=== PATIENT | male | born 1950 | race American Indian/Alaskan Native ===

== ENCOUNTER 2017-03-11 21:38 | Inpatient (IN) | payer MEDICARE ==
[2017-03-11 23:18] LABS: Hematocrit 22.1 % (35.5-45.6); Hemoglobin 7.2 gm/dl (11.8-15.2); Mean Corpuscular HGB Conc 33 % (32-34); Mean Corpuscular Hemoglobin 30 pg (28-32); Mean Corpuscular Volume 92 fl (84-94); Platelet Count 104 K/mm3 (140-440)
[2017-03-11 23:29] LABS: INR 1.84 (0.87-1.13)
[2017-03-11 23:30] LABS: Partial Thromboplastin Time 52.8 Sec. (24.2-36.6)
[2017-03-11] MEDS ORDERED: NACL 0.9% 1000 ML 1,000 ML IV SCH (23:45)
[2017-03-11 23:46] LABS: Alanine Aminotransferase 9 units/L (7-56); Albumin 1.6 g/dL (3.9-5); BUN/Creatinine Ratio 13; Blood Urea Nitrogen 18 mg/dL (9-20); Calcium 7.6 mg/dL (8.4-10.2); Hemolysis Index 12
[2017-03-12 00:48] LABS: Bacteria,Urine 4+ /HPF (Negative); Bilirubin,Urine NEG (Negative); Blood,Urine MOD (Negative); Color,Urine Amber (Yellow); Mucus,Urine 3+ /HPF; Nitrite,Urine POS (Negative); Protein,Urine <15 mg/dL mg/dL (Negative); Urobilinogen,Urine < 2.0 mg/dL (<2.0)
[2017-03-12] MEDS ORDERED: NACL ONE ×2 (00:48→05:21)
[2017-03-12 00:50] LABS: Benzodiazepines Screen,Urine PRESUMPTIVE NEGATIVE; Cannabinoid Screen,Urine PRESUMPTIVE NEGATIVE; Cocaine Screen,Urine PRESUMPTIVE NEGATIVE; Methadone Screen,Urine PRESUMPTIVE NEGATIVE; Opiate Screen,Urine PRESUMPTIVE NEGATIVE
--- NOTE | 2017-03-12 00:54 | XRay Report ---
FINAL REPORT EXAM: XR CXR CLINICAL INDICATIONS: CP FINDINGS: Frontal view of the chest was acquired. The heart is mildly enlarged. There is a pacing device with leads in the right atrium and right ventricle. There is no evidence of congestive heart failure. There is no consolidative infiltrate. IMPRESSION: MILD CARDIOMEGALY. OTHERWISE, NO ACTIVE DISEASE IN THE CHEST
[2017-03-12 01:13] LABS: Amphetamine Screen,Urine PRESUMPTIVE POSITIVE
[2017-03-12] MEDS ORDERED: LEVAQUIN 750MG/150ML 750 MG/150 ML BAG IV ONE ×2 (01:41→08:28)
[2017-03-12] MEDS ORDERED: LEVAQUIN 500MG/100ML 500 MG/100 ML BAG IV ONE ×2 (01:44→08:39)
--- NOTE | 2017-03-12 01:50 | Emergency Department Report ---
ED GI Bleed HPI - General Chief complaint: GI Bleed Stated complaint: AMS Time Seen by Provider: 03/11/17 22:27 Source: family Mode of arrival: Ambulatory Limitations: Altered Mental Status - History of Present Illness Initial comments: 66 yo male who comes in today due to altered mental status and a gi bleed. Per nursing and family the patient has a history of a prior gi bleed. The patient is a poor historian due to his mental status. Gross blood visualized on rectal exam. Hx of atrial fibrillation with a pacemaker placement. MD complaint: melena -: This evening Radiation: none Quality: other (unknown due to patient's altered mental status) Consistency: constant Improves with: none Worsens with: none Context: history of GI bleed Associated Symptoms: other (altered mental status ) - Related Data Allergies Allergy/AdvReac Type Severity Reaction Status Date / Time cefazolin [From Anc] Allergy Anaphylaxis Verified 03/11/17 22:28 lisinopril Allergy Anaphylaxis Verified 03/11/17 22:27 ED Review of Systems ROS: Stated complaint: AMS Other details as noted in HPI Comment: Unobtainable due to pts medical conditions (altered mental status) Gastrointestinal: melena ED Past Medical Hx - Past Medical History Previous Medical History?: Yes Hx Hypertension: Yes Hx CVA: Yes Hx Congestive Heart Failure: Yes Additional medical history: pace maker - Surgical History Past Surgical History?: Yes Additional Surgical History: pacemaker; spinal surgery and left arm surgery - Social History Smoking Status: Unknown if ever smoked Substance Use Type: None ED Physical Exam - General Limitations: Altered Mental Status General appearance: obtunded - Head Head exam: Present: atraumatic, normocephalic - Eye Eye exam: Present: normal appearance - ENT ENT exam: Present: mucous membranes dry - Neck Neck exam: Present: normal inspection - Respiratory Respiratory exam: Present: normal lung sounds bilaterally. Absent: respiratory distress - Cardiovascular Cardiovascular Exam: Present: regular rate, normal rhythm. Absent: systolic murmur, diastolic murmur, rubs, gallop - GI/Abdominal GI/Abdominal exam: Present: soft, normal bowel sounds - Rectal Rectal exam: Present: heme (+) stool (gross blood visualized ), bloody stool - Extremities Exam Extremities exam: Present: other (decubitus ulcers-bilateral heels) - Back Exam Back exam: Present: other (sacral decubitus ulcer) - Neurological Exam Neurological exam: Present: other (altered-not baseline) - Psychiatric Psychiatric exam: Present: other (altered-not at baseline) - Skin Skin exam: Present: other (decubitus ulcers-bilateral heels/sacral area ) ED Course Vital Signs 03/11/17 22:19 Temperature 90.6 F L Pulse Rate 70 Respiratory 12 Rate Blood Pressure 83/62 O2 Sat by Pulse 98 Oximetry - Reevaluation(s) Reevaluation #1: 03/12/17 02:35 I spoke with the hospitalist about admitting the patient. Imaging pending. Dr. Tilley to take over care. ED Medical Decision Making - Lab Data Result diagrams: 03/11/17 22:59 03/11/17 22:59 - Radiology Data Radiology results: report reviewed Mild cardiomegaly. Head CT-no acute pathology CT abdomen/pelvis-moderate stool, bilateral small pleural effusions, anasarca - Medical Decision Making GI bleed Altered mental status Uti Positive drug screen - Differential Diagnosis GI bleed, altered mental status, uti, positive drug screen Critical care attestation.: If time is entered above; I have spent that time in minutes in the direct care of this critically ill patient, excluding procedure time. ED Disposition Clinical Impression: GI bleed, Altered mental status, UTI (urinary tract infection) Disposition: 09 OP ADMIT IP TO THIS HOSP Is pt being admited?: Yes Does the pt Need Aspirin: No Condition: Critical Referrals: ANNA BIRD MD [Primary Care Provider] - 3-5 Days Forms: Accompanied Note Time of Disposition: 03:02
--- NOTE | 2017-03-12 02:23 | Cat Scan Report ---
FINAL REPORT EXAM: CT HEAD/BRAIN WO CON HISTORY: altered mental status TECHNIQUE: Routine axial imaging was obtained of the brain without IV contrast. FINDINGS: There jzki-ja-runzloqk atrophy. There is diminished attenuation of the periventricular white matter compatible with chronic ischemic white matter changes. There is no evidence of acute stroke or hemorrhage. The ventricular system is appropriate in size and is symmetric. There are benign basal ganglial calcifications bilaterally. The visualized sinuses are clear. The mastoid air cells are well pneumatized. The calvarium appears intact IMPRESSION: Novu-gz-ncziqnda atrophy with chronic ischemic white matter changes. No evidence of acute stroke or hemorrhage.
[2017-03-12] MEDS ORDERED: NACL 0.9% 500 ML 500 ML IV ONE ×2 (02:28→05:16)
[2017-03-12] MEDS ORDERED: VITAMIN K (ADULT ONLY) SUB-Q ONE (02:31)
--- NOTE | 2017-03-12 02:35 | Cat Scan Report ---
FINAL REPORT EXAM: CT ABDOMEN PELVIS W CON HISTORY: GI BLEED TECHNIQUE: Routine axial imaging was obtained of the abdomen and pelvis following the intravenous injection of iodinated contrast. Delayed imaging was also obtained. Sagittal coronal reconstructions were reviewed. FINDINGS: The lung bases reveal bilateral small effusions. There is atelectatic changes/infiltrates in the right lower lobe. The gallbladder has been removed. The liver, spleen, adrenal glands and kidneys appear normal. There is no evidence of hydronephrosis. The pancreas is atrophic. There is no evidence of biliary tree dilatation. There is no evidence of distended bowel loops. There is a large amount retained feces throughout the colon. There is no evidence of free air or free fluid. There is a filter in the IVC. There calcification of the abdominal aorta. In the pelvis there are radiation implant seeds in the prostatic bed. The bladder appears normal. The skeletal structures reveal multilevel disc degeneration in the lumbar spine. The surrounding soft tissues reveal reticulation of the subcutaneous fat throughout the abdomen pelvis compatible with anasarca. IMPRESSION: Large amount retained feces in the colon. No evidence of bowel obstruction or pneumoperitoneum. Cholecystectomy. Bilateral small pleural effusions with infiltrate/atelectasis in the right lower lobe. Extensive arthritic changes lumbar spine. Anasarca.
[2017-03-12] MEDS ORDERED: LEVOPHED DRIP 4 MG/NS 250 ML 4 MG/250 ML BAG IV ONE ×3 (03:35→08:05)
--- NOTE | 2017-03-12 04:35 | Emergency Department Report ---
ED General Adult HPI - General Chief complaint: GI Bleed Stated complaint: AMS Time Seen by Provider: 03/11/17 22:27 Source: family Mode of arrival: Ambulatory Limitations: Altered Mental Status - Related Data Allergies Allergy/AdvReac Type Severity Reaction Status Date / Time cefazolin [From [facility]] Allergy Anaphylaxis Verified 03/11/17 22:28 lisinopril Allergy Anaphylaxis Verified 03/11/17 22:27 ED Review of Systems ROS: Stated complaint: AMS Other details as noted in HPI Gastrointestinal: melena ED Past Medical Hx - Past Medical History Previous Medical History?: Yes Hx Hypertension: Yes Hx CVA: Yes Hx Congestive Heart Failure: Yes Additional medical history: pace maker - Surgical History Past Surgical History?: Yes Additional Surgical History: pacemaker; spinal surgery and left arm surgery - Social History Smoking Status: Unknown if ever smoked Substance Use Type: None ED Physical Exam - General Limitations: Altered Mental Status General appearance: obtunded ED Course Vital Signs 03/11/17 03/12/17 03/12/17 22:19 00:07 00:15 Temperature 90.6 F L Pulse Rate 70 73 Respiratory 12 13 16 Rate Blood Pressure 83/62 89/53 O2 Sat by Pulse 98 99 Oximetry 03/12/17 03/12/17 03/12/17 00:31 00:45 01:01 Temperature Pulse Rate 71 70 71 Respiratory 12 15 12 Rate Blood Pressure 89/53 89/53 89/53 O2 Sat by Pulse 98 97 95 Oximetry 03/12/17 03/12/17 03/12/17 01:15 02:12 02:15 Temperature Pulse Rate 74 79 87 Respiratory 11 L 12 12 Rate Blood Pressure 89/53 84/55 85/56 O2 Sat by Pulse 98 100 97 Oximetry 03/12/17 03/12/17 03/12/17 02:31 02:45 03:01 Temperature Pulse Rate 83 81 78 Respiratory 11 L 11 L 18 Rate Blood Pressure 85/56 84/55 58/37 O2 Sat by Pulse 99 98 96 Oximetry 03/12/17 03/12/17 03:15 03:30 Temperature Pulse Rate 76 75 Respiratory 12 14 Rate Blood Pressure 58/37 65/37 O2 Sat by Pulse 96 94 Oximetry - Central Line Placement Right SC Consent Obtained: emergent situation Time Out Performed: Yes Patient Placed on Monitor/Pulse Ox: Yes Prep: mask, gown, gloves Central Line Prep: Chlorhexidine scrub Local Anesthesia Used: Lidocaine 1% Amount of Anesthesia Used (mls): 5 Ultrasound Used for Placement: No Central Line Lumen Inserted: triple Bloods Obtained for Lab: No Central Line Position: good blood return, all ports aspirated, flus, sutured in place with 2-0 Dressing Applied: Tegaderm, sterile gauze/tape Post Procedure X-Ray: tip of catheter in good p Patient Tolerated Procedure: well, no complications Complications: none ED Medical Decision Making - Lab Data Result diagrams: 03/11/17 22:59 03/11/17 22:59 Critical care attestation.: If time is entered above; I have spent that time in minutes in the direct care of this critically ill patient, excluding procedure time. ED Disposition Clinical Impression: Altered mental status, GI bleed, UTI (urinary tract infection) Disposition: OP ADMIT IP TO THIS HOSP Is pt being admited?: Yes Condition: Critical Referrals: ANNA BIRD MD [Primary Care Provider] - 3-5 Days Forms: Accompanied Note
[2017-03-12 04:38] LABS: Creatine Kinase MB 16.4 ng/mL (0.0-4.0)
[2017-03-12] MEDS ORDERED: VANCOMYCIN/NS 1 GM/250 ML 1 GM/250 ML BAG IV ONE (05:17)
[2017-03-12 05:18] LABS: Chol/HDL Ratio 1.94 %
[2017-03-12] MEDS ORDERED: ZOFRAN IV PRN (05:18)
--- NOTE | 2017-03-12 05:28 | History and Physical Report ---
History of Present Illness Date of examination: 03/12/17 History of present illness: 66 year old man with history of Afib, diabetes, coronary artery disease, prostate cancer, hypothyroidism, recent C. difficile was sent to the emergency room from the [facility] for evaluaion of altered mental status and rectal bleed. The patient is awake, he is unable to give a history. He had 1 episode of rectal bleed here in the ER. Blood pressure upon arrival was systolic 83 and dropped to 50s. Review of system is unobtainable PAST MEDICAL HISTORY:Afib, diabetes, coronary artery disease, prostate cancer, hypothyroidism, recent C. difficile PAST SURGICAL HISTORY: Pacemaker FAMILY HISTORY: Unknown SOCIAL HISTORY: residential resident, unknown tobacco, alcohol, drugs Medications and Allergies Allergies Allergy/AdvReac Type Severity Reaction Status Date / Time cefazolin [From Anc] Allergy Anaphylaxis Verified 03/11/17 22:28 lisinopril Allergy Anaphylaxis Verified 03/11/17 22:27 Home Medications Medication Instructions Recorded Confirmed Last Taken Type Acetaminophen 650 mg PO Q4H PRN 03/12/17 03/12/17 Unknown History Ascorbic Acid 500 mg PO QDAY 03/12/17 03/12/17 Unknown History Calcium Alginate [Bertin] 1 each TP QDAY 03/12/17 03/12/17 Unknown History Carvedilol 25 mg PO BID 03/12/17 03/12/17 Unknown History Cholestyramine (with Sugar) 378 gm PO TID 03/12/17 03/12/17 Unknown History [Questran Powder] Ferrous Sulfate [Iron] 325 mg PO QDAY 03/12/17 03/12/17 Unknown History Furosemide [Lasix] 20 mg PO QDAY 03/12/17 03/12/17 Unknown History LORazepam [Ativan] 0.5 mg PO Q6H PRN 03/12/17 03/12/17 Unknown History Levofloxacin [Levaquin] 750 mg PO QDAY 03/12/17 03/12/17 Unknown History Levothyroxine Sodium 200 mcg PO QDAY 03/12/17 03/12/17 Unknown History Magnesium Oxide 400 mg PO BID 03/12/17 03/12/17 Unknown History Multivit-Min/Iron Fum/Folic AC 1 each PO QDAY 03/12/17 03/12/17 Unknown History [Bdwqq-Kbbdydw-Drjneoyv Tablet] Ondansetron [Zofran Odt] 4 mg PO Q6H 03/12/17 03/12/17 Unknown History Pantoprazole [Protonix TAB] 40 mg PO QDAY 03/12/17 03/12/17 Unknown History Potassium Chloride 20 meq PO BID 03/12/17 03/12/17 Unknown History Povidone-Iodine [Betadine] 30 ml OP QDAY 03/12/17 03/12/17 Unknown History Rivaroxaban [Xarelto] 20 mg PO QDAY 03/12/17 03/12/17 Unknown History Silver Sulfadiazine [Silvadene] 1,000 gm TP QDAY 03/12/17 03/12/17 Unknown History Sodium Bicarbonate 650 mg PO Q8H 03/12/17 03/12/17 Unknown History Trazodone HCl 50 mg PO QDAY 03/12/17 03/12/17 Unknown History Zinc Sulfate 220 mg PO QDAY 03/12/17 03/12/17 Unknown History metroNIDAZOLE [Flagyl] 500 mg PO Q8HR 03/12/17 03/12/17 Unknown History oxyCODONE /ACETAMINOPHEN [Percocet 1 tab PO Q4HR 03/12/17 03/12/17 Unknown History 5/325] Active Meds: Active Medications Acetaminophen (Tylenol) 650 mg PO Q4H PRN PRN Reason: Pain MILD(1-3)/Fever >100.5/GUAJARDO Sodium Chloride (Nacl 0.9% 1000 Ml) 1,000 mls @ 40 mls/hr IV DIRECT CORNLEIO Vancomycin HCl (Vancomycin/Ns 1 Gm/250 Ml) 1 gm in 250 mls @ 167.007 mls/hr IV ONCE ONE PRN Reason: Protocol Stop: 03/12/17 06:46 Ondansetron HCl (Zofran) 4 mg IV Q8H PRN PRN Reason: N/V unrelieved by Reglan Exam - Physical Exam Narrative exam: Gen. appearance: Patient lying in bed in no acute distress HEENT: Normocephalic/atraumatic, pupils equal round reactive to light, extra occular movement intact, no scleral icterus, no JVD or thyromegaly or nodule, neck is supple, mucous membrane moist, no erythema or exudate Heart: S1-S2, regular rate and rhythm Lungs: Clear to auscultation bilateral breathing comfortable Abdomen: Positive bowel sounds, nontender, nondistended, no organomegaly Extremities: + edema, cyanosis, clubbing Neuro:: Difficult to assess Skin: Lower extremities and sacral ulcers, No rash, nodules - Constitutional Vitals: Temp Pulse Resp BP Pulse Ox 90.6 F L 75 14 65/37 94 03/11/17 22:19 03/12/17 03:30 03/12/17 03:30 03/12/17 03:30 03/12/17 03:30 Results - Labs CBC & Chem 7: 03/20/17 05:30 03/20/17 05:30 Labs: Abnormal lab results 03/11/17 03/11/17 03/11/17 Range/Units 00:10 22:59 22:59 RBC 2.40 L (3.65-5.03) M/mm3 Hgb 7.2 L (11.8-15.2) gm/dl Hct 22.1 L (35.5-45.6) % RDW 18.0 H (13.2-15.2) % Plt Count 104 L (140-440) K/mm3 PT 22.3 H (12.2-14.9) Sec. INR 1.84 H (0.87-1.13) APTT 52.8 H (24.2-36.6) Sec. Chloride (98-107) mmol/L Glucose (75-100) mg/dL Calcium (8.4-10.2) mg/dL Total Creatine Kinase (55-170) units/L CK-MB (CK-2) (0.0-4.0) ng/mL CK-MB (CK-2) Rel Index (0-4) Troponin T (0.00-0.029) ng/mL NT-Pro-B Natriuret Pep (0-900) pg/mL Total Protein (6.3-8.2) g/dL Albumin (3.9-5) g/dL LDL Cholesterol Direct (50-130) mg/dL HDL Cholesterol (40-59) mg/dL Urine WBC (Auto) 142.0 H (0.0-6.0) /HPF Crossmatch 03/11/17 03/11/17 03/12/17 Range/Units 22:59 22:59 Unknown RBC (3.65-5.03) M/mm3 Hgb (11.8-15.2) gm/dl Hct (35.5-45.6) % RDW (13.2-15.2) % Plt Count (140-440) K/mm3 PT (12.2-14.9) Sec. INR (0.87-1.13) APTT (24.2-36.6) Sec. Chloride 108.7 H (98-107) mmol/L Glucose 72 L (75-100) mg/dL Calcium 7.6 L (8.4-10.2) mg/dL Total Creatine Kinase 272 H (55-170) units/L CK-MB (CK-2) 16.4 H (0.0-4.0) ng/mL CK-MB (CK-2) Rel Index 6.0 H (0-4) Troponin T 0.165 H* (0.00-0.029) ng/mL NT-Pro-B Natriuret Pep 4673 H (0-900) pg/mL Total Protein 4.9 L (6.3-8.2) g/dL Albumin 1.6 L (3.9-5) g/dL LDL Cholesterol Direct 26 L (50-130) mg/dL HDL Cholesterol 34 L (40-59) mg/dL Urine WBC (Auto) (0.0-6.0) /HPF Crossmatch See Detail - Imaging and Cardiology CT scan - abdomen: report reviewed CT Scan - head: report reviewed CT scan - pelvis: report reviewed Assessment and Plan Assessment Rectal bleed Hypotension, GI related Pneumonia Blood loss anemia UTI Abnormal cardiac enzymes Afib with coagulopathy Thrombocytopenia Chf, stable Hypothyroidism LE and sacral ulcers History of prostate cancer Plan Admit to medicine Continue levophed drip, and IV fluids secondary to CHF Transfuse blood and frozen plasma, check serial hemoglobin Consult GI, case discussed with Dr Baez Consult cardiology, case discussed with dr Garcia, consult critical care Check cardiac enzymes, echo Start IV levaquin, give a dose of vancomycin, follow cultures Consult wound care Dvt prophalaxis
--- NOTE | 2017-03-12 05:30 | XRay Report ---
FINAL REPORT EXAM: XR CHEST 1V AP HISTORY: central line placement-right subclavian TECHNIQUE: A portable upright view of the chest was obtained. Comparison is made to the study of 03/11/2017. FINDINGS: Since the previous study there is placement of a right-sided central venous line 3 subclavian venous approach. The tip of the line is in the distal superior vena cava. There is no evidence of pneumothorax. The heart is mildly enlarged. The lungs are not congested. The thoracic aorta is moderately tortuous. Pleural fluid is not seen. There is a pacemaker overlying the left chest wall with leads in the right atrium right ventricle. The bones and soft tissues do not show any acute changes. IMPRESSION: Satisfactory placement of right-sided subclavian line with the tip in the distal superior vena cava. No pneumothorax. Cardiomegaly. Tortuosity of the thoracic aorta. No acute infiltrates or congestion.
[2017-03-12 06:15] LABS: Hematocrit 22.4 % (35.5-45.6); Hemoglobin 7.4 gm/dl (11.8-15.2)
[2017-03-12 06:48] LABS: Creatine Kinase MB 15.2 ng/mL (0.0-4.0)
--- NOTE | 2017-03-12 08:41 | Event Note ---
Date: 03/12/17 Patient with GI bleed with elevated Troponins. GI and Cardiology consulted.
--- NOTE | 2017-03-12 10:08 | Consultation ---
History of Present Illness Consult date: 03/12/17 Requesting physician: ANNA IVEY Consult reason: abnormal cardiac enzymes History of present illness: The patient unfortunately is a very poor historian. He is alert but unable to give any history. Apparently was transferred from the [place] [facility] after he had an episode of rectal bleed. Patient has a history apparently of C. difficile colitis and also chronic atrial fibrillation on long-term Coumadin therapy. Also noted is a indwelling AICD. Patient was noted to be significantly anemic. Troponin was borderline elevated and hence cardiology is being consulted. No apparent ischemic changes in the EKG. Unfortunately no further history could be obtained Past History Past Medical History: atrial fib, other (DVT) Past Surgical History: Other (could not be obtained) Social history: other (could not be obtained) Family history: other (could not be obtained) Medications and Allergies Allergies Allergy/AdvReac Type Severity Reaction Status Date / Time cefazolin [From [facility]] Allergy Anaphylaxis Verified 03/11/17 22:28 lisinopril Allergy Anaphylaxis Verified 03/11/17 22:27 Home Medications Medication Instructions Recorded Confirmed Last Taken Type Acetaminophen 650 mg PO PRN 03/12/17 Unknown History Ascorbic Acid 500 mg PO QDAY 03/12/17 03/12/17 Unknown History Calcium Alginate [Bertin] 1 each TP QDAY 03/12/17 03/12/17 Unknown History Carvedilol 25 mg PO BID 03/12/17 03/12/17 Unknown History Cholestyramine (with Sugar) 378 gm PO 03/12/17 Unknown History [Questran Powder] Ferrous Sulfate [Iron] 325 mg PO QDAY 03/12/17 03/12/17 Unknown History Furosemide [Lasix] 20 mg PO QDAY 03/12/17 03/12/17 Unknown History LORazepam [Ativan] 0.5 mg PO Q6H PRN 03/12/17 03/12/17 Unknown History Levofloxacin [Levaquin] 750 mg PO QDAY 03/12/17 03/12/17 Unknown History Levothyroxine Sodium 200 mcg PO QDAY 03/12/17 03/12/17 Unknown History Magnesium Oxide 400 mg PO BID 03/12/17 03/12/17 Unknown History Multivit-Min/Iron Fum/Folic AC 1 each PO QDAY 03/12/17 03/12/17 Unknown History [Aarpv-Hcsvpep-Luirvcny Tablet] Ondansetron [Zofran Odt] 4 mg PO Q6H 03/12/17 03/12/17 Unknown History Pantoprazole [Protonix TAB] 40 mg PO 03/12/17 Unknown History Potassium Chloride 20 meq PO BID 03/12/17 03/12/17 Unknown History Povidone-Iodine [Betadine] 30 ml OP QDAY 03/12/17 03/12/17 Unknown History Rivaroxaban [Xarelto] 20 mg PO QDAY 03/12/17 03/12/17 Unknown History Silver Sulfadiazine [Silvadene] 1,000 gm TP 03/12/17 Unknown History Sodium Bicarbonate 650 mg PO 03/12/17 Unknown History Trazodone HCl 50 mg PO QDAY 03/12/17 03/12/17 Unknown History Zinc Sulfate 220 mg PO QDAY 03/12/17 03/12/17 Unknown History metroNIDAZOLE [Flagyl] 500 mg PO Q8HR 03/12/17 03/12/17 Unknown History oxyCODONE /ACETAMINOPHEN [Percocet 1 tab PO Q4HR 03/12/17 03/12/17 Unknown History 5/325] Active Meds: Active Medications Acetaminophen (Tylenol) 650 mg PO Q4H PRN PRN Reason: Pain MILD(1-3)/Fever >100.5/GUAJARDO Sodium Chloride (Nacl 0.9% 1000 Ml) 1,000 mls @ 40 mls/hr IV DIRECT CORNELIO Norepinephrine (Levophed Drip 4 Mg/Ns 250 Ml) 4 mg in 250 mls @ 7.5 mls/hr IV TITR ONE; 2 MCG/MIN PRN Reason: Protocol Stop: 03/13/17 13:04 Last Titration: 03/12/17 04:30 Dose: 20 mcg/min, 75 mls/hr Ondansetron HCl (Zofran) 4 mg IV Q8H PRN PRN Reason: N/V unrelieved by Reglan Review of Systems All systems: negative (as mentioned in H&P. Unfortunately no good history could be affected per the patient) Physical Examination Vital Signs Temp Pulse Resp BP Pulse Ox 90.6 F L 70 12 83/62 98 03/11/17 22:19 03/11/17 22:19 03/11/17 22:19 03/11/17 22:19 03/11/17 22:19 Narrative exam: Vitals reviewed GEN: No acute distress noted HEENT: Carotids 2+ NECK: Supple CVS: S1 and S2 heard no significant murmur or gallop noted LUNGS/CHEST: Normal auscultation ABD: Soft nontender Extremities: Contracted with 1-2+ edema fever pulses NEURO: Alert moves all all 4 extremities Results 03/12/17 05:51 03/11/17 22:59 Cardiac Enzymes 03/11/17 03/12/17 03/12/17 Range/Units 22:59 05:51 Unknown AST 24 (5-40) units/L CK-MB (CK-2) 15.2 H 16.4 H (0.0-4.0) ng/mL Coagulation 03/11/17 Range/Units 22:59 PT 22.3 H (12.2-14.9) Sec. INR 1.84 H (0.87-1.13) APTT 52.8 H (24.2-36.6) Sec. Lipids 03/12/17 Range/Units Unknown Triglycerides 34 (2-149) mg/dL Cholesterol 66 (50-199) mg/dL HDL Cholesterol 34 L (40-59) mg/dL Cholesterol/HDL Ratio 1.94 % CBC 03/11/17 03/12/17 Range/Units 22:59 05:51 WBC 7.6 (4.5-11.0) K/mm3 RBC 2.40 L (3.65-5.03) M/mm3 Hgb 7.2 L 7.4 L (11.8-15.2) gm/dl Hct 22.1 L 22.4 L (35.5-45.6) % Plt Count 104 L (140-440) K/mm3 Comprehensive Metabolic Panel 03/11/17 Range/Units 22:59 Sodium 143 (137-145) mmol/L Potassium 4.9 (3.6-5.0) mmol/L Chloride 108.7 H (98-107) mmol/L Carbon Dioxide 26 (22-30) mmol/L BUN 18 (9-20) mg/dL Creatinine 1.4 (0.8-1.5) mg/dL Glucose 72 L (75-100) mg/dL Calcium 7.6 L (8.4-10.2) mg/dL AST 24 (5-40) units/L ALT 9 (7-56) units/L Alkaline Phosphatase 85 (35-129) units/L Total Protein 4.9 L (6.3-8.2) g/dL Albumin 1.6 L (3.9-5) g/dL EKG interpretations - Telemetry EKG Rhythm: Sinus Rhythm Assessment and Plan 1. GI bleed workup as per primary team 2. Nonspecific elevated troponin in the setting of GI bleed with a known underlying history 3. Hypotension likely secondary to GI bleed and dehydration 4. Advanced dementia with poor verbal status 5. History of atrial fibrillation currently in sinus rhythm 6. Presence of defibrillator likely for cardiomyopathy Plan No workup for elevated troponin Extremely conservative care Poor prognosis
[2017-03-12 10:48] LABS: Hematocrit 26.3 % (35.5-45.6); Hemoglobin 8.5 gm/dl (11.8-15.2)
[2017-03-12 11:42] LABS: Creatine Kinase MB 12.7 ng/mL (0.0-4.0)
[2017-03-12] MEDS ORDERED: D50W (25GM) Syringe IV ONE (12:14)
--- NOTE | 2017-03-12 12:20 | Gastroenterology Consultation ---
History of Present Illness - Reason for Consult Consult date: 03/12/17 Anemia, Rectal Bleed Requesting physician: ANNA IVEY - History of Present Illness The patient is non-verbal, and the hx is per the sister (knowledgeable, present) , nursing staff, and chart. The patient was brought to the ER for AMS from a senior living (newly there for 1 week after d/c from [facility] for "c diff") but has been in/out of [facility], [facility], [facility], [place], and [place] over the last 6 months. His condition started with a fall a few months ago, and he was dx with spinal stenosis that led to cervical surgery. He had heart issues (?AF ?CHF) and a pacemaker was placed ("his heart stopped for two minutes "). He has become progressively more immobile/bedbound, and his mental status has waxed and waned since then. At every admission, per the sister, he is noted to have chronic anemia, and he gets blood. A colonoscopy was done at [facility] (she will bring the records), and it showed hemorrhoids only. She is not sure about an EGD, but he had ulcers years ago. He takes chronic warfarin for the atrial fibrillation. He had a CT in the ER that showed a likely mild rectal stool impaction, and he had a small amount of blood in his stool in the ER (none on the floor). He was placed on levophed on admit, but this is being weaned off after his blood transfusion. Past History Past Medical History: atrial fib, anemia, cancer (Hx of prostate CA), hypertension, other (DVT, pacemaker) Past Surgical History: appendectomy, cholecystectomy, Other (cervical neck, PM) Social history: other (Lives in [place]; recently was with family) Family history: no significant family history Medications and Allergies Allergies Allergy/AdvReac Type Severity Reaction Status Date / Time cefazolin [From Anc] Allergy Anaphylaxis Verified 03/11/17 22:28 lisinopril Allergy Anaphylaxis Verified 03/11/17 22:27 Home Medications Medication Instructions Recorded Confirmed Last Taken Type Acetaminophen 650 mg PO Q4H PRN 03/12/17 03/12/17 Unknown History Ascorbic Acid 500 mg PO QDAY 03/12/17 03/12/17 Unknown History Calcium Alginate [Bertin] 1 each TP QDAY 03/12/17 03/12/17 Unknown History Carvedilol 25 mg PO BID 03/12/17 03/12/17 Unknown History Cholestyramine (with Sugar) 378 gm PO TID 03/12/17 03/12/17 Unknown History [Questran Powder] Ferrous Sulfate [Iron] 325 mg PO QDAY 03/12/17 03/12/17 Unknown History Furosemide [Lasix] 20 mg PO QDAY 03/12/17 03/12/17 Unknown History LORazepam [Ativan] 0.5 mg PO Q6H PRN 03/12/17 03/12/17 Unknown History Levofloxacin [Levaquin] 750 mg PO QDAY 03/12/17 03/12/17 Unknown History Levothyroxine Sodium 200 mcg PO QDAY 03/12/17 03/12/17 Unknown History Magnesium Oxide 400 mg PO BID 03/12/17 03/12/17 Unknown History Multivit-Min/Iron Fum/Folic AC 1 each PO QDAY 03/12/17 03/12/17 Unknown History [Vzdpb-Phbyyfb-Bhuwmomk Tablet] Ondansetron [Zofran Odt] 4 mg PO Q6H 03/12/17 03/12/17 Unknown History Pantoprazole [Protonix TAB] 40 mg PO QDAY 03/12/17 03/12/17 Unknown History Potassium Chloride 20 meq PO BID 03/12/17 03/12/17 Unknown History Povidone-Iodine [Betadine] 30 ml OP QDAY 03/12/17 03/12/17 Unknown History Rivaroxaban [Xarelto] 20 mg PO QDAY 03/12/17 03/12/17 Unknown History Silver Sulfadiazine [Silvadene] 1,000 gm TP QDAY 03/12/17 03/12/17 Unknown History Sodium Bicarbonate 650 mg PO Q8H 03/12/17 03/12/17 Unknown History Trazodone HCl 50 mg PO QDAY 03/12/17 03/12/17 Unknown History Zinc Sulfate 220 mg PO QDAY 03/12/17 03/12/17 Unknown History metroNIDAZOLE [Flagyl] 500 mg PO Q8HR 03/12/17 03/12/17 Unknown History oxyCODONE /ACETAMINOPHEN [Percocet 1 tab PO Q4HR 03/12/17 03/12/17 Unknown History 5/325] Active Meds: Active Medications Acetaminophen (Tylenol) 650 mg PO Q4H PRN PRN Reason: Pain MILD(1-3)/Fever >100.5/GUAJARDO Dextrose (D50w (25gm) Syringe) 25 ml IV ONCE ONE Stop: 03/12/17 12:15 Sodium Chloride (Nacl 0.9% 1000 Ml) 1,000 mls @ 40 mls/hr IV DIRECT CORNELIO Norepinephrine (Levophed Drip 4 Mg/Ns 250 Ml) 4 mg in 250 mls @ 7.5 mls/hr IV TITR ONE; 2 MCG/MIN PRN Reason: Protocol Stop: 03/13/17 13:04 Last Titration: 03/12/17 04:30 Dose: 20 mcg/min, 75 mls/hr Metronidazole (Flagyl 500 Mg/100 Ml) 500 mg in 100 mls @ 100 mls/hr IV Q8H CORNELIO Ondansetron HCl (Zofran) 4 mg IV Q8H PRN PRN Reason: N/V unrelieved by Reglan I have reviewed/reconciled the medication. Review of Systems - Review of Systems ROS unobtainable: due to mental status Exam - Constitutional Vital Signs: Temp Pulse Resp BP Pulse Ox 97.2 F L 79 14 113/89 98 03/12/17 08:30 03/12/17 07:10 03/12/17 07:10 03/12/17 07:10 03/12/17 07:10 General appearance: mild distress (resists passive movement of extremeties) - EENT Eyes: PERRL, EOM intact ENT: clear oral mucosa, poor dentition, no thrush - Neck Neck: supple, normal ROM - Respiratory Respiratory effort: normal Respiratory: bilateral: CTA - Cardiovascular Rhythm: other (Pacemaker site L chest wall with some eschar still present) Heart Sounds: Present: S1 & S2 Extremities: no ischemia, No edema, abnormal (Bilateral ankles wrapped with skin breakdown noted as per RN notes) - Gastrointestinal General gastrointestinal: Present: soft, non-tender, distended (minimal distention without guard or peritoneal signs) - Integumentary Integumentary: Present: warm, dry - Neurologic Neurological: other (Opens eyes, contracted, no response to commands, mumbles a few words) - Labs CBC & Chem 7: 03/12/17 10:45 03/11/17 22:59 Lab Results: Laboratory Results - last 24 hr 03/11/17 03/11/17 03/11/17 00:10 00:10 22:59 WBC 7.6 RBC 2.40 L Hgb 7.2 L Hct 22.1 L MCV 92 MCH 30 MCHC 33 RDW 18.0 H Plt Count 104 L PT INR APTT Sodium Potassium Chloride Carbon Dioxide Anion Gap BUN Creatinine Estimated GFR BUN/Creatinine Ratio Glucose Calcium Total Bilirubin AST ALT Alkaline Phosphatase Total Creatine Kinase CK-MB (CK-2) CK-MB (CK-2) Rel Index Troponin T NT-Pro-B Natriuret Pep Total Protein Albumin Albumin/Globulin Ratio Triglycerides Cholesterol LDL Cholesterol Direct HDL Cholesterol Cholesterol/HDL Ratio Urine Color Aide Urine Turbidity Clear Urine pH 5.0 Ur Specific [place] 1.018 Urine Protein <15 mg/dl Urine Glucose (UA) Neg Urine Ketones Neg Urine Blood Mod Urine Nitrite Pos Urine Bilirubin Neg Urine Urobilinogen < 2.0 Ur Leukocyte Esterase Lg Urine WBC (Auto) 142.0 H Urine RBC (Auto) 9.0 U Epithel Cells (Auto) < 1.0 Urine Bacteria (Auto) 4+ Urine Mucus 3+ Urine Opiates Screen Presumptive negative Urine Methadone Screen Presumptive negative Ur Barbiturates Screen Presumptive negative Ur Phencyclidine Scrn Presumptive negative Ur Amphetamines Screen Presumptive positive U Benzodiazepines Scrn Presumptive negative Urine Cocaine Screen Presumptive negative U Marijuana (THC) Screen Presumptive negative Drugs of Abuse Note Disclamer Blood Type Antibody Screen Crossmatch 03/11/17 03/11/17 03/11/17 22:59 22:59 22:59 WBC RBC Hgb Hct MCV MCH MCHC RDW Plt Count PT 22.3 H INR 1.84 H APTT 52.8 H Sodium 143 Potassium 4.9 Chloride 108.7 H Carbon Dioxide 26 Anion Gap 13 BUN 18 Creatinine 1.4 Estimated GFR > 60 BUN/Creatinine Ratio 13 Glucose 72 L Calcium 7.6 L Total Bilirubin 0.60 AST 24 ALT 9 Alkaline Phosphatase 85 Total Creatine Kinase CK-MB (CK-2) CK-MB (CK-2) Rel Index Troponin T NT-Pro-B Natriuret Pep 4673 H Total Protein 4.9 L Albumin 1.6 L Albumin/Globulin Ratio 0.5 Triglycerides Cholesterol LDL Cholesterol Direct HDL Cholesterol Cholesterol/HDL Ratio Urine Color Urine Turbidity Urine pH Ur Specific [place] Urine Protein Urine Glucose (UA) Urine Ketones Urine Blood Urine Nitrite Urine Bilirubin Urine Urobilinogen Ur Leukocyte Esterase Urine WBC (Auto) Urine RBC (Auto) U Epithel Cells (Auto) Urine Bacteria (Auto) Urine Mucus Urine Opiates Screen Urine Methadone Screen Ur Barbiturates Screen Ur Phencyclidine Scrn Ur Amphetamines Screen U Benzodiazepines Scrn Urine Cocaine Screen U Marijuana (THC) Screen Drugs of Abuse Note Blood Type O POSITIVE Antibody Screen Negative Crossmatch See Detail 03/12/17 03/12/17 03/12/17 05:51 05:51 10:45 WBC RBC Hgb 7.4 L Hct 22.4 L MCV MCH MCHC RDW Plt Count PT INR APTT Sodium Potassium Chloride Carbon Dioxide Anion Gap BUN Creatinine Estimated GFR BUN/Creatinine Ratio Glucose Calcium Total Bilirubin AST ALT Alkaline Phosphatase Total Creatine Kinase 251 H 238 H CK-MB (CK-2) 15.2 H 12.7 H CK-MB (CK-2) Rel Index 6.0 H 5.3 H Troponin T 0.151 H* 0.153 H* NT-Pro-B Natriuret Pep Total Protein Albumin Albumin/Globulin Ratio Triglycerides Cholesterol LDL Cholesterol Direct HDL Cholesterol Cholesterol/HDL Ratio Urine Color Urine Turbidity Urine pH Ur Specific [place] Urine Protein Urine Glucose (UA) Urine Ketones Urine Blood Urine Nitrite Urine Bilirubin Urine Urobilinogen Ur Leukocyte Esterase Urine WBC (Auto) Urine RBC (Auto) U Epithel Cells (Auto) Urine Bacteria (Auto) Urine Mucus Urine Opiates Screen Urine Methadone Screen Ur Barbiturates Screen Ur Phencyclidine Scrn Ur Amphetamines Screen U Benzodiazepines Scrn Urine Cocaine Screen U Marijuana (THC) Screen Drugs of Abuse Note Blood Type Antibody Screen Crossmatch 03/12/17 03/12/17 10:45 Unknown WBC RBC Hgb 8.5 L Hct 26.3 L MCV MCH MCHC RDW Plt Count PT INR APTT Sodium Potassium Chloride Carbon Dioxide Anion Gap BUN Creatinine Estimated GFR BUN/Creatinine Ratio Glucose Calcium Total Bilirubin AST ALT Alkaline Phosphatase Total Creatine Kinase 272 H CK-MB (CK-2) 16.4 H CK-MB (CK-2) Rel Index 6.0 H Troponin T 0.165 H* NT-Pro-B Natriuret Pep Total Protein Albumin Albumin/Globulin Ratio Triglycerides 34 Cholesterol 66 LDL Cholesterol Direct 26 L HDL Cholesterol 34 L Cholesterol/HDL Ratio 1.94 Urine Color Urine Turbidity Urine pH Ur Specific [place] Urine Protein Urine Glucose (UA) Urine Ketones Urine Blood Urine Nitrite Urine Bilirubin Urine Urobilinogen Ur Leukocyte Esterase Urine WBC (Auto) Urine RBC (Auto) U Epithel Cells (Auto) Urine Bacteria (Auto) Urine Mucus Urine Opiates Screen Urine Methadone Screen Ur Barbiturates Screen Ur Phencyclidine Scrn Ur Amphetamines Screen U Benzodiazepines Scrn Urine Cocaine Screen U Marijuana (THC) Screen Drugs of Abuse Note Blood Type Antibody Screen Crossmatch Assessment and Plan - Patient Problems (1) Fecal impaction in rectum Current Visit: Yes Status: Acute Plan to address problem: - Will begin daily sennakot. - Enemas/manual disimpaction as needed. - Likely exacerbating recent rectal bleeding. (2) GI bleed Current Visit: Yes Status: Acute Plan to address problem: - Per sister, progressive anemia for the last 6 months with (-) colonoscopy ( and ?EGD) at [facility] earlier this year. - Patient has required multiple PRBC transfusions at his various hospitalizations, but never had severe/gross bleeding, only trace/smears of blood with BMs. - No prior Hematology workup per family. - Patient is on [facility] coumad[facility] therapy, but will hold this for now as he appears intolerant. - Long d/w the sister about goals of care given multiple hospitalizations, progression to senior living, etc; per her, she and the patient's son have thought recently that the patient is "tired" and does not want any further invasive testing done. They do not want intubations, dialysis, chest compressions, etc, although there is no formal Living Will/POA for health care. From my interaction, it appears the family is wishing for comfort measures/ palliative care only at this point, though they will need to discuss further. Will continue to monitor at present.
[2017-03-12] MEDS: FLAGYL 500 MG/100 ML 500 MG/100 ML BAG IV SCH ×2 (12:43→21:58)
[2017-03-12] MEDS: LEVOPHED 8 MG in NACL 0.9% 250ML 242 ML IV SCH (13:22)
[2017-03-12] MEDS: D5/0.45NS 1,000 ML IV SCH (13:22)
[2017-03-12 13:52] LABS: Hematocrit 24.5 % (35.5-45.6); Hemoglobin 8.2 gm/dl (11.8-15.2)
--- NOTE | 2017-03-12 14:47 | Consultation ---
History of Present Illness Consult date: 03/12/17 Reason for consult: other (hypotension) History of present illness: istory of present illness: The patient unfortunately is a very poor historian. He is alert but unable to give any history. [facility] had an episode of rectal bleed. Patient has a history apparently of C. difficile colitis and also chronic atrial fibrillation on long-term Coumadin therapy. Also noted is a indwelling AICD. Patient was noted to be significantly anemic. Troponin was borderline elevated and hence cardiology is being consulted. No apparent ischemic changes in the EKG. Unfortunately no further history could be obtained Past History Past Medical History: atrial fib, anemia, cancer (Hx of prostate CA), hypertension, other (DVT, pacemaker) Past Surgical History: appendectomy, cholecystectomy, Other (cervical neck, PM) Social history: other (Lives in [place]; recently was with family) Family history: no significant family history Medications and Allergies Allergies Allergy/AdvReac Type Severity Reaction Status Date / Time cefazolin [From [facility]] Allergy Anaphylaxis Verified 03/11/17 22:28 lisinopril Allergy Anaphylaxis Verified 03/11/17 22:27 Home Medications Medication Instructions Recorded Confirmed Last Taken Type Acetaminophen 650 mg PO Q4H PRN 03/12/17 03/12/17 Unknown History Ascorbic Acid 500 mg PO QDAY 03/12/17 03/12/17 Unknown History Calcium Alginate [Bertin] 1 each TP QDAY 03/12/17 03/12/17 Unknown History Carvedilol 25 mg PO BID 03/12/17 03/12/17 Unknown History Cholestyramine (with Sugar) 378 gm PO TID 03/12/17 03/12/17 Unknown History [Questran Powder] Ferrous Sulfate [Iron] 325 mg PO QDAY 03/12/17 03/12/17 Unknown History Furosemide [Lasix] 20 mg PO QDAY 03/12/17 03/12/17 Unknown History LORazepam [Ativan] 0.5 mg PO Q6H PRN 03/12/17 03/12/17 Unknown History Levofloxacin [Levaquin] 750 mg PO QDAY 03/12/17 03/12/17 Unknown History Levothyroxine Sodium 200 mcg PO QDAY 03/12/17 03/12/17 Unknown History Magnesium Oxide 400 mg PO BID 03/12/17 03/12/17 Unknown History Multivit-Min/Iron Fum/Folic AC 1 each PO QDAY 03/12/17 03/12/17 Unknown History [[id number]-Hzmjhdt-Ymjxymoq Tablet] Ondansetron [Zofran Odt] 4 mg PO Q6H 03/12/17 03/12/17 Unknown History Pantoprazole [Protonix TAB] 40 mg PO QDAY 03/12/17 03/12/17 Unknown History Potassium Chloride 20 meq PO BID 03/12/17 03/12/17 Unknown History Povidone-Iodine [Betadine] 30 ml OP QDAY 03/12/17 03/12/17 Unknown History Rivaroxaban [Xarelto] 20 mg PO QDAY 03/12/17 03/12/17 Unknown History Silver Sulfadiazine [Silvadene] 1,000 gm TP QDAY 03/12/17 03/12/17 Unknown History Sodium Bicarbonate 650 mg PO Q8H 03/12/17 03/12/17 Unknown History Trazodone HCl 50 mg PO QDAY 03/12/17 03/12/17 Unknown History Zinc Sulfate 220 mg PO QDAY 03/12/17 03/12/17 Unknown History metroNIDAZOLE [Flagyl] 500 mg PO Q8HR 03/12/17 03/12/17 Unknown History oxyCODONE /ACETAMINOPHEN [Percocet 1 tab PO Q4HR 03/12/17 03/12/17 Unknown History 5/325] Active Meds: Active Medications Acetaminophen (Tylenol) 650 mg PO Q4H PRN PRN Reason: Pain MILD(1-3)/Fever >100.5/GUAJARDO Sodium Chloride (Nacl 0.9% 1000 Ml) 1,000 mls @ 40 mls/hr IV DIRECT CORNELIO Norepinephrine (Levophed Drip 4 Mg/Ns 250 Ml) 4 mg in 250 mls @ 7.5 mls/hr IV TITR ONE; 2 MCG/MIN PRN Reason: Protocol Stop: 03/13/17 13:04 Last Titration: 03/12/17 10:30 Dose: Infused Metronidazole (Flagyl 500 Mg/100 Ml) 500 mg in 100 mls @ 100 mls/hr IV Q8H CORNELIO Last Admin: 03/12/17 12:43 Dose: 100 mls/hr Dextrose/Sodium Chloride (D5/0.45ns) 1,000 mls @ 75 mls/hr IV DIRECT CORNELIO Last Admin: 03/12/17 13:22 Dose: 75 mls/hr Norepinephrine 8 mg/ Sodium (Chloride) 250 mls @ 3.75 mls/hr IV TITR CORNELIO; 2 MCG /MIN PRN Reason: Protocol Last Admin: 03/12/17 13:22 Dose: 8 mcg/min, 15 mls/hr Ondansetron HCl (Zofran) 4 mg IV Q8H PRN PRN Reason: N/V unrelieved by Reglan Senna/Docusate Sodium (Senokot S) 2 tab PO QHS CORNELIO Review of Systems ROS unobtainable: due to mental status Physical Examination Vital signs: Vital Signs Temp Pulse Resp BP Pulse Ox 90.6 F L 70 12 83/62 98 03/11/17 22:19 03/11/17 22:19 03/11/17 22:19 03/11/17 22:19 03/11/17 22:19 General appearance: no acute distress, lethargic, appears uncomfortable Eyes: non-icteric ENT: oropharynx dry Neck: other (rigid in all directions) Effort: normal Ascultation: Bilateral: clear Cardiovascular: irregular rhythm (atrial fibrillation) Integumentary: decubitus ulcer, other Extremities: other (contracture deformities of upper and lower extremities) Results - Laboratory Findings CBC and BMP: 03/12/17 13:40 03/11/17 22:59 PT/INR, D-dimer PT 22.3 Sec. (12.2-14.9) H 03/11/17 22:59 INR 1.84 (0.87-1.13) H 03/11/17 22:59 Abnormal lab findings: Abnormal Labs 03/11/17 03/11/17 03/11/17 00:10 22:59 22:59 RBC 2.40 L Hgb 7.2 L Hct 22.1 L RDW 18.0 H Plt Count 104 L PT 22.3 H INR 1.84 H APTT 52.8 H Chloride Glucose Calcium Total Creatine Kinase CK-MB (CK-2) CK-MB (CK-2) Rel Index Troponin T NT-Pro-B Natriuret Pep Total Protein Albumin LDL Cholesterol Direct HDL Cholesterol Urine WBC (Auto) 142.0 H Crossmatch 03/11/17 03/11/17 03/12/17 22:59 22:59 05:51 RBC Hgb Hct RDW Plt Count PT INR APTT Chloride 108.7 H Glucose 72 L Calcium 7.6 L Total Creatine Kinase 251 H CK-MB (CK-2) 15.2 H CK-MB (CK-2) Rel Index 6.0 H Troponin T 0.151 H* NT-Pro-B Natriuret Pep 4673 H Total Protein 4.9 L Albumin 1.6 L LDL Cholesterol Direct HDL Cholesterol Urine WBC (Auto) Crossmatch See Detail 03/12/17 03/12/17 03/12/17 05:51 10:45 10:45 RBC Hgb 7.4 L 8.5 L Hct 22.4 L 26.3 L RDW Plt Count PT INR APTT Chloride Glucose Calcium Total Creatine Kinase 238 H CK-MB (CK-2) 12.7 H CK-MB (CK-2) Rel Index 5.3 H Troponin T 0.153 H* NT-Pro-B Natriuret Pep Total Protein Albumin LDL Cholesterol Direct HDL Cholesterol Urine WBC (Auto) Crossmatch 03/12/17 03/12/17 13:40 Unknown RBC Hgb 8.2 L Hct 24.5 L RDW Plt Count PT INR APTT Chloride Glucose Calcium Total Creatine Kinase 272 H CK-MB (CK-2) 16.4 H CK-MB (CK-2) Rel Index 6.0 H Troponin T 0.165 H* NT-Pro-B Natriuret Pep Total Protein Albumin LDL Cholesterol Direct 26 L HDL Cholesterol 34 L Urine WBC (Auto) Crossmatch - Diagnostic Findings Chest x-ray: report reviewed (no acute finding) Assessment and Plan Impression: Attention most likely hypovolemia Lower GI bleeding possibly compounded by use of anticoagulants. 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 Maintain M AP more than 65 Critical care time 36 minutes
--- NOTE | 2017-03-12 18:48 | XRay Report ---
FINAL REPORT PROCEDURE: XR ABDOMEN 1V AP TECHNIQUE: Abdominal radiograph, single supine AP view. HISTORY: Dobhoff placement. Comparison Chest radiograph dated 03/12/2017. FINDINGS: Bowel gas pattern:Diffusely moderately dilated loops of bowel, small and large bowel. Masses or calcifications:None. Bony structures:Mild osteopenia and degenerative change. Other:Patient is significantly rotated limiting evaluation. Dual-chamber pacer. Central venous catheter, incompletely visualized. Clips in the upper abdomen. Caval filter. Enteric tube tip overlies the mid abdomen. Mild bibasilar pulmonary opacities. IMPRESSION: Enteric tube tip overlies mid abdomen, likely in air-filled distended stomach but patient is significantly rotated limiting evaluation. Recommend attention on repeat radiograph if there is continued clinical concern. Diffusely moderately dilated loops of bowel, small and large bowel. Consider ileus. Cannot exclude obstruction. Consider attention on followup examination. Mild bibasilar opacities, consider atelectasis.
[2017-03-12] MEDS: SENOKOT S PO SCH (21:58)
[2017-03-13] MEDS: D5/0.45NS 1,000 ML IV SCH (03:00)
--- NOTE | 2017-03-13 04:05 | XRay Report ---
FINAL REPORT EXAM: XR ABDOMEN 1V AP HISTORY: dobhoff placement TECHNIQUE: An AP view of the upper abdomen was obtained. FINDINGS: The tip of the Dobhoff tube is in the expected position of the antrum of the stomach. The bowel gas pattern is nondiagnostic. There is a filter in the expected position of the IVC with the apex at the L2-3 level. The lung bases do not show any infiltrates. IMPRESSION: Tip of the Dobhoff tube in the expected position of the antrum of the stomach.
[2017-03-13] MEDS: FLAGYL 500 MG/100 ML 500 MG/100 ML BAG IV SCH ×3 (04:30→20:29)
[2017-03-13 06:17] LABS: Eosinophils % (Auto) 0.1 % (0.0-4.3); Hematocrit 23.2 % (35.5-45.6); Hemoglobin 7.8 gm/dl (11.8-15.2); Lymphocytes # (Auto) 0.8 K/mm3 (1.2-5.4); Lymphocytes % (Auto) 6.7 % (13.4-35.0); Mean Corpuscular HGB Conc 34 % (32-34); Mean Corpuscular Hemoglobin 31 pg (28-32); Mean Corpuscular Volume 91 fl (84-94); Monocytes # (Auto) 0.9 K/mm3 (0.0-0.8); Monocytes % (Auto) 7.2 % (0.0-7.3); Platelet Count 112 K/mm3 (140-440); Red Blood Count 2.57 M/mm3 (3.65-5.03); Red Cell Distribution Width 16.7 % (13.2-15.2)
[2017-03-13 06:34] LABS: BUN/Creatinine Ratio 14; Blood Urea Nitrogen 18 mg/dL (9-20); Calcium 7.4 mg/dL (8.4-10.2); Hemolysis Index 3
[2017-03-13] MEDS: LEVAQUIN 750MG/150ML 750 MG/150 ML BAG IV SCH (08:19)
--- NOTE | 2017-03-13 09:46 | Progress Note ---
Assessment and Plan 1. GI bleed workup as per primary team 2. Nonspecific elevated troponin in the setting of GI bleed with a known underlying history 3. Hypotension likely secondary to GI bleed and dehydration 4. Advanced dementia with poor verbal status 5. History of atrial fibrillation currently in sinus rhythm 6. Presence of defibrillator likely for cardiomyopathy Plan No workup for elevated troponin Extremely conservative care Poor prognosis Family leaning towards DNR/DNI Subjective Date of service: 03/13/17 Principal diagnosis: GI bleed Interval history: Patient looks much better today Objective Vital Signs Temp Pulse Pulse Resp BP Pulse Ox 03/13/17 09:20 73 19 90/66 97 03/13/17 09:10 70 11 L 100/67 99 03/13/17 09:00 70 10 L 91/66 95 03/13/17 08:50 70 16 88/68 99 03/13/17 08:40 78 17 100/67 97 03/13/17 08:30 73 20 100/67 99 03/13/17 08:20 65 16 99/70 100 03/13/17 08:16 98 03/13/17 08:10 67 15 96/75 100 03/13/17 08:00 72 19 105/81 99 03/13/17 07:50 80 14 105/81 99 03/13/17 07:40 70 21 105/76 97 03/13/17 07:30 68 12 105/76 100 03/13/17 07:20 74 21 105/76 100 03/13/17 07:10 69 10 L 104/74 99 03/13/17 07:00 70 13 104/73 97 03/13/17 06:50 73 17 103/77 98 03/13/17 06:40 74 15 104/74 98 03/13/17 06:30 71 13 104/74 98 03/13/17 06:20 71 9 L 105/74 98 03/13/17 06:10 71 12 98/77 98 03/13/17 06:00 73 10 L 98/77 99 03/13/17 05:50 69 18 105/71 99 03/13/17 05:40 72 16 96/70 98 03/13/17 05:30 73 14 102/72 99 03/13/17 05:20 69 13 102/72 98 03/13/17 05:10 70 13 97/66 99 03/13/17 05:00 75 9 L 107/74 99 03/13/17 04:50 77 8 L 107/74 99 03/13/17 04:40 74 13 102/66 98 03/13/17 04:30 76 8 L 105/74 98 03/13/17 04:20 74 10 L 105/74 85 03/13/17 04:10 76 14 96/64 92 03/13/17 04:00 73 11 L 86/61 84 03/13/17 03:50 78 11 L 86/63 89 03/13/17 03:40 80 8 L 89/58 81 L 03/13/17 03:34 99.3 F 03/13/17 03:30 84 11 L 96/64 03/13/17 03:20 84 12 89/58 81 L 03/13/17 03:10 103/62 66 L 03/13/17 03:00 103/62 100 03/13/17 02:50 90 13 113/77 88 03/13/17 02:40 80 22 140/95 99 03/13/17 02:30 100 H 15 116/81 81 L 03/13/17 02:20 84 27 H 116/81 100 03/13/17 02:10 79 21 113/78 98 03/13/17 02:00 78 21 113/81 99 03/13/17 01:50 79 21 107/75 97 03/13/17 01:40 81 24 113/81 98 03/13/17 01:30 75 16 111/79 97 03/13/17 01:20 80 19 108/80 98 03/13/17 01:10 85 19 112/78 99 03/13/17 01:00 75 16 111/79 98 03/13/17 00:50 83 15 111/79 96 03/13/17 00:40 85 11 L 103/79 89 03/13/17 00:30 80 18 103/79 99 03/13/17 00:20 78 22 106/78 98 03/13/17 00:10 78 19 111/85 98 03/13/17 00:00 97.8 F 79 21 105/74 98 03/12/17 23:50 77 16 107/78 97 03/12/17 23:48 75 15 107/78 98 03/12/17 23:40 78 15 105/74 98 03/12/17 23:33 82 20 105/74 98 03/12/17 23:30 76 13 116/77 98 03/12/17 23:20 80 22 116/77 99 03/12/17 23:10 79 14 110/88 98 03/12/17 23:00 85 18 107/56 98 03/12/17 22:50 80 21 107/56 94 03/12/17 22:40 76 16 103/66 98 03/12/17 22:30 77 16 105/78 98 03/12/17 22:20 73 14 113/83 96 03/12/17 22:10 84 12 107/79 96 03/12/17 22:00 77 16 102/69 97 03/12/17 21:50 70 13 105/78 03/12/17 21:40 72 14 100/61 99 03/12/17 21:30 79 12 102/69 99 03/12/17 21:20 72 14 102/69 99 03/12/17 21:10 74 15 97/59 100 03/12/17 21:00 79 17 92/70 97 03/12/17 20:50 76 12 92/70 98 03/12/17 20:40 83 11 L 99/71 100 03/12/17 20:30 87 12 111/76 99 03/12/17 20:20 89 21 111/76 99 03/12/17 20:10 89 13 107/65 98 03/12/17 20:03 97 03/12/17 20:00 84 15 108/65 98 03/12/17 19:57 98.8 F 03/12/17 19:50 83 16 108/65 98 03/12/17 19:40 85 22 112/80 98 03/12/17 19:30 84 14 105/77 97 03/12/17 19:20 85 11 L 105/77 98 03/12/17 19:10 83 15 105/75 99 03/12/17 19:00 84 15 105/75 98 03/12/17 18:50 81 14 100/71 97 03/12/17 18:40 82 16 100/71 99 03/12/17 18:30 82 10 L 103/68 98 03/12/17 18:20 80 14 103/68 99 03/12/17 18:10 77 14 98/63 97 03/12/17 18:00 81 18 98/63 98 03/12/17 17:50 83 18 98/63 96 03/12/17 17:40 82 15 107/72 97 03/12/17 17:30 82 14 101/67 98 03/12/17 17:20 83 13 101/67 97 03/12/17 17:10 81 17 97 03/12/17 17:00 88 16 97/62 97 03/12/17 16:51 82 15 97/62 97 03/12/17 16:41 81 11 L 87/64 97 03/12/17 16:30 82 14 87/64 96 03/12/17 16:21 83 14 95/70 99 03/12/17 16:11 87 20 98/67 98 03/12/17 16:01 82 14 98/67 97 03/12/17 16:00 98.7 F 03/12/17 15:51 85 14 98/67 97 03/12/17 15:41 82 17 98/67 99 03/12/17 15:30 85 16 98/67 97 03/12/17 15:21 88 18 103/66 98 03/12/17 15:11 90 23 93/60 98 03/12/17 15:01 81 15 90/60 97 03/12/17 15:00 18 97 03/12/17 14:51 83 14 90/60 99 03/12/17 14:41 86 14 95/57 98 03/12/17 14:31 91 H 21 95/57 99 03/12/17 14:21 89 19 99/73 98 03/12/17 14:11 87 19 97/67 98 03/12/17 14:00 89 12 97/67 98 03/12/17 13:51 85 14 91/59 98 03/12/17 13:41 89 14 101/67 98 03/12/17 13:30 85 15 101/67 97 03/12/17 13:21 86 18 94/67 99 03/12/17 13:10 86 16 91/60 98 03/12/17 13:01 90 15 91/60 97 03/12/17 12:51 88 15 91/62 97 03/12/17 12:41 86 17 100/59 97 03/12/17 12:31 88 18 100/59 98 03/12/17 12:21 91 H 17 89/53 99 03/12/17 12:11 90 21 110/68 97 03/12/17 12:01 88 14 109/72 97 03/12/17 12:00 97.6 F 03/12/17 11:51 85 18 109/72 99 03/12/17 11:41 84 13 98/68 98 03/12/17 11:31 87 16 98/68 97 03/12/17 11:21 84 17 98/68 97 03/12/17 11:11 86 18 108/72 97 03/12/17 11:01 86 15 105/71 97 03/12/17 11:00 94 H 18 97 03/12/17 10:51 88 18 105/71 97 03/12/17 10:41 90 14 97 03/12/17 10:37 89 20 98 03/12/17 10:00 87 14 130/83 96 03/12/17 09:51 87 15 116/81 94 - Physical Examination Narrative exam: Vitals reviewed GEN: No acute distress noted HEENT: Carotids 2+ NECK: Supple CVS: S1 and S2 heard no significant murmur or gallop noted LUNGS/CHEST: Normal auscultation ABD: Soft nontender Extremities: Contracted with 1-2+ edema fever pulses NEURO: Alert moves all all 4 extremities - Labs and Meds Cardiac Enzymes 03/12/17 Range/Units 10:45 CK-MB (CK-2) 12.7 H (0.0-4.0) ng/mL CBC 03/12/17 03/12/17 03/13/17 Range/Units 10:45 13:40 04:00 WBC 12.1 H (4.5-11.0) K/mm3 RBC 2.57 L (3.65-5.03) M/mm3 Hgb 8.5 L 8.2 L 7.8 L (11.8-15.2) gm/dl Hct 26.3 L 24.5 L 23.2 L (35.5-45.6) % Plt Count 112 L (140-440) K/mm3 Lymph # 0.8 L (1.2-5.4) K/mm3 [place] # 0.9 H (0.0-0.8) K/mm3 Eos # 0.0 (0.0-0.4) K/mm3 Baso # 0.0 (0.0-0.1) K/mm3 Comprehensive Metabolic Panel 03/13/17 Range/Units 04:00 Sodium 145 (137-145) mmol/L Potassium 4.4 (3.6-5.0) mmol/L Chloride 108.1 H (98-107) mmol/L Carbon Dioxide 24 (22-30) mmol/L BUN 18 (9-20) mg/dL Creatinine 1.3 (0.8-1.5) mg/dL Glucose 158 H (75-100) mg/dL Calcium 7.4 L (8.4-10.2) mg/dL
[2017-03-13] MEDS: LEVOPHED 8 MG in NACL 0.9% 250ML 242 ML IV SCH (10:46)
--- NOTE | 2017-03-13 11:39 | Gastroenterology Progress Note ---
Assessment and Plan - Patient Problems (1) Fecal impaction in rectum Current Visit: Yes Status: Acute Plan to address problem: - Will continue daily sennakot. - Enemas/manual disimpaction if needed. - Likely exacerbating recent rectal bleeding (per sister, hemorrhoids at colonoscopy [facility] [facility] a couple of months ago). (2) GI bleed Current Visit: Yes Status: Acute Plan to address problem: - Per sister, progressive anemia for the last 6 months with (-) colonoscopy ( and ?EGD) at [facility] [facility] earlier this year. - Patient has required multiple PRBC transfusions at his various hospitalizations, but never had severe/gross bleeding, only trace/smears of blood with BMs. - No prior Hematology workup per family. - Patient is on prison coumadin therapy, but will hold this for now as he appears intolerant. I am OK with DVT PPY at this point since no severe bleeding and the patient is high risk. - Long d/w the sister about goals of care given multiple hospitalizations, progression to fpc, etc; per her, she and the patient's son have thought recently that the patient is "tired" and does not want any further invasive testing done. They do not want intubations, dialysis, chest compressions, etc, although there is no formal Living Will/POA for health care. From my interaction, it appears the family is wishing for comfort measures/ palliative care only at this point, though they will need to discuss further. Will continue to monitor at present. Subjective Date of service: 03/13/17 Principal diagnosis: GI bleed Interval history: The patient had one stool last night with some BRB, but none today. He has passed a speech eval, and is tolerating sips of liquids. He denies any abdominal pain, nausea, or vomiting. He answers questions somewhat appropriately but is not oriented to place or time. Objective - Constitutional Vitals: Temp Pulse Resp BP Pulse Ox 99.3 F 73 19 90/66 97 03/13/17 03:34 03/13/17 09:20 03/13/17 09:20 03/13/17 09:20 03/13/17 09:20 General appearance: no acute distress - Respiratory Respiratory effort: normal Respiratory: bilateral: CTA - Cardiovascular Rhythm: regular Heart Sounds: Present: S1 & S2 - Gastrointestinal General gastrointestinal: Present: soft, non-tender, non-distended - Labs CBC & Chem 7: 03/13/17 04:00 03/13/17 04:00 Labs: Laboratory Results - last 24 hr 03/11/17 03/12/17 03/12/17 22:59 10:45 12:16 WBC RBC Hgb Hct MCV MCH MCHC RDW Plt Count Lymph % (Auto) [place] % (Auto) Eos % (Auto) Baso % (Auto) Lymph # [place] # Eos # Baso # Seg Neutrophils % Seg Neutrophils # Sodium Potassium Chloride Carbon Dioxide Anion Gap BUN Creatinine Estimated GFR BUN/Creatinine Ratio Glucose POC Glucose 71 Calcium Total Creatine Kinase 238 H CK-MB (CK-2) 12.7 H CK-MB (CK-2) Rel Index 5.3 H Troponin T 0.153 H* Blood Type O POSITIVE Antibody Screen Negative Crossmatch See Detail 03/12/17 03/12/17 03/12/17 13:40 17:17 23:24 WBC RBC Hgb 8.2 L Hct 24.5 L MCV MCH MCHC RDW Plt Count Lymph % (Auto) [place] % (Auto) Eos % (Auto) Baso % (Auto) Lymph # [place] # Eos # Baso # Seg Neutrophils % Seg Neutrophils # Sodium Potassium Chloride Carbon Dioxide Anion Gap BUN Creatinine Estimated GFR BUN/Creatinine Ratio Glucose POC Glucose 102 154 H Calcium Total Creatine Kinase CK-MB (CK-2) CK-MB (CK-2) Rel Index Troponin T Blood Type Antibody Screen Crossmatch 03/13/17 03/13/17 03/13/17 04:00 04:00 05:06 WBC 12.1 H RBC 2.57 L Hgb 7.8 L Hct 23.2 L MCV 91 MCH 31 MCHC 34 RDW 16.7 H Plt Count 112 L Lymph % (Auto) 6.7 L [place] % (Auto) 7.2 Eos % (Auto) 0.1 Baso % (Auto) 0.0 Lymph # 0.8 L [place] # 0.9 H Eos # 0.0 Baso # 0.0 Seg Neutrophils % 86.0 H Seg Neutrophils # 10.4 H Sodium 145 Potassium 4.4 Chloride 108.1 H Carbon Dioxide 24 Anion Gap 17 BUN 18 Creatinine 1.3 Estimated GFR > 60 BUN/Creatinine Ratio 14 Glucose 158 H POC Glucose 161 H Calcium 7.4 L Total Creatine Kinase CK-MB (CK-2) CK-MB (CK-2) Rel Index Troponin T Blood Type Antibody Screen Crossmatch
[2017-03-13] MEDS: NACL 0.9% 1000 ML 1,000 ML IV SCH ×2 (11:57→23:42)
[2017-03-13] MEDS: NOVOLOG SUB-Q SCH ×3 (13:09→21:48)
[2017-03-13] MEDS: THERAGRAN-M Tab PO SCH (13:10)
--- NOTE | 2017-03-13 13:58 | Progress Note ---
Assessment and Plan Impression: Attention most likely hypovolemia Lower GI bleeding possibly compounded by use of anticoagulants. 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 Maintain M AP more than 65 Critical care time 36 minutes Subjective Date of service: 03/13/17 Principal diagnosis: GI bleed Interval history: Patient feeling much better still on levophed Objective Vital Signs - 12hr 03/13/17 03/13/17 03/13/17 02:00 02:10 02:20 Temperature Pulse Rate 78 79 84 Respiratory 21 21 27 H Rate Blood Pressure 113/81 113/78 116/81 O2 Sat by Pulse 99 98 100 Oximetry 03/13/17 03/13/17 03/13/17 02:30 02:40 02:50 Temperature Pulse Rate 100 H 80 90 Respiratory 15 22 13 Rate Blood Pressure 116/81 140/95 113/77 O2 Sat by Pulse 81 L 99 88 Oximetry 03/13/17 03/13/17 03/13/17 03:00 03:10 03:20 Temperature Pulse Rate 84 Respiratory 12 Rate Blood Pressure 103/62 103/62 89/58 O2 Sat by Pulse 100 66 L 81 L Oximetry 03/13/17 03/13/17 03/13/17 03:30 03:34 03:40 Temperature 99.3 F Pulse Rate 84 80 Respiratory 11 L 8 L Rate Blood Pressure 96/64 89/58 O2 Sat by Pulse 81 L Oximetry 03/13/17 03/13/17 03/13/17 03:50 04:00 04:10 Temperature Pulse Rate 78 73 76 Respiratory 11 L 11 L 14 Rate Blood Pressure 86/63 86/61 96/64 O2 Sat by Pulse 89 84 92 Oximetry 03/13/17 03/13/17 03/13/17 04:20 04:30 04:40 Temperature Pulse Rate 74 76 74 Respiratory 10 L 8 L 13 Rate Blood Pressure 105/74 105/74 102/66 O2 Sat by Pulse 85 98 98 Oximetry 03/13/17 03/13/17 03/13/17 04:50 05:00 05:10 Temperature Pulse Rate 77 75 70 Respiratory 8 L 9 L 13 Rate Blood Pressure 107/74 107/74 97/66 O2 Sat by Pulse 99 99 99 Oximetry 12/03/13/17 03/13/17 05:20 05:30 05:40 Temperature Pulse Rate 69 73 72 Respiratory 13 14 16 Rate Blood Pressure 102/72 102/72 96/70 O2 Sat by Pulse 98 99 98 Oximetry 03/13/17 03/13/17 03/13/17 05:50 06:00 06:10 Temperature Pulse Rate 69 73 71 Respiratory 18 10 L 12 Rate Blood Pressure 105/71 98/77 98/77 O2 Sat by Pulse 99 99 98 Oximetry 03/13/17 03/13/17 03/13/17 06:20 06:30 06:40 Temperature Pulse Rate 71 71 74 Respiratory 9 L 13 15 Rate Blood Pressure 105/74 104/74 104/74 O2 Sat by Pulse 98 98 98 Oximetry 03/13/17 03/13/17 03/13/17 06:50 07:00 07:10 Temperature Pulse Rate 73 70 69 Respiratory 17 13 10 L Rate Blood Pressure 103/77 104/73 104/74 O2 Sat by Pulse 98 97 99 Oximetry 03/13/17 03/13/17 03/13/17 07:20 07:30 07:40 Temperature Pulse Rate 74 68 70 Respiratory 21 12 21 Rate Blood Pressure 105/76 105/76 105/76 O2 Sat by Pulse 100 100 97 Oximetry 03/13/17 03/13/17 03/13/17 07:50 08:00 08:10 Temperature Pulse Rate 80 72 67 Respiratory 14 19 15 Rate Blood Pressure 105/81 105/81 96/75 O2 Sat by Pulse 99 99 100 Oximetry 03/13/17 03/13/17 03/13/17 08:16 08:20 08:30 Temperature Pulse Rate 65 73 Respiratory 16 20 Rate Blood Pressure 99/70 100/67 O2 Sat by Pulse 98 100 99 Oximetry 03/13/17 03/13/17 03/13/17 08:40 08:50 09:00 Temperature Pulse Rate 78 70 70 Respiratory 17 16 10 L Rate Blood Pressure 100/67 88/68 91/66 O2 Sat by Pulse 97 99 95 Oximetry 03/13/17 03/13/17 03/13/17 09:10 09:20 09:30 Temperature Pulse Rate 70 73 77 Respiratory 11 L 19 15 Rate Blood Pressure 100/67 90/66 94/66 O2 Sat by Pulse 99 97 98 Oximetry 03/13/17 03/13/17 03/13/17 09:40 09:50 10:00 Temperature Pulse Rate 68 71 72 Respiratory 9 L 11 L 15 Rate Blood Pressure 94/66 93/74 88/61 O2 Sat by Pulse 100 99 97 Oximetry 03/13/17 03/13/17 03/13/17 10:10 10:20 10:30 Temperature Pulse Rate 76 71 69 Respiratory 13 16 13 Rate Blood Pressure 88/61 91/66 84/59 O2 Sat by Pulse 96 98 96 Oximetry 03/13/17 03/13/17 03/13/17 10:40 10:50 11:00 Temperature Pulse Rate 70 73 72 Respiratory 12 14 14 Rate Blood Pressure 84/59 93/63 93/63 O2 Sat by Pulse 96 98 99 Oximetry 03/13/17 03/13/17 03/13/17 11:10 11:20 11:30 Temperature Pulse Rate 72 71 76 Respiratory 14 11 L 9 L Rate Blood Pressure 93/63 94/63 92/64 O2 Sat by Pulse 98 98 97 Oximetry 03/13/17 03/13/17 03/13/17 11:40 11:50 12:00 Temperature Pulse Rate 76 73 73 Respiratory 19 9 L 15 Rate Blood Pressure 92/64 93/66 91/67 O2 Sat by Pulse 97 98 96 Oximetry 03/13/17 03/13/17 03/13/17 12:10 12:20 12:30 Temperature Pulse Rate 79 81 78 Respiratory 12 10 L 18 Rate Blood Pressure 91/67 86/62 86/62 O2 Sat by Pulse 97 97 97 Oximetry 03/13/17 03/13/17 03/13/17 12:40 12:50 13:00 Temperature Pulse Rate 85 79 80 Respiratory 12 16 12 Rate Blood Pressure 90/63 87/55 92/63 O2 Sat by Pulse 98 97 99 Oximetry Constitutional: no acute distress, alert Eyes: non-icteric ENT: oropharynx dry Neck: other (rigid in all directions) Effort: normal Ascultation: Bilateral: clear Cardiovascular: irregular rhythm (atrial fibrillation) Integumentary: decubitus ulcer, other Extremities: other (contracture deformities of upper and lower extremities) CBC and BMP: 03/13/17 04:00 03/13/17 04:00 ABG, PT/INR, D-dimer: PT/INR, D-dimer PT 22.3 Sec. (12.2-14.9) H 03/11/17 22:59 INR 1.84 (0.87-1.13) H 03/11/17 22:59 Abnormal lab findings: Abnormal Labs 03/11/17 03/11/17 03/11/17 00:10 22:59 22:59 WBC RBC 2.40 L Hgb 7.2 L Hct 22.1 L RDW 18.0 H Plt Count 104 L Lymph % (Auto) Lymph # [place] # Seg Neutrophils % Seg Neutrophils # PT 22.3 H INR 1.84 H APTT 52.8 H Chloride Glucose POC Glucose Calcium Total Creatine Kinase CK-MB (CK-2) CK-MB (CK-2) Rel Index Troponin T NT-Pro-B Natriuret Pep Total Protein Albumin LDL Cholesterol Direct HDL Cholesterol Urine WBC (Auto) 142.0 H Crossmatch 03/11/17 03/11/17 03/12/17 22:59 22:59 05:51 WBC RBC Hgb Hct RDW Plt Count Lymph % (Auto) Lymph # [place] # Seg Neutrophils % Seg Neutrophils # PT INR APTT Chloride 108.7 H Glucose 72 L POC Glucose Calcium 7.6 L Total Creatine Kinase 251 H CK-MB (CK-2) 15.2 H CK-MB (CK-2) Rel Index 6.0 H Troponin T 0.151 H* NT-Pro-B Natriuret Pep 4673 H Total Protein 4.9 L Albumin 1.6 L LDL Cholesterol Direct HDL Cholesterol Urine WBC (Auto) Crossmatch See Detail 03/12/17 03/12/17 03/12/17 05:51 10:45 10:45 WBC RBC Hgb 7.4 L 8.5 L Hct 22.4 L 26.3 L RDW Plt Count Lymph % (Auto) Lymph # [place] # Seg Neutrophils % Seg Neutrophils # PT INR APTT Chloride Glucose POC Glucose Calcium Total Creatine Kinase 238 H CK-MB (CK-2) 12.7 H CK-MB (CK-2) Rel Index 5.3 H Troponin T 0.153 H* NT-Pro-B Natriuret Pep Total Protein Albumin LDL Cholesterol Direct HDL Cholesterol Urine WBC (Auto) Crossmatch 03/12/17 03/12/17 03/12/17 13:40 23:24 Unknown WBC RBC Hgb 8.2 L Hct 24.5 L RDW Plt Count Lymph % (Auto) Lymph # [place] # Seg Neutrophils % Seg Neutrophils # PT INR APTT Chloride Glucose POC Glucose 154 H Calcium Total Creatine Kinase 272 H CK-MB (CK-2) 16.4 H CK-MB (CK-2) Rel Index 6.0 H Troponin T 0.165 H* NT-Pro-B Natriuret Pep Total Protein Albumin LDL Cholesterol Direct 26 L HDL Cholesterol 34 L Urine WBC (Auto) Crossmatch 03/13/17 03/13/17 03/13/17 04:00 04:00 05:06 WBC 12.1 H RBC 2.57 L Hgb 7.8 L Hct 23.2 L RDW 16.7 H Plt Count 112 L Lymph % (Auto) 6.7 L Lymph # 0.8 L [place] # 0.9 H Seg Neutrophils % 86.0 H Seg Neutrophils # 10.4 H PT INR APTT Chloride 108.1 H Glucose 158 H POC Glucose 161 H Calcium 7.4 L Total Creatine Kinase CK-MB (CK-2) CK-MB (CK-2) Rel Index Troponin T NT-Pro-B Natriuret Pep Total Protein Albumin LDL Cholesterol Direct HDL Cholesterol Urine WBC (Auto) Crossmatch 03/13/17 11:52 WBC RBC Hgb Hct RDW Plt Count Lymph % (Auto) Lymph # [place] # Seg Neutrophils % Seg Neutrophils # PT INR APTT Chloride Glucose POC Glucose 206 H Calcium Total Creatine Kinase CK-MB (CK-2) CK-MB (CK-2) Rel Index Troponin T NT-Pro-B Natriuret Pep Total Protein Albumin LDL Cholesterol Direct HDL Cholesterol Urine WBC (Auto) Crossmatch
--- NOTE | 2017-03-13 15:28 | Progress Note ---
Assessment and Plan Hypotension: Resolved .Likely 2/2 volume depletion. We will change the IV fluids to normal saline Hold beta blockers for now Hypothermia: Patient on heating blanket Suspected c. DIFF COLITIS: Continue Levaquin and Flagyl GI bleed: Likely lower GI bleed; GI note reviewed and appreciated Monitor H&H No plans for endoscopy at this time Continue PPI Dementia: Supportive care Sacral and heel decubiti: Wound care consult Subjective Date of service: 03/13/17 Principal diagnosis: GI bleed Interval history: Patient seen and examined Discussed with nursing staff All interdisciplinary notes reviewed Labs reviewed Patient is awake and alert. Poor historian He denies any pain Objective - Constitutional Vitals: Vital Signs - 12hr 03/13/17 03/13/17 03/13/17 03:30 03:34 03:40 Temperature 99.3 F Pulse Rate 84 80 Respiratory 11 L 8 L Rate Blood Pressure 96/64 89/58 O2 Sat by Pulse 81 L Oximetry 03/13/17 03/13/17 03/13/17 03:50 04:00 04:10 Temperature Pulse Rate 78 73 76 Respiratory 11 L 11 L 14 Rate Blood Pressure 86/63 86/61 96/64 O2 Sat by Pulse 89 84 92 Oximetry 03/13/17 03/13/17 03/13/17 04:20 04:30 04:40 Temperature Pulse Rate 74 76 74 Respiratory 10 L 8 L 13 Rate Blood Pressure 105/74 105/74 102/66 O2 Sat by Pulse 85 98 98 Oximetry 03/13/17 03/13/17 03/13/17 04:50 05:00 05:10 Temperature Pulse Rate 77 75 70 Respiratory 8 L 9 L 13 Rate Blood Pressure 107/74 107/74 97/66 O2 Sat by Pulse 99 99 99 Oximetry 03/13/17 03/13/17 03/13/17 05:20 05:30 05:40 Temperature Pulse Rate 69 73 72 Respiratory 13 14 16 Rate Blood Pressure 102/72 102/72 96/70 O2 Sat by Pulse 98 99 98 Oximetry 03/13/17 03/13/17 03/13/17 05:50 06:00 06:10 Temperature Pulse Rate 69 73 71 Respiratory 18 10 L 12 Rate Blood Pressure 105/71 98/77 98/77 O2 Sat by Pulse 99 99 98 Oximetry 03/13/17 03/13/17 03/13/17 06:20 06:30 06:40 Temperature Pulse Rate 71 71 74 Respiratory 9 L 13 15 Rate Blood Pressure 105/74 104/74 104/74 O2 Sat by Pulse 98 98 98 Oximetry 03/13/17 03/13/17 03/13/17 06:50 07:00 07:10 Temperature Pulse Rate 73 70 69 Respiratory 17 13 10 L Rate Blood Pressure 103/77 104/73 104/74 O2 Sat by Pulse 98 97 99 Oximetry 03/13/17 03/13/17 03/13/17 07:20 07:30 07:40 Temperature Pulse Rate 74 68 70 Respiratory 21 12 21 Rate Blood Pressure 105/76 105/76 105/76 O2 Sat by Pulse 100 100 97 Oximetry 03/13/17 03/13/17 03/13/17 07:50 08:00 08:10 Temperature Pulse Rate 80 72 67 Respiratory 14 19 15 Rate Blood Pressure 105/81 105/81 96/75 O2 Sat by Pulse 99 99 100 Oximetry 03/13/17 03/13/17 03/13/17 08:16 08:20 08:30 Temperature Pulse Rate 65 73 Respiratory 16 20 Rate Blood Pressure 99/70 100/67 O2 Sat by Pulse 98 100 99 Oximetry 03/13/17 03/13/17 03/13/17 08:40 08:50 09:00 Temperature Pulse Rate 78 70 70 Respiratory 17 16 10 L Rate Blood Pressure 100/67 88/68 91/66 O2 Sat by Pulse 97 99 95 Oximetry 03/13/17 03/13/17 03/13/17 09:10 09:20 09:30 Temperature Pulse Rate 70 73 77 Respiratory 11 L 19 15 Rate Blood Pressure 100/67 90/66 94/66 O2 Sat by Pulse 99 97 98 Oximetry 03/13/17 03/13/17 03/13/17 09:40 09:50 10:00 Temperature Pulse Rate 68 71 72 Respiratory 9 L 11 L 15 Rate Blood Pressure 94/66 93/74 88/61 O2 Sat by Pulse 100 99 97 Oximetry 03/13/17 03/13/17 03/13/17 10:10 10:20 10:30 Temperature Pulse Rate 76 71 69 Respiratory 13 16 13 Rate Blood Pressure 88/61 91/66 84/59 O2 Sat by Pulse 96 98 96 Oximetry 03/13/17 03/13/17 03/13/17 10:40 10:50 11:00 Temperature Pulse Rate 70 73 72 Respiratory 12 14 14 Rate Blood Pressure 84/59 93/63 93/63 O2 Sat by Pulse 96 98 99 Oximetry 03/13/17 03/13/17 03/13/17 11:10 11:20 11:30 Temperature Pulse Rate 72 71 76 Respiratory 14 11 L 9 L Rate Blood Pressure 93/63 94/63 92/64 O2 Sat by Pulse 98 98 97 Oximetry 03/13/17 03/13/17 03/13/17 11:40 11:50 12:00 Temperature Pulse Rate 76 73 73 Respiratory 19 9 L 18 Rate Blood Pressure 92/64 93/66 91/67 O2 Sat by Pulse 97 98 97 Oximetry 03/13/17 03/13/17 03/13/17 12:10 12:20 12:30 Temperature Pulse Rate 79 81 78 Respiratory 12 10 L 18 Rate Blood Pressure 91/67 86/62 86/62 O2 Sat by Pulse 97 97 97 Oximetry 03/13/17 03/13/17 03/13/17 12:40 12:50 13:00 Temperature Pulse Rate 85 79 80 Respiratory 12 16 12 Rate Blood Pressure 90/63 87/55 92/63 O2 Sat by Pulse 98 97 99 Oximetry 03/13/17 03/13/17 03/13/17 13:10 13:20 13:30 Temperature Pulse Rate 79 81 84 Respiratory 12 14 9 L Rate Blood Pressure 92/63 100/71 93/65 O2 Sat by Pulse 96 98 97 Oximetry 03/13/17 03/13/17 03/13/17 13:40 13:50 14:00 Temperature Pulse Rate 85 82 84 Respiratory 23 20 21 Rate Blood Pressure 93/65 93/65 93/65 O2 Sat by Pulse 98 97 97 Oximetry 03/13/17 14:10 Temperature Pulse Rate 88 Respiratory 20 Rate Blood Pressure 103/68 O2 Sat by Pulse 98 Oximetry General appearance: Present: no acute distress - EENT Eyes: PERRL, EOM intact ENT: hearing intact, clear oral mucosa - Neck Neck: supple, normal ROM, no masses or JVD - Respiratory Respiratory effort: normal Respiratory: bilateral: CTA, diminished - Cardiovascular Rhythm: regular Heart Sounds: Present: S1 & S2, systolic murmur (2/6 systolic murmur at the left sternal border) - Gastrointestinal General gastrointestinal: Present: soft, non-tender. Absent: hepatomegaly, splenomegaly - Neurologic Neurologic: moves all extremities - Labs CBC & Chem 7: 03/13/17 04:00 03/13/17 04:00 Labs: Abnormal lab results 03/11/17 03/12/17 03/13/17 Range/Units 22:59 23:24 04:00 WBC 12.1 H (4.5-11.0) K/mm3 RBC 2.57 L (3.65-5.03) M/mm3 Hgb 7.8 L (11.8-15.2) gm/dl Hct 23.2 L (35.5-45.6) % RDW 16.7 H (13.2-15.2) % Plt Count 112 L (140-440) K/mm3 Lymph % (Auto) 6.7 L (13.4-35.0) % Lymph # 0.8 L (1.2-5.4) K/mm3 [place] # 0.9 H (0.0-0.8) K/mm3 Seg Neutrophils % 86.0 H (40.0-70.0) % Seg Neutrophils # 10.4 H (1.8-7.7) K/mm3 Chloride (98-107) mmol/L Glucose (75-100) mg/dL POC Glucose 154 H (70-105) Calcium (8.4-10.2) mg/dL Crossmatch See Detail 03/13/17 03/13/17 03/13/17 Range/Units 04:00 05:06 11:52 WBC (4.5-11.0) K/mm3 RBC (3.65-5.03) M/mm3 Hgb (11.8-15.2) gm/dl Hct (35.5-45.6) % RDW (13.2-15.2) % Plt Count (140-440) K/mm3 Lymph % (Auto) (13.4-35.0) % Lymph # (1.2-5.4) K/mm3 [place] # (0.0-0.8) K/mm3 Seg Neutrophils % (40.0-70.0) % Seg Neutrophils # (1.8-7.7) K/mm3 Chloride 108.1 H (98-107) mmol/L Glucose 158 H (75-100) mg/dL POC Glucose 161 H 206 H (70-105) Calcium 7.4 L (8.4-10.2) mg/dL Crossmatch
[2017-03-13] MEDS: TYLENOL PO PRN (18:18)
[2017-03-13] MEDS: SENOKOT S PO SCH (21:46)
[2017-03-13] MEDS: HEPARIN SUB-Q SCH (21:46)
[2017-03-14] MEDS: SYNTHROID PO SCH (05:42)
[2017-03-14] MEDS: FLAGYL 500 MG/100 ML 500 MG/100 ML BAG IV SCH ×2 (05:44→11:01)
[2017-03-14 08:29] LABS: Hematocrit 21.3 % (35.5-45.6); Hemoglobin 7.1 gm/dl (11.8-15.2); Mean Corpuscular HGB Conc 33 % (32-34); Mean Corpuscular Hemoglobin 30 pg (28-32); Mean Corpuscular Volume 91 fl (84-94); Platelet Count 105 K/mm3 (140-440); Red Blood Count 2.35 M/mm3 (3.65-5.03); Red Cell Distribution Width 16.8 % (13.2-15.2)
[2017-03-14 08:39] LABS: BUN/Creatinine Ratio 13; Blood Urea Nitrogen 15 mg/dL (9-20); Calcium 7.2 mg/dL (8.4-10.2); Hemolysis Index 8
[2017-03-14] MEDS: LEVAQUIN 750MG/150ML 750 MG/150 ML BAG IV SCH (09:00)
[2017-03-14] MEDS: NOVOLOG SUB-Q SCH ×3 (09:09→16:50)
[2017-03-14] MEDS: THERAGRAN-M Tab PO SCH (09:43)
[2017-03-14] MEDS: HEPARIN SUB-Q SCH ×2 (09:43→21:56)
[2017-03-14] MEDS ORDERED: LEVOTHYROXINE SODIUM 200 MCG PO SCH (10:00)
--- NOTE | 2017-03-14 10:54 | Progress Note ---
Assessment and Plan 1. GI bleed workup as per primary team 2. Nonspecific elevated troponin in the setting of GI bleed with a known underlying history 3. Hypotension likely secondary to GI bleed and dehydration 4. Advanced dementia with poor verbal status 5. History of atrial fibrillation currently in sinus rhythm 6. Presence of defibrillator likely for cardiomyopathy Plan No workup for elevated troponin Extremely conservative care Poor prognosis Family leaning towards DNR/DNI Subjective Date of service: 03/14/17 Principal diagnosis: GI bleed Interval history: Patient looks much better today No significant events overnight Objective Vital Signs Temp Pulse Resp BP Pulse Ox 03/14/17 08:00 98.6 F 03/14/17 07:30 75 13 94/55 92 03/14/17 07:20 84 22 89/60 97 03/14/17 07:10 79 15 101/61 95 03/14/17 07:00 80 8 L 101/61 95 03/14/17 06:50 83 13 93/64 95 03/14/17 06:40 84 14 90/59 98 03/14/17 06:30 77 11 L 90/59 97 03/14/17 06:21 81 20 86/57 96 03/14/17 06:11 79 13 92/60 94 03/14/17 06:00 85 17 92/60 93 03/14/17 05:51 76 15 84/59 95 03/14/17 05:41 77 19 95/62 95 03/14/17 05:30 81 10 L 86/56 95 03/14/17 05:21 82 15 90/63 95 03/14/17 05:11 86 10 L 101/62 94 03/14/17 05:00 86 11 L 95/62 03/14/17 04:50 86 7 L 101/62 95 03/14/17 04:47 14 97 03/14/17 04:40 79 15 97/65 95 03/14/17 04:30 77 16 97/65 95 03/14/17 04:20 78 13 84/51 95 03/14/17 04:10 82 13 79/52 98 03/14/17 04:00 76 14 78/53 95 03/14/17 03:50 77 12 78/53 93 03/14/17 03:40 78 14 96/61 95 03/14/17 03:39 97.6 F 03/14/17 03:30 81 11 L 88/58 96 03/14/17 03:20 85 12 103/59 96 03/14/17 03:10 80 12 96/68 97 03/14/17 03:00 78 14 96/61 96 03/14/17 02:51 79 12 96/68 96 03/14/17 02:41 82 11 L 87/58 96 03/14/17 02:30 76 8 L 87/58 93 03/14/17 02:20 77 13 90/28 95 03/14/17 02:10 76 13 101/73 95 03/14/17 02:00 79 11 L 92/56 94 03/14/17 01:50 80 13 92/56 94 03/14/17 01:40 82 13 85/56 95 03/14/17 01:30 79 13 85/56 94 03/14/17 01:20 86 14 93/60 93 03/14/17 01:10 79 10 L 89/57 92 03/14/17 01:00 79 14 101/57 96 03/14/17 00:50 83 12 100/58 92 03/14/17 00:47 16 98 03/14/17 00:40 77 13 87/51 94 03/14/17 00:30 79 13 89/57 93 03/14/17 00:20 81 13 91/55 97 03/14/17 00:10 76 11 L 87/51 97 03/14/17 00:00 79 8 L 87/51 94 03/13/17 23:50 82 13 96/54 97 03/13/17 23:48 98.7 F 03/13/17 23:44 81 11 L 90/62 95 03/13/17 23:40 77 14 90/62 96 03/13/17 23:30 78 11 L 90/62 95 03/13/17 23:20 81 10 L 96/69 93 03/13/17 23:10 77 9 L 94/63 94 03/13/17 23:00 78 11 L 94/63 94 03/13/17 22:50 77 7 L 98/60 96 03/13/17 22:40 76 8 L 96/66 94 03/13/17 22:30 77 10 L 96/66 96 03/13/17 22:20 78 14 101/64 94 03/13/17 22:10 77 8 L 97/67 93 03/13/17 22:00 88 11 L 97/67 94 03/13/17 21:50 90 25 H 99/68 93 03/13/17 21:40 72 19 89/62 93 03/13/17 21:30 71 12 89/62 93 03/13/17 21:20 79 13 94/65 94 03/13/17 21:10 81 15 87/59 95 03/13/17 21:00 70 21 87/59 93 03/13/17 20:50 73 24 94/63 94 03/13/17 20:40 71 15 102/66 97 03/13/17 20:30 70 12 102/66 97 03/13/17 20:20 71 12 91/59 96 03/13/17 20:10 69 12 104/59 95 03/13/17 20:00 67 15 89/67 95 03/13/17 19:50 68 12 89/67 95 03/13/17 19:41 98.4 F 03/13/17 19:40 68 13 91/63 95 03/13/17 19:30 69 13 91/63 97 03/13/17 19:20 66 16 96/67 95 03/13/17 19:10 71 15 100/67 96 03/13/17 19:00 77 16 91/65 97 03/13/17 18:50 71 16 91/65 97 03/13/17 18:40 78 14 96/71 96 03/13/17 18:30 78 17 96/71 96 03/13/17 18:20 90 19 93/64 98 03/13/17 18:10 82 16 99/70 97 03/13/17 18:00 79 14 99/65 96 03/13/17 17:50 74 13 99/65 98 03/13/17 17:40 78 16 215/44 97 03/13/17 17:30 79 15 89/57 97 03/13/17 17:20 73 18 89/57 97 03/13/17 17:10 81 13 86/58 97 03/13/17 17:00 82 14 83/49 96 03/13/17 16:50 75 18 83/49 95 17 16:40 82 18 103/78 97 03/13/17 16:30 77 17 103/78 94 03/13/17 16:20 77 14 103/78 98 03/13/17 16:10 94 H 21 103/78 98 03/13/17 16:00 96 H 22 103/78 97 03/13/17 15:50 94 H 16 96/74 98 03/13/17 15:40 92 H 20 96/74 99 03/13/17 15:30 91 H 22 98/72 98 03/13/17 15:20 91 H 23 98/72 98 03/13/17 15:10 101 H 21 91/63 98 03/13/17 15:00 90 21 91/63 98 03/13/17 14:50 99 H 19 98/72 99 03/13/17 14:40 90 24 102/72 98 03/13/17 14:30 89 15 103/73 97 03/13/17 14:20 93 H 28 H 103/73 97 03/13/17 14:10 88 20 103/68 98 03/13/17 14:00 84 21 93/65 97 03/13/17 13:50 82 20 93/65 97 03/13/17 13:40 85 23 93/65 98 03/13/17 13:30 84 9 L 93/65 97 03/13/17 13:20 81 14 100/71 98 03/13/17 13:10 79 12 92/63 96 03/13/17 13:00 80 12 92/63 99 03/13/17 12:50 79 16 87/55 97 03/13/17 12:40 85 12 90/63 98 03/13/17 12:30 78 18 86/62 97 03/13/17 12:20 81 10 L 86/62 97 03/13/17 12:10 79 12 91/67 97 03/13/17 12:00 73 18 91/67 97 03/13/17 11:50 73 9 L 93/66 98 03/13/17 11:40 76 19 92/64 97 03/13/17 11:30 76 9 L 92/64 97 03/13/17 11:20 71 11 L 94/63 98 03/13/17 11:10 72 14 93/63 98 03/13/17 11:00 72 14 93/63 99 - Physical Examination Narrative exam: Vitals reviewed GEN: No acute distress noted HEENT: Carotids 2+ NECK: Supple CVS: S1 and S2 heard no significant murmur or gallop noted LUNGS/CHEST: Normal auscultation ABD: Soft nontender Extremities: Contracted with 1-2+ edema fever pulses NEURO: Alert moves all all 4 extremities - Labs and Meds CBC 03/14/17 Range/Units 07:50 WBC 9.8 (4.5-11.0) K/mm3 RBC 2.35 L (3.65-5.03) M/mm3 Hgb 7.1 L (11.8-15.2) gm/dl Hct 21.3 L (35.5-45.6) % Plt Count 105 L (140-440) K/mm3 Comprehensive Metabolic Panel 03/14/17 Range/Units 07:50 Sodium 145 (137-145) mmol/L Potassium 3.7 (3.6-5.0) mmol/L Chloride 110.4 H (98-107) mmol/L Carbon Dioxide 23 (22-30) mmol/L BUN 15 (9-20) mg/dL Creatinine 1.2 (0.8-1.5) mg/dL Glucose 103 H (75-100) mg/dL Calcium 7.2 L (8.4-10.2) mg/dL
[2017-03-14] MEDS: NACL 0.9% 1000 ML 1,000 ML IV SCH ×2 (11:01→21:55)
--- NOTE | 2017-03-14 11:39 | Gastroenterology Progress Note ---
Assessment and Plan - Patient Problems (1) Fecal impaction in rectum Current Visit: Yes Status: Acute Plan to address problem: - Will continue daily sennakot. - Enemas/manual disimpaction if needed (no BM for last 24 hours). - Likely exacerbating recent rectal bleeding (per sister, hemorrhoids at colonoscopy [place] a couple of months ago). (2) GI bleed Current Visit: Yes Status: Acute Plan to address problem: - Per sister, progressive anemia for the last 6 months with (-) colonoscopy ( and ?EGD) at [place] earlier this year. - Patient has required multiple PRBC transfusions at his various hospitalizations, but never had severe/gross bleeding, only trace/smears of blood with BMs. - No prior Hematology workup per family. - Patient is on terminal block assembler coumadin therapy, but will hold this for now as he appears intolerant. I am OK with DVT PPY at this point since no severe bleeding and the patient is high risk. - Long d/w the sister about goals of care given multiple hospitalizations, progression to half-way, etc; per her, she and the patient's son have thought recently that the patient is "tired" and does not want any further invasive testing done. They do not want intubations, dialysis, chest compressions, etc, although there is no formal Living Will/POA for health care. - Will re-attempt to get records from prior hospitalization; if indicated, or unable to find, will need to repeat the procedures given anemia. Will transfuse 1 unit of PRBC today. Subjective Date of service: 03/14/17 Principal diagnosis: GI bleed Interval history: The patient has not had a BM for the last 24 hours, and no hematemesis, melena, or hematochezia. He denies abdominal pain, and is starting to tolerate a regular diet. His brother is in the room, and I reminded him of the need to get old records from [facility], etc of prior endoscopies (sister has not returned with the records yet). Objective - Constitutional Vitals: Temp Pulse Resp BP Pulse Ox 98.6 F 82 13 91/54 96 03/14/17 08:00 03/14/17 11:20 03/14/17 11:20 03/14/17 11:20 03/14/17 11:20 General appearance: no acute distress - EENT ENT: hearing intact - Respiratory Respiratory effort: normal Respiratory: bilateral: CTA - Cardiovascular Rhythm: regular Heart Sounds: Present: S1 & S2 - Gastrointestinal General gastrointestinal: Present: soft, non-tender, non-distended - Labs CBC & Chem 7: 03/14/17 07:50 03/14/17 07:50 Labs: Laboratory Results - last 24 hr 03/13/17 03/13/17 03/13/17 11:52 17:19 21:14 WBC RBC Hgb Hct MCV MCH MCHC RDW Plt Count Sodium Potassium Chloride Carbon Dioxide Anion Gap BUN Creatinine Estimated GFR BUN/Creatinine Ratio Glucose POC Glucose 206 H 136 H 120 H Calcium 03/14/17 03/14/17 03/14/17 05:31 07:50 07:50 WBC 9.8 RBC 2.35 L Hgb 7.1 L Hct 21.3 L MCV 91 MCH 30 MCHC 33 RDW 16.8 H Plt Count 105 L Sodium 145 Potassium 3.7 Chloride 110.4 H Carbon Dioxide 23 Anion Gap 15 BUN 15 Creatinine 1.2 Estimated GFR > 60 BUN/Creatinine Ratio 13 Glucose 103 H POC Glucose 125 H Calcium 7.2 L
[2017-03-14] MEDS ORDERED: NACL 0.9% 500 ML 500 ML IV ONE ×3 (12:00→16:00)
--- NOTE | 2017-03-14 12:50 | Progress Note ---
Assessment and Plan Hypotension: Resolved .Likely 2/2 volume depletion. He is still on norepinephrine low-dose Continue normal saline but will decrease to 75 mL/h as there is history of questionable cardiomyopathy Hypothermia: Patient on heating blanket Suspected c. DIFF COLITIS: Continue Levaquin and Flagyl No diarrhea He had one semisolid BM last night GI bleed: Likely lower GI bleed; GI note reviewed and appreciated Monitor H&H Hemoglobin dropped to 7.1 We will transfuse 1 unit of PRBC No plans for endoscopy at this time Continue PPI Dementia: Supportive care Sacral and heel decubiti: Wound care consult Subjective Date of service: 03/14/17 Principal diagnosis: GI bleed Interval history: Patient seen and examined Discussed with nursing staff All interdisciplinary notes reviewed Labs reviewed Patient is awake and alert. Poor historian He denies any pain Still on norepinephrine at 3 g His blood pressure is borderline at 90 systolic Objective - Constitutional Vitals: Vital Signs - 12hr 03/14/17 03/14/17 03/14/17 00:47 00:50 01:00 Temperature Pulse Rate 83 79 Respiratory 16 12 14 Rate Blood Pressure 100/58 101/57 O2 Sat by Pulse 98 92 96 Oximetry 03/14/17 03/14/17 03/14/17 01:10 01:20 01:30 Temperature Pulse Rate 79 86 79 Respiratory 10 L 14 13 Rate Blood Pressure 89/57 93/60 85/56 O2 Sat by Pulse 92 93 94 Oximetry 03/14/17 03/14/17 03/14/17 01:40 01:50 02:00 Temperature Pulse Rate 82 80 79 Respiratory 13 13 11 L Rate Blood Pressure 85/56 92/56 92/56 O2 Sat by Pulse 95 94 94 Oximetry 03/14/17 03/14/17 03/14/17 02:10 02:20 02:30 Temperature Pulse Rate 76 77 76 Respiratory 13 13 8 L Rate Blood Pressure 101/73 90/28 87/58 O2 Sat by Pulse 95 95 93 Oximetry 03/14/17 03/14/17 03/14/17 02:41 02:51 03:00 Temperature Pulse Rate 82 79 78 Respiratory 11 L 12 14 Rate Blood Pressure 87/58 96/68 96/61 O2 Sat by Pulse 96 96 96 Oximetry 03/14/17 03/14/17 03/14/17 03:10 03:20 03:30 Temperature Pulse Rate 80 85 81 Respiratory 12 12 11 L Rate Blood Pressure 96/68 103/59 88/58 O2 Sat by Pulse 97 96 96 Oximetry 03/14/17 03/14/17 03/14/17 03:39 03:40 03:50 Temperature 97.6 F Pulse Rate 78 77 Respiratory 14 12 Rate Blood Pressure 96/61 78/53 O2 Sat by Pulse 95 93 Oximetry 03/14/17 03/14/17 03/14/17 04:00 04:10 04:20 Temperature Pulse Rate 76 82 78 Respiratory 14 13 13 Rate Blood Pressure 78/53 79/52 84/51 O2 Sat by Pulse 95 98 95 Oximetry 03/14/17 03/14/17 03/14/17 04:30 04:40 04:47 Temperature Pulse Rate 77 79 Respiratory 16 15 14 Rate Blood Pressure 97/65 97/65 O2 Sat by Pulse 95 95 97 Oximetry 03/14/17 03/14/17 03/14/17 04:50 05:00 05:11 Temperature Pulse Rate 86 86 86 Respiratory 7 L 11 L 10 L Rate Blood Pressure 101/62 95/62 101/62 O2 Sat by Pulse 95 94 Oximetry 03/14/17 03/14/17 03/14/17 05:21 05:30 05:41 Temperature Pulse Rate 82 81 77 Respiratory 15 10 L 19 Rate Blood Pressure 90/63 86/56 95/62 O2 Sat by Pulse 95 95 95 Oximetry 03/14/17 03/14/17 03/14/17 05:51 06:00 06:11 Temperature Pulse Rate 76 85 79 Respiratory 15 17 13 Rate Blood Pressure 84/59 92/60 92/60 O2 Sat by Pulse 95 93 94 Oximetry 03/14/17 03/14/17 03/14/17 06:21 06:30 06:40 Temperature Pulse Rate 81 77 84 Respiratory 20 11 L 14 Rate Blood Pressure 86/57 90/59 90/59 O2 Sat by Pulse 96 97 98 Oximetry 03/14/17 03/14/17 03/14/17 06:50 07:00 07:10 Temperature Pulse Rate 83 80 79 Respiratory 13 8 L 15 Rate Blood Pressure 93/64 101/61 101/61 O2 Sat by Pulse 95 95 95 Oximetry 03/14/17 03/14/17 03/14/17 07:20 07:30 07:40 Temperature Pulse Rate 84 75 79 Respiratory 22 13 10 L Rate Blood Pressure 89/60 94/55 94/55 O2 Sat by Pulse 97 92 97 Oximetry 03/14/17 03/14/17 03/14/17 07:50 08:00 08:10 Temperature 98.6 F Pulse Rate 78 78 82 Respiratory 9 L 11 L 18 Rate Blood Pressure 95/64 95/62 95/62 O2 Sat by Pulse 95 94 97 Oximetry 03/14/17 03/14/17 03/14/17 08:20 08:30 08:40 Temperature Pulse Rate 79 76 75 Respiratory 10 L 15 13 Rate Blood Pressure 87/61 88/63 88/63 O2 Sat by Pulse 95 95 96 Oximetry 03/14/17 03/14/17 03/14/17 08:50 09:00 09:10 Temperature Pulse Rate 93 H 80 79 Respiratory 11 L 18 17 Rate Blood Pressure 88/56 89/65 89/65 O2 Sat by Pulse 95 94 97 Oximetry 03/14/17 03/14/17 03/14/17 09:20 09:30 09:40 Temperature Pulse Rate 81 84 87 Respiratory 13 13 22 Rate Blood Pressure 88/56 95/63 95/63 O2 Sat by Pulse 92 95 97 Oximetry 03/14/17 03/14/17 03/14/17 09:50 10:00 10:10 Temperature Pulse Rate 85 85 93 H Respiratory 19 15 12 Rate Blood Pressure 97/71 97/68 97/68 O2 Sat by Pulse 97 96 95 Oximetry 03/14/17 03/14/17 03/14/17 10:20 10:30 10:40 Temperature Pulse Rate 83 84 83 Respiratory 12 12 11 L Rate Blood Pressure 89/51 80/57 80/57 O2 Sat by Pulse 97 95 94 Oximetry 03/14/17 03/14/17 03/14/17 10:50 11:00 11:10 Temperature Pulse Rate 80 82 82 Respiratory 11 L 13 11 L Rate Blood Pressure 85/61 95/66 95/66 O2 Sat by Pulse 96 94 92 Oximetry 03/14/17 11:20 Temperature Pulse Rate 82 Respiratory 13 Rate Blood Pressure 91/54 O2 Sat by Pulse 96 Oximetry General appearance: Present: no acute distress - EENT Eyes: PERRL, EOM intact ENT: hearing intact, clear oral mucosa - Neck Neck: supple, normal ROM, no masses or JVD - Respiratory Respiratory effort: normal Respiratory: bilateral: CTA - Cardiovascular Rhythm: regular Heart Sounds: Present: S1 & S2 Extremity abnormal: edema (bilateral leg edema with dressing on both heels) - Gastrointestinal General gastrointestinal: Present: soft, non-tender Rectal Exam: deferred - Neurologic Neurologic: no focal deficits, moves all extremities - Labs CBC & Chem 7: 03/14/17 07:50 03/14/17 07:50 Labs: Abnormal lab results 03/11/17 03/13/17 03/13/17 Range/Units 22:59 17:19 21:14 RBC (3.65-5.03) M/mm3 Hgb (11.8-15.2) gm/dl Hct (35.5-45.6) % RDW (13.2-15.2) % Plt Count (140-440) K/mm3 Chloride (98-107) mmol/L Glucose (75-100) mg/dL POC Glucose 136 H 120 H (70-105) Calcium (8.4-10.2) mg/dL Crossmatch See Detail 03/14/17 03/14/17 03/14/17 Range/Units 05:31 07:50 07:50 RBC 2.35 L (3.65-5.03) M/mm3 Hgb 7.1 L (11.8-15.2) gm/dl Hct 21.3 L (35.5-45.6) % RDW 16.8 H (13.2-15.2) % Plt Count 105 L (140-440) K/mm3 Chloride 110.4 H (98-107) mmol/L Glucose 103 H (75-100) mg/dL POC Glucose 125 H (70-105) Calcium 7.2 L (8.4-10.2) mg/dL Crossmatch
--- NOTE | 2017-03-14 16:29 | Progress Note ---
Assessment and Plan Impression: Attention most likely hypovolemia Lower GI bleeding possibly compounded by use of anticoagulants. 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 Maintain M AP more than 65 Critical care time 31 minutes Subjective Date of service: 03/14/17 Principal diagnosis: GI bleed Interval history: Patient feeling much better still on levophed Objective Vital Signs - 12hr 03/14/17 03/14/17 03/14/17 04:30 04:40 04:47 Temperature Pulse Rate 77 79 Respiratory 16 15 14 Rate Blood Pressure 97/65 97/65 O2 Sat by Pulse 95 95 97 Oximetry 03/14/17 03/14/17 03/14/17 04:50 05:00 05:11 Temperature Pulse Rate 86 86 86 Respiratory 7 L 11 L 10 L Rate Blood Pressure 101/62 95/62 101/62 O2 Sat by Pulse 95 94 Oximetry 03/14/17 03/14/17 03/14/17 05:21 05:30 05:41 Temperature Pulse Rate 82 81 77 Respiratory 15 10 L 19 Rate Blood Pressure 90/63 86/56 95/62 O2 Sat by Pulse 95 95 95 Oximetry 03/14/17 03/14/17 03/14/17 05:51 06:00 06:11 Temperature Pulse Rate 76 85 79 Respiratory 15 17 13 Rate Blood Pressure 84/59 92/60 92/60 O2 Sat by Pulse 95 93 94 Oximetry 03/14/17 03/14/17 03/14/17 06:21 06:30 06:40 Temperature Pulse Rate 81 77 84 Respiratory 20 11 L 14 Rate Blood Pressure 86/57 90/59 90/59 O2 Sat by Pulse 96 97 98 Oximetry 03/14/17 03/14/17 03/14/17 06:50 07:00 07:10 Temperature Pulse Rate 83 80 79 Respiratory 13 8 L 15 Rate Blood Pressure 93/64 101/61 101/61 O2 Sat by Pulse 95 95 95 Oximetry 03/14/17 03/14/17 03/14/17 07:20 07:30 07:40 Temperature Pulse Rate 84 75 79 Respiratory 22 13 10 L Rate Blood Pressure 89/60 94/55 94/55 O2 Sat by Pulse 97 92 97 Oximetry 03/14/17 03/14/17 03/14/17 07:50 08:00 08:10 Temperature 98.6 F Pulse Rate 78 78 82 Respiratory 9 L 11 L 18 Rate Blood Pressure 95/64 95/62 95/62 O2 Sat by Pulse 95 94 97 Oximetry 03/14/17 03/14/17 03/14/17 08:20 08:30 08:40 Temperature Pulse Rate 79 76 75 Respiratory 10 L 15 13 Rate Blood Pressure 87/61 88/63 88/63 O2 Sat by Pulse 95 95 96 Oximetry 03/14/17 03/14/17 03/14/17 08:50 09:00 09:10 Temperature Pulse Rate 93 H 80 79 Respiratory 11 L 18 17 Rate Blood Pressure 88/56 89/65 89/65 O2 Sat by Pulse 95 94 97 Oximetry 03/14/17 03/14/17 03/14/17 09:20 09:30 09:40 Temperature Pulse Rate 81 84 87 Respiratory 13 13 22 Rate Blood Pressure 88/56 95/63 95/63 O2 Sat by Pulse 92 95 97 Oximetry 03/14/17 03/14/17 03/14/17 09:50 10:00 10:10 Temperature Pulse Rate 85 86 93 H Respiratory 19 15 12 Rate Blood Pressure 97/71 97/68 97/68 O2 Sat by Pulse 97 96 95 Oximetry 03/14/17 03/14/17 03/14/17 10:20 10:30 10:40 Temperature Pulse Rate 83 84 83 Respiratory 12 12 11 L Rate Blood Pressure 89/51 80/57 80/57 O2 Sat by Pulse 97 95 94 Oximetry 03/14/17 03/14/17 03/14/17 10:50 11:00 11:10 Temperature Pulse Rate 80 82 82 Respiratory 11 L 13 11 L Rate Blood Pressure 85/61 95/66 95/66 O2 Sat by Pulse 96 94 92 Oximetry 03/14/17 03/14/17 03/14/17 11:20 11:30 11:40 Temperature Pulse Rate 82 76 79 Respiratory 13 17 17 Rate Blood Pressure 91/54 94/62 94/62 O2 Sat by Pulse 96 94 95 Oximetry 03/14/17 03/14/17 03/14/17 11:50 12:00 12:10 Temperature Pulse Rate 79 77 81 Respiratory 15 12 12 Rate Blood Pressure 82/58 104/67 104/67 O2 Sat by Pulse 95 96 91 Oximetry 03/14/17 03/14/17 03/14/17 12:20 12:30 12:40 Temperature Pulse Rate 80 83 86 Respiratory 14 12 7 L Rate Blood Pressure 104/65 104/65 94/74 O2 Sat by Pulse 94 99 97 Oximetry 03/14/17 03/14/17 03/14/17 12:50 13:00 13:10 Temperature Pulse Rate 91 H 87 85 Respiratory 12 10 L 14 Rate Blood Pressure 85/64 94/61 94/61 O2 Sat by Pulse 95 94 96 Oximetry 03/14/17 03/14/17 03/14/17 13:20 13:30 13:41 Temperature Pulse Rate 84 84 88 Respiratory 11 L 15 12 Rate Blood Pressure 92/66 86/64 86/64 O2 Sat by Pulse 96 94 94 Oximetry 03/14/17 03/14/17 03/14/17 13:51 14:00 14:11 Temperature Pulse Rate 93 H 88 84 Respiratory 7 L 15 16 Rate Blood Pressure 82/55 88/61 88/61 O2 Sat by Pulse 94 95 94 Oximetry 03/14/17 03/14/17 03/14/17 14:21 14:30 14:41 Temperature Pulse Rate 86 85 82 Respiratory 13 19 14 Rate Blood Pressure 89/60 90/60 90/60 O2 Sat by Pulse 92 92 93 Oximetry 03/14/17 16:03 Temperature 98.6 F Pulse Rate 83 Respiratory 14 Rate Blood Pressure 84/57 O2 Sat by Pulse 95 Oximetry Constitutional: no acute distress, alert Eyes: non-icteric ENT: oropharynx dry Neck: other (rigid in all directions) Effort: normal Ascultation: Bilateral: clear Cardiovascular: irregular rhythm (atrial fibrillation) Integumentary: decubitus ulcer, other Extremities: other (contracture deformities of upper and lower extremities) CBC and BMP: 03/14/17 07:50 03/14/17 07:50 ABG, PT/INR, D-dimer: PT/INR, D-dimer PT 22.3 Sec. (12.2-14.9) H 03/11/17 22:59 INR 1.84 (0.87-1.13) H 03/11/17 22:59 Abnormal lab findings: Abnormal Labs 03/11/17 03/11/17 03/11/17 00:10 22:59 22:59 WBC RBC 2.40 L Hgb 7.2 L Hct 22.1 L RDW 18.0 H Plt Count 104 L Lymph % (Auto) Lymph # Sanders # Seg Neutrophils % Seg Neutrophils # PT 22.3 H INR 1.84 H APTT 52.8 H Chloride Glucose POC Glucose Calcium Total Creatine Kinase CK-MB (CK-2) CK-MB (CK-2) Rel Index Troponin T NT-Pro-B Natriuret Pep Total Protein Albumin LDL Cholesterol Direct HDL Cholesterol Urine WBC (Auto) 142.0 H Crossmatch 03/11/17 03/11/17 03/12/17 22:59 22:59 05:51 WBC RBC Hgb Hct RDW Plt Count Lymph % (Auto) Lymph # Sanders # Seg Neutrophils % Seg Neutrophils # PT INR APTT Chloride 108.7 H Glucose 72 L POC Glucose Calcium 7.6 L Total Creatine Kinase 251 H CK-MB (CK-2) 15.2 H CK-MB (CK-2) Rel Index 6.0 H Troponin T 0.151 H* NT-Pro-B Natriuret Pep 4673 H Total Protein 4.9 L Albumin 1.6 L LDL Cholesterol Direct HDL Cholesterol Urine WBC (Auto) Crossmatch See Detail 03/12/17 03/12/17 03/12/17 05:51 10:45 10:45 WBC RBC Hgb 7.4 L 8.5 L Hct 22.4 L 26.3 L RDW Plt Count Lymph % (Auto) Lymph # Sanders # Seg Neutrophils % Seg Neutrophils # PT INR APTT Chloride Glucose POC Glucose Calcium Total Creatine Kinase 238 H CK-MB (CK-2) 12.7 H CK-MB (CK-2) Rel Index 5.3 H Troponin T 0.153 H* NT-Pro-B Natriuret Pep Total Protein Albumin LDL Cholesterol Direct HDL Cholesterol Urine WBC (Auto) Crossmatch 03/12/17 03/12/17 03/12/17 13:40 23:24 Unknown WBC RBC Hgb 8.2 L Hct 24.5 L RDW Plt Count Lymph % (Auto) Lymph # Sanders # Seg Neutrophils % Seg Neutrophils # PT INR APTT Chloride Glucose POC Glucose 154 H Calcium Total Creatine Kinase 272 H CK-MB (CK-2) 16.4 H CK-MB (CK-2) Rel Index 6.0 H Troponin T 0.165 H* NT-Pro-B Natriuret Pep Total Protein Albumin LDL Cholesterol Direct 26 L HDL Cholesterol 34 L Urine WBC (Auto) Crossmatch 03/13/17 03/13/17 03/13/17 04:00 04:00 05:06 WBC 12.1 H RBC 2.57 L Hgb 7.8 L Hct 23.2 L RDW 16.7 H Plt Count 112 L Lymph % (Auto) 6.7 L Lymph # 0.8 L Sanders # 0.9 H Seg Neutrophils % 86.0 H Seg Neutrophils # 10.4 H PT INR APTT Chloride 108.1 H Glucose 158 H POC Glucose 161 H Calcium 7.4 L Total Creatine Kinase CK-MB (CK-2) CK-MB (CK-2) Rel Index Troponin T NT-Pro-B Natriuret Pep Total Protein Albumin LDL Cholesterol Direct HDL Cholesterol Urine WBC (Auto) Crossmatch 03/13/17 03/13/17 03/13/17 11:52 17:19 21:14 WBC RBC Hgb Hct RDW Plt Count Lymph % (Auto) Lymph # Sanders # Seg Neutrophils % Seg Neutrophils # PT INR APTT Chloride Glucose POC Glucose 206 H 136 H 120 H Calcium Total Creatine Kinase CK-MB (CK-2) CK-MB (CK-2) Rel Index Troponin T NT-Pro-B Natriuret Pep Total Protein Albumin LDL Cholesterol Direct HDL Cholesterol Urine WBC (Auto) Crossmatch 03/14/17 03/14/17 03/14/17 05:31 07:50 07:50 WBC RBC 2.35 L Hgb 7.1 L Hct 21.3 L RDW 16.8 H Plt Count 105 L Lymph % (Auto) Lymph # Sanders # Seg Neutrophils % Seg Neutrophils # PT INR APTT Chloride 110.4 H Glucose 103 H POC Glucose 125 H Calcium 7.2 L Total Creatine Kinase CK-MB (CK-2) CK-MB (CK-2) Rel Index Troponin T NT-Pro-B Natriuret Pep Total Protein Albumin LDL Cholesterol Direct HDL Cholesterol Urine WBC (Auto) Crossmatch
[2017-03-14] MEDS: TYLENOL PO PRN (16:46)
[2017-03-14] MEDS: LEVOPHED 8 MG in NACL 0.9% 250ML 242 ML IV SCH (19:00)
[2017-03-14 22:50] LABS: Hematocrit 23.3 % (35.5-45.6); Hemoglobin 7.7 gm/dl (11.8-15.2)
[2017-03-15 05:25] LABS: Hematocrit 22.2 % (35.5-45.6); Hemoglobin 7.6 gm/dl (11.8-15.2); Mean Corpuscular HGB Conc 34 % (32-34); Mean Corpuscular Hemoglobin 31 pg (28-32); Mean Corpuscular Volume 90 fl (84-94); Red Blood Count 2.46 M/mm3 (3.65-5.03); Red Cell Distribution Width 16.2 % (13.2-15.2)
[2017-03-15 05:45] LABS: BUN/Creatinine Ratio 11; Blood Urea Nitrogen 13 mg/dL (9-20); Calcium 6.9 mg/dL (8.4-10.2); Hemolysis Index 6
[2017-03-15 05:50] LABS: Platelet Count 86 K/mm3 (140-440)
[2017-03-15] MEDS: NOVOLOG SUB-Q SCH ×5 (05:55→22:15)
[2017-03-15] MEDS: SENOKOT S PO SCH ×2 (05:56→22:16)
[2017-03-15] MEDS: SYNTHROID PO SCH (06:20)
[2017-03-15] MEDS: LEVOPHED 8 MG in NACL 0.9% 250ML 242 ML IV SCH (06:57)
[2017-03-15] MEDS: TYLENOL PO PRN ×2 (10:39→15:10)
[2017-03-15] MEDS: THERAGRAN-M Tab PO SCH (10:40)
[2017-03-15] MEDS: HEPARIN SUB-Q SCH ×2 (10:40→22:41)
--- NOTE | 2017-03-15 11:03 | Gastroenterology Progress Note ---
Assessment and Plan (1) Fecal impaction in rectum - D/C Senokot for now, as pt is having multiple BMs. (2) GI bleed - Per sister, progressive anemia for the last 6 months with (-) colonoscopy ( and ?EGD) at [facility] earlier this year. ( family has not brought records) - Patient has required multiple PRBC transfusions at his various hospitalizations, Some blood smears noted this am, nursing reports 3 bloody BMs overnight. - No prior Hematology workup per family. - Patient is on progress man coumadin therapy, continue to hold this for now as he appears intolerant. I am OK with DVT PPY at this point since no severe bleeding and the patient is high risk. -Recheck H/H. - Long d/w the sister about goals of care( per Dr. Baez) given multiple hospitalizations, progression to snf, etc; per her, she and the patient 's son have thought recently that the patient is "tired" and does not want any further invasive testing done. They do not want intubations, dialysis, chest compressions, etc, although there is no formal Living Will/POA for health care. Nursing reports sister wants DNR but has not formally signed the paperwork. -S/P PRBC transfusion -Will need to discuss with sister if she is willing for the patient to undergo invasive procedures. Will discuss with Dr. Sarmiento. Subjective Date of service: 03/15/17 Principal diagnosis: GI bleed Interval history: Per nursing 3 bloody BM overnight. Objective - Constitutional Vitals: Temp Pulse Resp BP Pulse Ox 97.5 F L 91 H 12 102/65 96 03/15/17 10:22 03/15/17 10:30 03/15/17 10:30 03/15/17 10:30 03/15/17 10:30 General appearance: no acute distress - EENT Eyes: EOM intact ENT: hearing intact - Neck Neck: supple - Cardiovascular Rhythm: regular - Gastrointestinal General gastrointestinal: Present: soft, non-tender, normal bowel sounds - Integumentary Integumentary: Present: warm, dry (alert) - Labs CBC & Chem 7: 03/15/17 05:10 03/15/17 05:10 Labs: Laboratory Results - last 24 hr 03/11/17 03/14/17 03/14/17 22:59 08:23 11:51 WBC RBC Hgb Hct MCV MCH MCHC RDW Plt Count Sodium Potassium Chloride Carbon Dioxide Anion Gap BUN Creatinine Estimated GFR BUN/Creatinine Ratio Glucose POC Glucose 105 135 H Calcium Blood Type O POSITIVE Antibody Screen Negative Crossmatch See Detail 03/14/17 03/14/17 03/14/17 16:10 21:56 22:10 WBC RBC Hgb 7.7 L Hct 23.3 L MCV MCH MCHC RDW Plt Count Sodium Potassium Chloride Carbon Dioxide Anion Gap BUN Creatinine Estimated GFR BUN/Creatinine Ratio Glucose POC Glucose 144 H 105 Calcium Blood Type Antibody Screen Crossmatch 03/15/17 03/15/17 03/15/17 05:10 05:10 08:15 WBC 8.4 RBC 2.46 L Hgb 7.6 L Hct 22.2 L MCV 90 MCH 31 MCHC 34 RDW 16.2 H Plt Count 86 L Sodium 147 H Potassium 3.7 Chloride 113.0 H Carbon Dioxide 21 L Anion Gap 17 BUN 13 Creatinine 1.2 Estimated GFR > 60 BUN/Creatinine Ratio 11 Glucose 122 H POC Glucose 119 H Calcium 6.9 L Blood Type Antibody Screen Crossmatch
--- NOTE | 2017-03-15 12:16 | Progress Note ---
Assessment and Plan - Patient Problems (1) Cardiac enzymes elevated Current Visit: Yes Status: Acute Plan to address problem: The patient was admitted from the half-way with complaints of rectal bleeding, found with severe anemia, hematocrit of 22. GI workup is in progress. Cardiac enzymes measured on presentation are elevated, with the CPK of 251, MB index of 6%, and troponin of 0.15. Notably, the ECG reveals no acute ischemic changes. We will empirically treat with topical nitrates and oral beta blockers, get an echocardiogram for left ventricle function assessment. Patient is not a candidate for oral antiplatelet therapy due to GI bleed and anemia. Further cardiac evaluation would depend on clinical course. (2) Atrial fibrillation Current Visit: Yes Status: Acute Plan to address problem: We will continue rate control of atrial fibrillation. Patient was on Xarelto oral anticoagulation on presentation. Due to GI bleed and anemia, he is no longer a candidate for continued oral anticoagulation going forward. Subjective Date of service: 03/15/17 Principal diagnosis: GI bleed Interval history: The patient is comfortable, awake and alert, in no acute distress. He denies any cardiac complaints. On telemetry, stable sinus rhythm at 68, systolic blood pressure 89. Objective Vital Signs Temp Pulse Pulse Resp Resp BP Pulse Ox 03/15/17 10:30 91 H 12 102/65 96 03/15/17 10:22 97.5 F L 03/15/17 10:20 90 16 100/66 97 03/15/17 10:10 90 14 92/65 96 03/15/17 10:00 94 H 14 92/65 97 03/15/17 09:50 94 H 7 L 94/59 95 03/15/17 09:40 94 H 11 L 93/55 96 03/15/17 09:30 94 H 11 L 93/55 94 03/15/17 09:20 93 H 13 86/60 95 03/15/17 09:10 89 12 90/72 95 03/15/17 09:00 89 15 90/72 96 03/15/17 08:50 83 19 91/67 96 03/15/17 08:40 79 14 84/61 94 03/15/17 08:30 79 14 84/61 91 03/15/17 08:20 83 12 79/55 94 03/15/17 08:10 80 13 82/61 95 03/15/17 08:00 80 15 83/59 96 03/15/17 07:50 80 13 87/65 93 03/15/17 07:40 81 12 82/61 94 03/15/17 07:30 81 14 82/61 94 03/15/17 07:20 81 14 93/63 96 03/15/17 07:10 80 12 90/66 96 03/15/17 07:00 79 14 90/66 95 03/15/17 06:50 81 12 83/58 95 03/15/17 06:40 80 15 79/53 95 03/15/17 06:30 77 14 88/57 95 03/15/17 06:20 82 14 88/57 98 03/15/17 06:10 87 16 75/47 95 03/15/17 06:00 83 14 81/52 94 03/15/17 05:50 85 19 84/54 95 03/15/17 05:40 82 19 75/47 94 03/15/17 05:30 86 17 75/47 94 03/15/17 05:20 83 17 76/51 94 03/15/17 05:10 85 21 82/47 96 03/15/17 05:00 91 H 14 86/63 89 03/15/17 04:50 90 26 H 86/63 95 03/15/17 04:40 83 22 88/67 96 03/15/17 04:30 81 18 87/64 96 03/15/17 04:20 80 18 96/60 97 03/15/17 04:10 82 17 87/58 96 03/15/17 04:00 98.1 F 88 84 23 89/68 94 03/15/17 03:50 81 20 88/67 97 03/15/17 03:40 82 21 87/58 96 03/15/17 03:30 80 18 87/58 98 03/15/17 03:20 80 20 80/61 97 03/15/17 03:10 84 18 94/58 96 03/15/17 03:00 83 24 94/58 95 03/15/17 02:50 83 20 92/53 97 03/15/17 02:40 81 21 85/64 95 03/15/17 02:30 80 21 85/64 96 03/15/17 02:20 81 20 81/63 97 03/15/17 02:10 80 16 89/67 96 03/15/17 02:00 80 16 89/67 96 03/15/17 01:50 79 22 95/66 97 03/15/17 01:40 82 20 93/64 96 03/15/17 01:30 84 21 93/64 94 03/15/17 01:20 80 19 93/70 97 03/15/17 01:10 86 19 102/67 97 03/15/17 01:00 81 20 102/67 96 03/15/17 00:50 82 22 97/70 96 03/15/17 00:40 83 20 104/66 97 03/15/17 00:30 84 21 96/67 96 03/15/17 00:20 80 16 96/67 95 03/15/17 00:10 80 16 96/67 96 03/15/17 00:00 98.8 F 79 86 20 92/60 97 03/14/17 23:50 90 28 H 90/62 03/14/17 23:40 72 14 92/60 03/14/17 23:30 74 17 92/60 03/14/17 23:22 74 17 86/62 03/14/17 23:20 74 17 86/62 03/14/17 23:10 71 16 03/14/17 23:07 73 16 03/14/17 23:00 72 15 80/61 03/14/17 22:53 72 15 80/61 03/14/17 22:51 73 17 80/61 03/14/17 22:41 73 16 94/59 03/14/17 22:30 74 15 94/59 03/14/17 22:21 75 16 100/70 03/14/17 22:11 77 15 90/60 03/14/17 22:01 78 22 90/60 03/14/17 22:00 74 16 03/14/17 21:51 83 20 101/78 03/14/17 21:41 68 12 96/71 03/14/17 21:30 73 8 L 96/71 03/14/17 21:21 73 14 97/66 03/14/17 21:11 73 16 96/71 03/14/17 21:01 78 15 96/71 03/14/17 20:51 73 13 91/69 03/14/17 20:41 75 13 94/66 03/14/17 20:30 78 20 94/69 03/14/17 20:21 80 17 96/64 03/14/17 20:11 77 14 88/66 03/14/17 20:00 98.9 F 78 11 L 94/66 96 03/14/17 19:51 80 17 84/64 03/14/17 19:41 86 12 88/66 03/14/17 19:39 89 22 88/66 03/14/17 19:21 80 15 88/66 97 03/14/17 19:11 79 21 86/56 96 03/14/17 19:00 79 13 94/62 95 03/14/17 18:51 81 13 100/70 95 03/14/17 18:41 83 15 86/56 95 03/14/17 18:30 98.2 F 84 17 86/56 95 03/14/17 18:21 89 11 L 78/57 95 03/14/17 18:11 87 14 86/59 93 03/14/17 18:00 98.6 F 87 18 86/59 95 03/14/17 17:51 86 11 L 89/57 96 03/14/17 17:48 97.9 F 86 13 89/57 96 03/14/17 17:46 18 03/14/17 17:41 88 10 L 99/65 97 03/14/17 17:30 89 11 L 99/65 95 03/14/17 17:21 91 H 11 L 93/64 97 03/14/17 17:18 98.1 F 91 H 11 L 93/64 97 03/14/17 17:11 93 H 13 84/62 97 03/14/17 17:00 91 H 14 84/62 94 03/14/17 16:51 92 H 19 94/65 93 03/14/17 16:48 97.2 F L 94 H 16 94/65 92 03/14/17 16:41 89 11 L 99/67 95 03/14/17 16:30 84 11 L 99/67 93 03/14/17 16:21 94 H 26 H 92/61 93 03/14/17 16:18 98.6 F 90 19 97/60 93 03/14/17 16:11 92 H 9 L 84/57 75 L 03/14/17 16:03 98.6 F 83 14 84/57 95 03/14/17 16:01 82 18 84/57 95 03/14/17 16:00 96 03/14/17 15:51 84 20 94/70 96 03/14/17 15:41 85 10 L 97/60 95 03/14/17 15:30 81 12 97/60 95 03/14/17 15:21 84 16 91/61 94 03/14/17 15:11 78 17 81/59 93 03/14/17 15:00 81 13 81/59 94 03/14/17 14:51 85 17 96/66 92 03/14/17 14:41 82 14 90/60 93 03/14/17 14:30 85 19 90/60 92 03/14/17 14:21 86 13 89/60 92 03/14/17 14:11 84 16 88/61 94 03/14/17 14:00 88 15 88/61 95 03/14/17 13:51 93 H 7 L 82/55 94 03/14/17 13:41 88 12 86/64 94 03/14/17 13:30 84 15 86/64 94 03/14/17 13:20 84 11 L 92/66 96 03/14/17 13:10 85 14 94/61 96 03/14/17 13:00 87 10 L 94/61 94 03/14/17 12:50 91 H 12 85/64 95 03/14/17 12:40 86 7 L 94/74 97 03/14/17 12:30 83 12 104/65 99 03/14/17 12:20 80 14 104/65 94 - Physical Examination General: No Apparent Distress HEENT: Positive: PERRL Neck: Positive: neck supple Cardiac: Positive: Reg Rate and Rhythm Lungs: Positive: Decreased Breath Sounds Neuro: Positive: Grossly Intact Abdomen: Positive: Soft Skin: Positive: Clear Extremities: Absent: edema - Labs and Meds CBC 03/14/17 03/15/17 Range/Units 22:10 05:10 WBC 8.4 (4.5-11.0) K/mm3 RBC 2.46 L (3.65-5.03) M/mm3 Hgb 7.7 L 7.6 L (11.8-15.2) gm/dl Hct 23.3 L 22.2 L (35.5-45.6) % Plt Count 86 L (140-440) K/mm3 Comprehensive Metabolic Panel 03/15/17 Range/Units 05:10 Sodium 147 H (137-145) mmol/L Potassium 3.7 (3.6-5.0) mmol/L Chloride 113.0 H (98-107) mmol/L Carbon Dioxide 21 L (22-30) mmol/L BUN 13 (9-20) mg/dL Creatinine 1.2 (0.8-1.5) mg/dL Glucose 122 H (75-100) mg/dL Calcium 6.9 L (8.4-10.2) mg/dL
[2017-03-15 12:23] LABS: Hematocrit 23.1 % (35.5-45.6); Hemoglobin 7.8 gm/dl (11.8-15.2)
[2017-03-15] MEDS: NACL 0.9% 1000 ML 1,000 ML IV SCH (13:00)
--- NOTE | 2017-03-15 15:38 | Progress Note ---
Assessment and Plan Imp: 1. GI bleed 2. Acute blood loss anemia 3. Hemorrhagic shock 4. Cardiomyopathy 5. P-afib 5. Dementia per chart 6. Hypernatremia Rec: 1. H/H stable; monitor 2. F/u GI recs 3. Stable off Levophed 4. Change to 1/2 NS as sodium is creeping up 5. DVT PPx 6. Family has made him DNR/DNI; complex patient/decision-making No family present Subjective Date of service: 03/15/17 Principal diagnosis: GI bleed Interval history: Had 4 BMs with blood overnight, although scant this AM. Also required pressors until this AM. Awake, alert, no complaints. Active Medications Acetaminophen (Tylenol) 650 mg PO Q4H PRN PRN Reason: Pain MILD(1-3)/Fever >100.5/GUAJARDO Last Admin: 03/15/17 15:10 Dose: 650 mg Carvedilol (Coreg) 3.125 mg PO BID [facility] Heparin Sodium (Porcine) (Heparin) 5,000 unit SUB-Q Q12HR [facility] Last Admin: 03/15/17 10:40 Dose: 5,000 unit Norepinephrine 8 mg/ Sodium (Chloride) 250 mls @ 3.75 mls/hr IV TITR CORNELIO; 2 MCG /MIN PRN Reason: Protocol Last Titration: 03/15/17 10:38 Dose: 0 mcg/min, 0 mls/hr Sodium Chloride (Nacl 0.9% 1000 Ml) 1,000 mls @ 75 mls/hr IV DIRECT [facility] Last Admin: 03/15/17 13:00 Dose: 100 mls/hr Insulin Aspart (Novolog) 0 units SUB-Q ACHS [facility] PRN Reason: Protocol Last Admin: 03/15/17 13:26 Dose: Not Given Levothyroxine Sodium (Synthroid) 200 mcg PO DAILY@0600 [facility] Last Admin: 03/15/17 06:20 Dose: 200 mcg Multivitamins/Minerals (Theragran-M Tab) 1 each PO QDAY [facility] Last Admin: 03/15/17 10:40 Dose: 1 each Nitroglycerin (Nitro Dur) 0.1 mg TD QDAY@0600 [facility] Ondansetron HCl (Zofran) 4 mg IV Q8H PRN PRN Reason: N/V unrelieved by Reglan Senna/Docusate Sodium (Senokot S) 2 tab PO QHS CORNELIO Last Admin: 03/15/17 05:56 Dose: Not Given Objective Vital Signs - 12hr 03/15/17 03/15/17 03/15/17 03:40 03:50 04:00 Temperature 98.1 F Pulse Rate 82 81 88 Pulse Rate [ 84 Apical] Respiratory 21 20 23 Rate Blood Pressure 87/58 88/67 89/68 O2 Sat by Pulse 96 97 94 Oximetry 03/15/17 03/15/17 03/15/17 04:10 04:20 04:30 Temperature Pulse Rate 82 80 81 Pulse Rate [ Apical] Respiratory 17 18 18 Rate Blood Pressure 87/58 96/60 87/64 O2 Sat by Pulse 96 97 96 Oximetry 03/15/17 03/15/17 03/15/17 04:40 04:50 05:00 Temperature Pulse Rate 83 90 91 H Pulse Rate [ Apical] Respiratory 22 26 H 14 Rate Blood Pressure 88/67 86/63 86/63 O2 Sat by Pulse 96 95 89 Oximetry 03/15/17 03/15/17 03/15/17 05:10 05:20 05:30 Temperature Pulse Rate 85 83 86 Pulse Rate [ Apical] Respiratory 21 17 17 Rate Blood Pressure 82/47 76/51 75/47 O2 Sat by Pulse 96 94 94 Oximetry 03/15/17 03/15/17 03/15/17 05:40 05:50 06:00 Temperature Pulse Rate 82 85 83 Pulse Rate [ Apical] Respiratory 19 19 14 Rate Blood Pressure 75/47 84/54 81/52 O2 Sat by Pulse 94 95 94 Oximetry 03/15/17 03/15/17 03/15/17 06:10 06:20 06:30 Temperature Pulse Rate 87 82 77 Pulse Rate [ Apical] Respiratory 16 14 14 Rate Blood Pressure 75/47 88/57 88/57 O2 Sat by Pulse 95 98 95 Oximetry 03/15/17 03/15/17 03/15/17 06:40 06:50 07:00 Temperature Pulse Rate 80 81 79 Pulse Rate [ Apical] Respiratory 15 12 14 Rate Blood Pressure 79/53 83/58 90/66 O2 Sat by Pulse 95 95 95 Oximetry 03/15/17 03/15/17 03/15/17 07:10 07:20 07:30 Temperature Pulse Rate 80 81 81 Pulse Rate [ Apical] Respiratory 12 14 14 Rate Blood Pressure 90/66 93/63 82/61 O2 Sat by Pulse 96 96 94 Oximetry 03/15/17 03/15/17 03/15/17 07:40 07:50 08:00 Temperature Pulse Rate 81 80 80 Pulse Rate [ Apical] Respiratory 12 13 16 Rate Blood Pressure 82/61 87/65 83/59 O2 Sat by Pulse 94 93 98 Oximetry 03/15/17 03/15/17 03/15/17 08:10 08:20 08:30 Temperature Pulse Rate 80 83 79 Pulse Rate [ Apical] Respiratory 13 12 14 Rate Blood Pressure 82/61 79/55 84/61 O2 Sat by Pulse 95 94 91 Oximetry 03/15/17 03/15/17 03/15/17 08:40 08:50 09:00 Temperature Pulse Rate 79 83 89 Pulse Rate [ Apical] Respiratory 14 19 15 Rate Blood Pressure 84/61 91/67 90/72 O2 Sat by Pulse 94 96 96 Oximetry 03/15/17 03/15/17 03/15/17 09:10 09:20 09:30 Temperature Pulse Rate 89 93 H 94 H Pulse Rate [ Apical] Respiratory 12 13 11 L Rate Blood Pressure 90/72 86/60 93/55 O2 Sat by Pulse 95 95 94 Oximetry 03/15/17 03/15/17 03/15/17 09:40 09:50 10:00 Temperature Pulse Rate 94 H 94 H 94 H Pulse Rate [ 90 Apical] Respiratory 11 L 7 L 20 Rate Blood Pressure 93/55 94/59 92/65 O2 Sat by Pulse 96 95 99 Oximetry 03/15/17 03/15/17 03/15/17 10:10 10:20 10:22 Temperature 97.5 F L Pulse Rate 90 90 Pulse Rate [ Apical] Respiratory 14 16 Rate Blood Pressure 92/65 100/66 O2 Sat by Pulse 96 97 Oximetry 03/15/17 03/15/17 03/15/17 10:30 10:40 10:50 Temperature Pulse Rate 91 H 85 85 Pulse Rate [ Apical] Respiratory 12 13 21 Rate Blood Pressure 102/65 102/65 87/59 O2 Sat by Pulse 96 96 97 Oximetry 03/15/17 03/15/17 03/15/17 11:00 11:10 11:20 Temperature Pulse Rate 88 86 Pulse Rate [ Apical] Respiratory 15 10 L Rate Blood Pressure 96/62 96/62 100/68 O2 Sat by Pulse 97 94 98 Oximetry 03/15/17 03/15/17 03/15/17 11:30 11:40 11:50 Temperature Pulse Rate 83 83 87 Pulse Rate [ Apical] Respiratory 12 17 13 Rate Blood Pressure 92/57 92/57 105/70 O2 Sat by Pulse 87 94 90 Oximetry 03/15/17 03/15/17 03/15/17 12:00 12:10 12:20 Temperature Pulse Rate 87 81 83 Pulse Rate [ 94 H Apical] Respiratory 17 15 16 Rate Blood Pressure 105/70 92/61 95/69 O2 Sat by Pulse 99 97 96 Oximetry 03/15/17 03/15/17 03/15/17 12:30 12:40 12:50 Temperature Pulse Rate 75 80 79 Pulse Rate [ Apical] Respiratory 14 16 14 Rate Blood Pressure 95/68 95/68 87/67 O2 Sat by Pulse 97 97 97 Oximetry 03/15/17 03/15/17 03/15/17 12:57 13:00 13:10 Temperature 97.6 F Pulse Rate 72 77 Pulse Rate [ Apical] Respiratory 16 14 Rate Blood Pressure 99/63 99/63 O2 Sat by Pulse 98 98 Oximetry 03/15/17 03/15/17 03/15/17 13:20 13:30 13:40 Temperature Pulse Rate 81 76 77 Pulse Rate [ Apical] Respiratory 18 14 16 Rate Blood Pressure 90/65 91/64 91/64 O2 Sat by Pulse 96 99 99 Oximetry 03/15/17 03/15/17 03/15/17 13:50 14:00 14:10 Temperature Pulse Rate 87 87 94 H Pulse Rate [ 96 H Apical] Respiratory 14 15 21 Rate Blood Pressure 98/62 105/73 105/73 O2 Sat by Pulse 100 99 99 Oximetry 03/15/17 03/15/17 03/15/17 14:20 14:30 14:40 Temperature Pulse Rate 97 H 95 H 93 H Pulse Rate [ Apical] Respiratory 17 11 L 11 L Rate Blood Pressure 103/78 103/78 103/78 O2 Sat by Pulse 99 98 99 Oximetry 03/15/17 03/15/17 14:50 15:00 Temperature Pulse Rate 94 H 86 Pulse Rate [ Apical] Respiratory 22 17 Rate Blood Pressure 97/79 107/81 O2 Sat by Pulse 100 98 Oximetry Constitutional: no acute distress, alert Eyes: non-icteric ENT: oropharynx moist Effort: normal Ascultation: Bilateral: clear Cardiovascular: regular rate and rhythm (no mrg) Gastrointestinal: normoactive bowel sounds, soft, non-tender, non-distended Integumentary: decubitus ulcer Extremities: edema (1+ bilateral LE edema), other (contracture deformities of upper and lower extremities) Neurologic: pupils equal and round, CN II-XII normal, other (awake, alert, follows commands, answers questions) Psychiatric: mood appropriate, affect normal CBC and BMP: 03/15/17 11:55 03/15/17 05:10 ABG, PT/INR, D-dimer: PT/INR, D-dimer PT 22.3 Sec. (12.2-14.9) H 03/11/17 22:59 INR 1.84 (0.87-1.13) H 03/11/17 22:59 Abnormal lab findings: Abnormal Labs 03/11/17 03/11/17 03/11/17 00:10 22:59 22:59 WBC RBC 2.40 L Hgb 7.2 L Hct 22.1 L RDW 18.0 H Plt Count 104 L Lymph % (Auto) Lymph # Tripp # Seg Neutrophils % Seg Neutrophils # PT 22.3 H INR 1.84 H APTT 52.8 H Sodium Chloride Carbon Dioxide Glucose POC Glucose Calcium Total Creatine Kinase CK-MB (CK-2) CK-MB (CK-2) Rel Index Troponin T NT-Pro-B Natriuret Pep Total Protein Albumin LDL Cholesterol Direct HDL Cholesterol Urine WBC (Auto) 142.0 H Crossmatch 03/11/17 03/11/17 03/12/17 22:59 22:59 05:51 WBC RBC Hgb Hct RDW Plt Count Lymph % (Auto) Lymph # Tripp # Seg Neutrophils % Seg Neutrophils # PT INR APTT Sodium Chloride 108.7 H Carbon Dioxide Glucose 72 L POC Glucose Calcium 7.6 L Total Creatine Kinase 251 H CK-MB (CK-2) 15.2 H CK-MB (CK-2) Rel Index 6.0 H Troponin T 0.151 H* NT-Pro-B Natriuret Pep 4673 H Total Protein 4.9 L Albumin 1.6 L LDL Cholesterol Direct HDL Cholesterol Urine WBC (Auto) Crossmatch See Detail 03/12/17 03/12/17 03/12/17 05:51 10:45 10:45 WBC RBC Hgb 7.4 L 8.5 L Hct 22.4 L 26.3 L RDW Plt Count Lymph % (Auto) Lymph # Tripp # Seg Neutrophils % Seg Neutrophils # PT INR APTT Sodium Chloride Carbon Dioxide Glucose POC Glucose Calcium Total Creatine Kinase 238 H CK-MB (CK-2) 12.7 H CK-MB (CK-2) Rel Index 5.3 H Troponin T 0.153 H* NT-Pro-B Natriuret Pep Total Protein Albumin LDL Cholesterol Direct HDL Cholesterol Urine WBC (Auto) Crossmatch 03/12/17 03/12/17 03/12/17 13:40 23:24 Unknown WBC RBC Hgb 8.2 L Hct 24.5 L RDW Plt Count Lymph % (Auto) Lymph # Tripp # Seg Neutrophils % Seg Neutrophils # PT INR APTT Sodium Chloride Carbon Dioxide Glucose POC Glucose 154 H Calcium Total Creatine Kinase 272 H CK-MB (CK-2) 16.4 H CK-MB (CK-2) Rel Index 6.0 H Troponin T 0.165 H* NT-Pro-B Natriuret Pep Total Protein Albumin LDL Cholesterol Direct 26 L HDL Cholesterol 34 L Urine WBC (Auto) Crossmatch 03/13/17 03/13/17 03/13/17 04:00 04:00 05:06 WBC 12.1 H RBC 2.57 L Hgb 7.8 L Hct 23.2 L RDW 16.7 H Plt Count 112 L Lymph % (Auto) 6.7 L Lymph # 0.8 L Tripp # 0.9 H Seg Neutrophils % 86.0 H Seg Neutrophils # 10.4 H PT INR APTT Sodium Chloride 108.1 H Carbon Dioxide Glucose 158 H POC Glucose 161 H Calcium 7.4 L Total Creatine Kinase CK-MB (CK-2) CK-MB (CK-2) Rel Index Troponin T NT-Pro-B Natriuret Pep Total Protein Albumin LDL Cholesterol Direct HDL Cholesterol Urine WBC (Auto) Crossmatch 03/13/17 03/13/17 03/13/17 11:52 17:19 21:14 WBC RBC Hgb Hct RDW Plt Count Lymph % (Auto) Lymph # Tripp # Seg Neutrophils % Seg Neutrophils # PT INR APTT Sodium Chloride Carbon Dioxide Glucose POC Glucose 206 H 136 H 120 H Calcium Total Creatine Kinase CK-MB (CK-2) CK-MB (CK-2) Rel Index Troponin T NT-Pro-B Natriuret Pep Total Protein Albumin LDL Cholesterol Direct HDL Cholesterol Urine WBC (Auto) Crossmatch 03/14/17 03/14/17 03/14/17 05:31 07:50 07:50 WBC RBC 2.35 L Hgb 7.1 L Hct 21.3 L RDW 16.8 H Plt Count 105 L Lymph % (Auto) Lymph # Tripp # Seg Neutrophils % Seg Neutrophils # PT INR APTT Sodium Chloride 110.4 H Carbon Dioxide Glucose 103 H POC Glucose 125 H Calcium 7.2 L Total Creatine Kinase CK-MB (CK-2) CK-MB (CK-2) Rel Index Troponin T NT-Pro-B Natriuret Pep Total Protein Albumin LDL Cholesterol Direct HDL Cholesterol Urine WBC (Auto) Crossmatch 03/14/17 03/14/17 03/14/17 11:51 16:10 22:10 WBC RBC Hgb 7.7 L Hct 23.3 L RDW Plt Count Lymph % (Auto) Lymph # Tripp # Seg Neutrophils % Seg Neutrophils # PT INR APTT Sodium Chloride Carbon Dioxide Glucose POC Glucose 135 H 144 H Calcium Total Creatine Kinase CK-MB (CK-2) CK-MB (CK-2) Rel Index Troponin T NT-Pro-B Natriuret Pep Total Protein Albumin LDL Cholesterol Direct HDL Cholesterol Urine WBC (Auto) Crossmatch 03/15/17 03/15/17 03/15/17 05:10 05:10 08:15 WBC RBC 2.46 L Hgb 7.6 L Hct 22.2 L RDW 16.2 H Plt Count 86 L Lymph % (Auto) Lymph # Tripp # Seg Neutrophils % Seg Neutrophils # PT INR APTT Sodium 147 H Chloride 113.0 H Carbon Dioxide 21 L Glucose 122 H POC Glucose 119 H Calcium 6.9 L Total Creatine Kinase CK-MB (CK-2) CK-MB (CK-2) Rel Index Troponin T NT-Pro-B Natriuret Pep Total Protein Albumin LDL Cholesterol Direct HDL Cholesterol Urine WBC (Auto) Crossmatch 03/15/17 03/15/17 11:55 11:57 WBC RBC Hgb 7.8 L Hct 23.1 L RDW Plt Count Lymph % (Auto) Lymph # Tripp # Seg Neutrophils % Seg Neutrophils # PT INR APTT Sodium Chloride Carbon Dioxide Glucose POC Glucose 130 H Calcium Total Creatine Kinase CK-MB (CK-2) CK-MB (CK-2) Rel Index Troponin T NT-Pro-B Natriuret Pep Total Protein Albumin LDL Cholesterol Direct HDL Cholesterol Urine WBC (Auto) Crossmatch Chest x-ray: report reviewed, image reviewed
[2017-03-15] MEDS: NACL 0.45% 1000 ML 1,000 ML IV SCH (17:02)
--- NOTE | 2017-03-15 18:18 | Progress Note ---
Assessment and Plan - GI bleed. Hemoglobin today 7.8. GI consult note reviewed Note. Still has melena stools. However remains hemodynamically stable. Plans to follow conservatively as patient had a colonoscopy in 09/2016. Rectal ulcerations identified at the time. We will transfuse 1 unit of PRBC Continue PPI - Hemorrhagic shock with Hypotension. Improved Secondary to acute GI bleeding Off Levophed Continue normal saline but will decrease to 75 mL/h as there is history of cardiomyopathy -Cardiomyopathy Stable with ejection fraction of 30-35%. Cardiology following. - Pfib rate Controlled. - Hypothermia: Patient on heating blanket - Suspected c. DIFF COLITIS: Continue Levaquin and Flagyl - Dementia; stable Supportive care - Sacral and heel decubiti: POA. Wound care consult -DNR per family complex patient/decision-making Spent 35 minutes in direct patient care as well as in review of recommendations from the consultants, laboratory and radiological data Subjective Date of service: 03/15/17 Principal diagnosis: GI bleed Interval history: He has melena stool per patient's nurse who had just cleaned him up. Bilateral lower extremity wound dressing soaked. Objective - Constitutional Vitals: Vital Signs - 12hr 03/15/17 03/15/17 03/15/17 06:10 06:20 06:30 Temperature Pulse Rate 87 82 77 Pulse Rate [ Apical] Respiratory 16 14 14 Rate Blood Pressure 75/47 88/57 88/57 O2 Sat by Pulse 95 98 95 Oximetry 03/15/17 03/15/17 03/15/17 06:40 06:50 07:00 Temperature Pulse Rate 80 81 79 Pulse Rate [ Apical] Respiratory 15 12 14 Rate Blood Pressure 79/53 83/58 90/66 O2 Sat by Pulse 95 95 95 Oximetry 03/15/17 03/15/17 03/15/17 07:10 07:20 07:30 Temperature Pulse Rate 80 81 81 Pulse Rate [ Apical] Respiratory 12 14 14 Rate Blood Pressure 90/66 93/63 82/61 O2 Sat by Pulse 96 96 94 Oximetry 03/15/17 03/15/17 03/15/17 07:40 07:50 08:00 Temperature Pulse Rate 81 80 80 Pulse Rate [ Apical] Respiratory 12 13 16 Rate Blood Pressure 82/61 87/65 83/59 O2 Sat by Pulse 94 93 98 Oximetry 03/15/17 03/15/17 03/15/17 08:10 08:20 08:30 Temperature Pulse Rate 80 83 79 Pulse Rate [ Apical] Respiratory 13 12 14 Rate Blood Pressure 82/61 79/55 84/61 O2 Sat by Pulse 95 94 91 Oximetry 03/15/17 03/15/17 03/15/17 08:40 08:50 09:00 Temperature Pulse Rate 79 83 89 Pulse Rate [ Apical] Respiratory 14 19 15 Rate Blood Pressure 84/61 91/67 90/72 O2 Sat by Pulse 94 96 96 Oximetry 03/15/17 03/15/17 03/15/17 09:10 09:20 09:30 Temperature Pulse Rate 89 93 H 94 H Pulse Rate [ Apical] Respiratory 12 13 11 L Rate Blood Pressure 90/72 86/60 93/55 O2 Sat by Pulse 95 95 94 Oximetry 03/15/17 03/15/17 03/15/17 09:40 09:50 10:00 Temperature Pulse Rate 94 H 94 H 94 H Pulse Rate [ 90 Apical] Respiratory 11 L 7 L 20 Rate Blood Pressure 93/55 94/59 92/65 O2 Sat by Pulse 96 95 99 Oximetry 03/15/17 03/15/17 03/15/17 10:10 10:20 10:22 Temperature 97.5 F L Pulse Rate 90 90 Pulse Rate [ Apical] Respiratory 14 16 Rate Blood Pressure 92/65 100/66 O2 Sat by Pulse 96 97 Oximetry 03/15/17 03/15/17 03/15/17 10:30 10:40 10:50 Temperature Pulse Rate 91 H 85 85 Pulse Rate [ Apical] Respiratory 12 13 21 Rate Blood Pressure 102/65 102/65 87/59 O2 Sat by Pulse 96 96 97 Oximetry 03/15/17 03/15/17 03/15/17 11:00 11:10 11:20 Temperature Pulse Rate 88 86 Pulse Rate [ Apical] Respiratory 15 10 L Rate Blood Pressure 96/62 96/62 100/68 O2 Sat by Pulse 97 94 98 Oximetry 03/15/17 03/15/17 03/15/17 11:30 11:40 11:50 Temperature Pulse Rate 83 83 87 Pulse Rate [ Apical] Respiratory 12 17 13 Rate Blood Pressure 92/57 92/57 105/70 O2 Sat by Pulse 87 94 90 Oximetry 03/15/17 03/15/17 03/15/17 12:00 12:10 12:20 Temperature Pulse Rate 87 81 83 Pulse Rate [ 94 H Apical] Respiratory 17 15 16 Rate Blood Pressure 105/70 92/61 95/69 O2 Sat by Pulse 99 97 96 Oximetry 03/15/17 03/15/17 03/15/17 12:30 12:40 12:50 Temperature Pulse Rate 75 80 79 Pulse Rate [ Apical] Respiratory 14 16 14 Rate Blood Pressure 95/68 95/68 87/67 O2 Sat by Pulse 97 97 97 Oximetry 03/15/17 03/15/17 03/15/17 12:57 13:00 13:10 Temperature 97.6 F Pulse Rate 72 77 Pulse Rate [ Apical] Respiratory 16 14 Rate Blood Pressure 99/63 99/63 O2 Sat by Pulse 98 98 Oximetry 03/15/17 03/15/17 03/15/17 13:20 13:30 13:40 Temperature Pulse Rate 81 76 77 Pulse Rate [ Apical] Respiratory 18 14 16 Rate Blood Pressure 90/65 91/64 91/64 O2 Sat by Pulse 96 99 99 Oximetry 03/15/17 03/15/17 03/15/17 13:50 14:00 14:10 Temperature Pulse Rate 87 87 94 H Pulse Rate [ 96 H Apical] Respiratory 14 15 21 Rate Blood Pressure 98/62 105/73 105/73 O2 Sat by Pulse 100 99 99 Oximetry 03/15/17 03/15/17 03/15/17 14:20 14:30 14:40 Temperature Pulse Rate 97 H 95 H 93 H Pulse Rate [ Apical] Respiratory 17 11 L 11 L Rate Blood Pressure 103/78 103/78 103/78 O2 Sat by Pulse 99 98 99 Oximetry 03/15/17 03/15/17 03/15/17 14:50 15:00 15:10 Temperature Pulse Rate 94 H 86 92 H Pulse Rate [ Apical] Respiratory 22 17 20 Rate Blood Pressure 97/79 107/81 107/81 O2 Sat by Pulse 100 98 100 Oximetry 03/15/17 03/15/17 03/15/17 15:20 15:30 15:40 Temperature Pulse Rate 93 H 88 108 H Pulse Rate [ Apical] Respiratory 17 13 17 Rate Blood Pressure 107/81 94/70 94/70 O2 Sat by Pulse 98 99 94 Oximetry 03/15/17 03/15/17 03/15/17 15:50 16:00 16:10 Temperature Pulse Rate 80 79 77 Pulse Rate [ Apical] Respiratory 13 14 11 L Rate Blood Pressure 85/61 80/48 80/48 O2 Sat by Pulse 99 97 98 Oximetry 03/15/17 03/15/17 03/15/17 16:20 16:24 16:30 Temperature 97.2 F L Pulse Rate 73 79 Pulse Rate [ Apical] Respiratory 14 13 Rate Blood Pressure 88/54 83/52 O2 Sat by Pulse 96 97 Oximetry 03/15/17 03/15/17 03/15/17 16:40 16:50 17:00 Temperature Pulse Rate 76 74 79 Pulse Rate [ Apical] Respiratory 16 11 L 15 Rate Blood Pressure 83/52 80/54 87/59 O2 Sat by Pulse 99 99 100 Oximetry 03/15/17 17:10 Temperature Pulse Rate 74 Pulse Rate [ Apical] Respiratory 12 Rate Blood Pressure 87/59 O2 Sat by Pulse 100 Oximetry General appearance: Present: no acute distress, well-nourished - EENT Eyes: PERRL, EOM intact - Neck Neck: supple, normal ROM - Respiratory Respiratory effort: normal Respiratory: bilateral: CTA - Cardiovascular Rhythm: regular Heart Sounds: Present: S1 & S2. Absent: gallop, rub Extremities: pulses intact, No edema, normal color, Full ROM - Gastrointestinal General gastrointestinal: Present: soft, non-tender, non-distended, normal bowel sounds - Genitourinary Male genitourinary: normal - Integumentary Integumentary: clear, warm, dry - Musculoskeletal Musculoskeletal: 1, strength equal bilaterally - Neurologic Neurologic: moves all extremities - Psychiatric Psychiatric: memory intact, appropriate mood/affect, intact judgment & insight - Labs CBC & Chem 7: 03/15/17 11:55 03/15/17 05:10 Labs: Abnormal lab results 03/11/17 03/14/17 03/14/17 Range/Units 22:59 11:51 16:10 RBC (3.65-5.03) M/mm3 Hgb (11.8-15.2) gm/dl Hct (35.5-45.6) % RDW (13.2-15.2) % Plt Count (140-440) K/mm3 Sodium (137-145) mmol/L Chloride (98-107) mmol/L Carbon Dioxide (22-30) mmol/L Glucose (75-100) mg/dL POC Glucose 135 H 144 H (70-105) Calcium (8.4-10.2) mg/dL Crossmatch See Detail 03/14/17 03/15/17 03/15/17 Range/Units 22:10 05:10 05:10 RBC 2.46 L (3.65-5.03) M/mm3 Hgb 7.7 L 7.6 L (11.8-15.2) gm/dl Hct 23.3 L 22.2 L (35.5-45.6) % RDW 16.2 H (13.2-15.2) % Plt Count 86 L (140-440) K/mm3 Sodium 147 H (137-145) mmol/L Chloride 113.0 H (98-107) mmol/L Carbon Dioxide 21 L (22-30) mmol/L Glucose 122 H (75-100) mg/dL POC Glucose (70-105) Calcium 6.9 L (8.4-10.2) mg/dL Crossmatch 03/15/17 03/15/17 03/15/17 Range/Units 08:15 11:55 11:57 RBC (3.65-5.03) M/mm3 Hgb 7.8 L (11.8-15.2) gm/dl Hct 23.1 L (35.5-45.6) % RDW (13.2-15.2) % Plt Count (140-440) K/mm3 Sodium (137-145) mmol/L Chloride (98-107) mmol/L Carbon Dioxide (22-30) mmol/L Glucose (75-100) mg/dL POC Glucose 119 H 130 H (70-105) Calcium (8.4-10.2) mg/dL Crossmatch 03/15/17 Range/Units 17:10 RBC (3.65-5.03) M/mm3 Hgb (11.8-15.2) gm/dl Hct (35.5-45.6) % RDW (13.2-15.2) % Plt Count (140-440) K/mm3 Sodium (137-145) mmol/L Chloride (98-107) mmol/L Carbon Dioxide (22-30) mmol/L Glucose (75-100) mg/dL POC Glucose 123 H (70-105) Calcium (8.4-10.2) mg/dL Crossmatch
[2017-03-15] MEDS: COREG PO SCH (22:41)
[2017-03-16] MEDS ORDERED: NITRO DUR TD SCH (06:00)
[2017-03-16] MEDS: SYNTHROID PO SCH (07:05)
--- NOTE | 2017-03-16 08:41 | Progress Note ---
Assessment and Plan - GI bleed. Hemoglobin today 7.8. GI consult note reviewed Note. Still has melena stools. However remains hemodynamically stable. Plans to follow conservatively as patient had a colonoscopy in 09/2016. Rectal ulcerations identified at the time. We will transfuse 1 more unit of PRBC Continue PPI - Hemorrhagic shock with Hypotension. Improved Secondary to acute GI bleeding Off Levophed Continue normal saline but will decrease to 75 mL/h as there is history of cardiomyopathy -Cardiomyopathy Stable with ejection fraction of 30-35%. Cardiology following. - Pfib rate Controlled. - Hypothermia: Patient on heating blanket - Suspected c. DIFF COLITIS: Continue Levaquin and Flagyl - Dementia: stable Supportive care - Sacral and heel decubiti: POA. Wound care consult -DNR per family complex patient/decision-making Spent 33 minutes in direct patient care as well as in review of recommendations from the consultants, laboratory and radiological data Subjective Date of service: 03/16/17 Principal diagnosis: GI bleed Interval history: Pt seen and examined. reviewed lab and rdiological data. discussed with pt nurse. Still having melena stool Objective - Constitutional Vitals: Vital Signs - 12hr 03/15/17 03/15/17 03/15/17 21:00 22:00 22:10 Temperature Pulse Rate 77 72 74 Respiratory 15 11 L 14 Rate Blood Pressure 94/68 101/69 101/69 O2 Sat by Pulse 99 100 99 Oximetry 03/15/17 03/15/17 03/16/17 22:41 23:00 00:00 Temperature 98.8 F Pulse Rate 74 72 69 Respiratory 14 11 L Rate Blood Pressure 101/69 82/64 91/69 O2 Sat by Pulse 100 47 L Oximetry 03/16/17 03/16/17 03/16/17 01:00 02:00 03:00 Temperature Pulse Rate 70 70 79 Respiratory 11 L 12 19 Rate Blood Pressure 82/62 84/66 92/74 O2 Sat by Pulse 63 L 100 Oximetry 03/16/17 03/16/17 03/16/17 04:00 05:00 06:00 Temperature 98.8 F Pulse Rate 78 80 72 Respiratory 20 20 16 Rate Blood Pressure 92/74 97/63 104/69 O2 Sat by Pulse 100 100 Oximetry 03/16/17 03/16/17 03/16/17 06:01 07:00 08:00 Temperature Pulse Rate 80 69 75 Respiratory 19 27 H Rate Blood Pressure 97/66 92/64 O2 Sat by Pulse 100 100 Oximetry General appearance: Present: no acute distress, well-nourished - EENT Eyes: PERRL, EOM intact - Neck Neck: supple, normal ROM - Respiratory Respiratory effort: normal Respiratory: bilateral: diminished - Cardiovascular Rhythm: regular Heart Sounds: Present: S1 & S2. Absent: gallop, rub Extremities: pulses intact, No edema, normal color, Full ROM Extremity abnormal: other (ulcer in both ankles) - Gastrointestinal General gastrointestinal: Present: soft, non-tender, non-distended, normal bowel sounds - Integumentary Integumentary: clear, warm, dry, erythema (decubetous ulcer on gerard sacrum) - Neurologic Neurologic: moves all extremities - Psychiatric Psychiatric: memory intact, appropriate mood/affect, intact judgment & insight - Labs CBC & Chem 7: 03/15/17 11:55 03/15/17 05:10 Labs: Abnormal lab results 03/15/17 03/15/17 03/15/17 Range/Units 11:55 11:57 17:10 Hgb 7.8 L (11.8-15.2) gm/dl Hct 23.1 L (35.5-45.6) % POC Glucose 130 H 123 H (70-105) 03/15/17 Range/Units 21:35 Hgb (11.8-15.2) gm/dl Hct (35.5-45.6) % POC Glucose 145 H (70-105)
[2017-03-16 09:25] LABS: Basophils % (Auto) 0.1 % (0.0-1.8); Eosinophils # (Auto) 0.1 K/mm3 (0.0-0.4); Eosinophils % (Auto) 1.5 % (0.0-4.3); Hematocrit 22.5 % (35.5-45.6); Hemoglobin 7.5 gm/dl (11.8-15.2); Lymphocytes # (Auto) 0.9 K/mm3 (1.2-5.4); Lymphocytes % (Auto) 10.6 % (13.4-35.0); Mean Corpuscular HGB Conc 33 % (32-34); Mean Corpuscular Hemoglobin 30 pg (28-32); Mean Corpuscular Volume 90 fl (84-94); Monocytes # (Auto) 0.7 K/mm3 (0.0-0.8); Monocytes % (Auto) 8.3 % (0.0-7.3); Red Blood Count 2.51 M/mm3 (3.65-5.03); Red Cell Distribution Width 16.2 % (13.2-15.2)
[2017-03-16 09:40] LABS: BUN/Creatinine Ratio 13; Blood Urea Nitrogen 13 mg/dL (9-20); Calcium 7.3 mg/dL (8.4-10.2); Hemolysis Index 2
[2017-03-16 09:42] LABS: Platelet Count 80 K/mm3 (140-440)
--- NOTE | 2017-03-16 10:13 | Progress Note ---
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 suggesting possible undersensing Permanent atrial fibrillation on coumadin as outpatient - currently on hold Non-specific troponin Hypotension Recommendations: Continue supportive care Monitor H/H closely Pacemaker interrogation Continue to hold anticoagulants and dual antiplatelet therapy Will continue to follow Subjective Date of service: 03/16/17 Principal diagnosis: GI bleed Interval history: Patient is doing well this morning He denies chest pain or shortness of breath Tele is showing rate controlled afib, with irregular pacemaker spikes Objective Vital Signs Temp Pulse Pulse Resp BP Pulse Ox 03/16/17 08:00 98.6 F 75 27 H 92/64 100 03/16/17 07:00 69 19 97/66 100 03/16/17 06:01 80 03/16/17 06:00 72 16 104/69 03/16/17 05:00 80 20 97/63 100 03/16/17 04:00 98.8 F 78 20 92/74 100 03/16/17 03:00 79 19 92/74 03/16/17 02:00 70 12 84/66 100 03/16/17 01:00 70 11 L 82/62 63 L 03/16/17 00:00 98.8 F 69 11 L 91/69 47 L 03/15/17 23:00 72 14 82/64 100 03/15/17 22:41 74 101/69 03/15/17 22:10 74 14 101/69 99 03/15/17 22:00 72 11 L 101/69 100 03/15/17 21:00 77 15 94/68 99 03/15/17 20:00 82 18 95/67 100 03/15/17 19:57 98.6 F 03/15/17 19:00 81 17 94/60 100 03/15/17 18:40 73 11 L 77/51 100 03/15/17 18:30 73 10 L 77/51 95 03/15/17 18:20 75 11 L 76/48 100 03/15/17 18:10 74 10 L 84/60 100 03/15/17 18:00 81 82 14 84/60 99 03/15/17 17:50 72 13 78/53 100 03/15/17 17:40 73 13 70/55 100 03/15/17 17:30 75 12 70/55 100 03/15/17 17:20 77 13 77/51 100 03/15/17 17:10 74 12 87/59 100 03/15/17 17:00 79 15 87/59 100 03/15/17 16:50 74 11 L 80/54 99 03/15/17 16:40 76 16 83/52 99 03/15/17 16:30 79 13 83/52 97 03/15/17 16:24 97.2 F L 03/15/17 16:20 73 14 88/54 96 03/15/17 16:10 77 11 L 80/48 98 03/15/17 16:00 79 79 18 80/48 100 03/15/17 15:50 80 13 85/61 99 03/15/17 15:40 108 H 17 94/70 94 03/15/17 15:30 88 13 94/70 99 03/15/17 15:20 93 H 17 107/81 98 03/15/17 15:10 92 H 20 107/81 100 03/15/17 15:00 86 17 107/81 98 03/15/17 14:50 94 H 22 97/79 100 03/15/17 14:40 93 H 11 L 103/78 99 03/15/17 14:30 95 H 11 L 103/78 98 03/15/17 14:20 97 H 17 103/78 99 03/15/17 14:10 94 H 21 105/73 99 03/15/17 14:00 87 96 H 15 105/73 99 03/15/17 13:50 87 14 98/62 100 03/15/17 13:40 77 16 91/64 99 03/15/17 13:30 76 14 91/64 99 03/15/17 13:20 81 18 90/65 96 03/15/17 13:10 77 14 99/63 98 03/15/17 13:00 72 16 99/63 98 03/15/17 12:57 97.6 F 03/15/17 12:50 79 14 87/67 97 03/15/17 12:40 80 16 95/68 97 03/15/17 12:30 75 14 95/68 97 03/15/17 12:20 83 16 95/69 96 03/15/17 12:10 81 15 92/61 97 03/15/17 12:00 87 94 H 17 105/70 99 03/15/17 11:50 87 13 105/70 90 03/15/17 11:40 83 17 92/57 94 03/15/17 11:30 83 12 92/57 87 03/15/17 11:20 86 10 L 100/68 98 03/15/17 11:10 96/62 94 03/15/17 11:00 88 15 96/62 97 03/15/17 10:50 85 21 87/59 97 03/15/17 10:40 85 13 102/65 96 03/15/17 10:30 91 H 12 102/65 96 03/15/17 10:22 97.5 F L 03/15/17 10:20 90 16 100/66 97 - Physical Examination General: No Apparent Distress HEENT: Positive: PERRL Neck: Positive: neck supple Cardiac: Positive: irregularly irregular Lungs: Positive: Normal Exam Neuro: Positive: Grossly Intact Abdomen: Positive: Soft Skin: Positive: Clear Extremities: Absent: edema - Labs and Meds CBC 03/15/17 03/16/17 Range/Units 11:55 09:06 WBC 8.3 (4.5-11.0) K/mm3 RBC 2.51 L (3.65-5.03) M/mm3 Hgb 7.8 L 7.5 L (11.8-15.2) gm/dl Hct 23.1 L 22.5 L (35.5-45.6) % Plt Count 80 L (140-440) K/mm3 Lymph # 0.9 L (1.2-5.4) K/mm3 [place] # 0.7 (0.0-0.8) K/mm3 Eos # 0.1 (0.0-0.4) K/mm3 Baso # 0.0 (0.0-0.1) K/mm3 Comprehensive Metabolic Panel 03/16/17 Range/Units 09:06 Sodium 145 (137-145) mmol/L Potassium 3.3 L (3.6-5.0) mmol/L Chloride 111.5 H (98-107) mmol/L Carbon Dioxide 22 (22-30) mmol/L BUN 13 (9-20) mg/dL Creatinine 1.0 (0.8-1.5) mg/dL Glucose 110 H (75-100) mg/dL Calcium 7.3 L (8.4-10.2) mg/dL
[2017-03-16] MEDS: NOVOLOG SUB-Q SCH ×4 (10:19→23:46)
--- NOTE | 2017-03-16 10:28 | Gastroenterology Progress Note ---
Assessment and Plan 1.GI bleed -HGB 7.5- stable -BM x 1 this am with brown stool streaked with dark maroon blood per nursing -currently hemodynamically stable -off levophed -continue to monitor H/H and transfuse as needed -last colonoscopy 09/2016 with rectal ulcer -ensure adequate BMs with daily bowel regimen -currently pt wishes to not undergo any invasive procedures and is refusing a repeat colonoscopy -continue supportive care -will follow Subjective Date of service: 03/16/17 Principal diagnosis: GI bleed Interval history: Patient resting in bed. No acute distress. BM x 1 this am with brown stool streaked with dark maroon blood per nursing. Objective - Constitutional Vitals: Temp Pulse Resp BP Pulse Ox 98.6 F 75 27 H 92/64 100 03/16/17 08:00 03/16/17 08:00 03/16/17 08:00 03/16/17 08:00 03/16/17 08:00 General appearance: no acute distress - EENT Eyes: PERRL, EOM intact ENT: hearing intact - Respiratory Respiratory: bilateral: diminished - Cardiovascular Rhythm: irregularly irregular Heart Sounds: Present: S1 & S2 - Gastrointestinal General gastrointestinal: Present: soft, non-tender, non-distended, normal bowel sounds - Psychiatric Psychiatric: appropriate mood/affect, cooperative - Labs CBC & Chem 7: 03/16/17 09:06 03/16/17 09:06 Labs: Laboratory Results - last 24 hr 03/15/17 03/15/17 03/15/17 11:55 11:57 17:10 WBC RBC Hgb 7.8 L Hct 23.1 L MCV MCH MCHC RDW Plt Count Lymph % (Auto) [place] % (Auto) Eos % (Auto) Baso % (Auto) Lymph # [place] # Eos # Baso # Seg Neutrophils % Seg Neutrophils # Sodium Potassium Chloride Carbon Dioxide Anion Gap BUN Creatinine Estimated GFR BUN/Creatinine Ratio Glucose POC Glucose 130 H 123 H Calcium 03/15/17 03/16/17 03/16/17 21:35 09:06 09:06 WBC 8.3 RBC 2.51 L Hgb 7.5 L Hct 22.5 L MCV 90 MCH 30 MCHC 33 RDW 16.2 H Plt Count 80 L Lymph % (Auto) 10.6 L [place] % (Auto) 8.3 H Eos % (Auto) 1.5 Baso % (Auto) 0.1 Lymph # 0.9 L [place] # 0.7 Eos # 0.1 Baso # 0.0 Seg Neutrophils % 79.5 H Seg Neutrophils # 6.6 Sodium 145 Potassium 3.3 L Chloride 111.5 H Carbon Dioxide 22 Anion Gap 15 BUN 13 Creatinine 1.0 Estimated GFR > 60 BUN/Creatinine Ratio 13 Glucose 110 H POC Glucose 145 H Calcium 7.3 L
[2017-03-16] MEDS: THERAGRAN-M Tab PO SCH (11:28)
[2017-03-16] MEDS: TYLENOL PO PRN (11:28)
[2017-03-16] MEDS: COREG PO SCH ×2 (12:09→23:45)
--- NOTE | 2017-03-16 14:15 | Progress Note ---
Assessment and Plan Imp: 1. GI bleed 2. Acute blood loss anemia 3. Hemorrhagic shock 4. Cardiomyopathy 5. P-afib 5. Dementia per chart 6. Hypernatremia Rec: 1. H/H stable; monitor 2. F/u GI recs 3. Stable off Levophed; d/c NTG patch due to hypotension 4. Changed to 1/2 NS for hypernatremia 5. DVT PPx 6. Family has made him DNR/DNI; complex patient/decision-making No family present Subjective Date of service: 03/16/17 Principal diagnosis: GI bleed Interval history: Had 1 brown stool this AM with a little maroon blood. BP still borderline low but has not required pressors. Awake, alert, no complaints except back and leg pain. Active Medications Acetaminophen (Tylenol) 650 mg PO Q4H PRN PRN Reason: Pain MILD(1-3)/Fever >100.5/GUAJARDO Last Admin: 03/16/17 11:28 Dose: 650 mg Carvedilol (Coreg) 3.125 mg PO BID [facility] Last Admin: 03/16/17 12:09 Dose: Not Given Heparin Sodium (Porcine) (Heparin) 5,000 unit SUB-Q Q12HR [facility] Last Admin: 03/15/17 22:41 Dose: 5,000 unit Norepinephrine 8 mg/ Sodium (Chloride) 250 mls @ 3.75 mls/hr IV TITR CORNELIO; 2 MCG /MIN PRN Reason: Protocol Last Titration: 03/15/17 17:03 Dose: 0 mcg/min, 0 mls/hr Sodium Chloride (Nacl 0.45% 1000 Ml) 1,000 mls @ 75 mls/hr IV DIRECT [facility] Last Admin: 03/15/17 17:02 Dose: 75 mls/hr Insulin Aspart (Novolog) 0 units SUB-Q ACHS CORNELIO PRN Reason: Protocol Last Admin: 03/16/17 11:31 Dose: Not Given Levothyroxine Sodium (Synthroid) 200 mcg PO DAILY@0600 [facility] Last Admin: 03/16/17 07:05 Dose: 200 mcg Multivitamins/Minerals (Theragran-M Tab) 1 each PO QDAY [facility] Last Admin: 03/16/17 11:28 Dose: 1 each Nitroglycerin (Nitro Dur) 0.1 mg TD QDAY@0600 [facility] Last Admin: 03/16/17 07:05 Dose: 0.1 mg Ondansetron HCl (Zofran) 4 mg IV Q8H PRN PRN Reason: N/V unrelieved by Reglan Senna/Docusate Sodium (Senokot S) 2 tab PO QHS CORNELIO Last Admin: 03/15/17 22:16 Dose: Not Given Objective Vital Signs - 12hr 03/16/17 03/16/17 03/16/17 03:00 04:00 05:00 Temperature 98.8 F Pulse Rate 79 78 80 Respiratory 19 20 20 Rate Blood Pressure 92/74 92/74 97/63 O2 Sat by Pulse 100 100 Oximetry 03/16/17 03/16/17 03/16/17 06:00 06:01 07:00 Temperature Pulse Rate 72 80 69 Respiratory 16 19 Rate Blood Pressure 104/69 97/66 O2 Sat by Pulse 100 Oximetry 03/16/17 03/16/17 08:00 12:00 Temperature 98.6 F 98.7 F Pulse Rate 75 Respiratory 27 H Rate Blood Pressure 92/64 O2 Sat by Pulse 100 Oximetry Constitutional: no acute distress, alert Eyes: non-icteric ENT: oropharynx moist Neck: other (rigid in all directions) Effort: normal Ascultation: Bilateral: clear Cardiovascular: regular rate and rhythm (no mrg) Gastrointestinal: normoactive bowel sounds, soft, non-tender, non-distended Integumentary: decubitus ulcer Extremities: edema (1+ bilateral LE edema), other (contracture deformities of upper and lower extremities) Neurologic: pupils equal and round, CN II-XII normal, other (awake, alert, follows commands, answers questions) Psychiatric: mood appropriate, affect normal CBC and BMP: 03/16/17 09:06 03/16/17 09:06 ABG, PT/INR, D-dimer: PT/INR, D-dimer PT 22.3 Sec. (12.2-14.9) H 03/11/17 22:59 INR 1.84 (0.87-1.13) H 03/11/17 22:59 Abnormal lab findings: Abnormal Labs 03/11/17 03/11/17 03/11/17 00:10 22:59 22:59 WBC RBC 2.40 L Hgb 7.2 L Hct 22.1 L RDW 18.0 H Plt Count 104 L Lymph % (Auto) [place] % (Auto) Lymph # [place] # Seg Neutrophils % Seg Neutrophils # PT 22.3 H INR 1.84 H APTT 52.8 H Sodium Potassium Chloride Carbon Dioxide Glucose POC Glucose Calcium Total Creatine Kinase CK-MB (CK-2) CK-MB (CK-2) Rel Index Troponin T NT-Pro-B Natriuret Pep Total Protein Albumin LDL Cholesterol Direct HDL Cholesterol Urine WBC (Auto) 142.0 H Crossmatch 03/11/17 03/11/17 03/12/17 22:59 22:59 05:51 WBC RBC Hgb Hct RDW Plt Count Lymph % (Auto) [place] % (Auto) Lymph # [place] # Seg Neutrophils % Seg Neutrophils # PT INR APTT Sodium Potassium Chloride 108.7 H Carbon Dioxide Glucose 72 L POC Glucose Calcium 7.6 L Total Creatine Kinase 251 H CK-MB (CK-2) 15.2 H CK-MB (CK-2) Rel Index 6.0 H Troponin T 0.151 H* NT-Pro-B Natriuret Pep 4673 H Total Protein 4.9 L Albumin 1.6 L LDL Cholesterol Direct HDL Cholesterol Urine WBC (Auto) Crossmatch See Detail 03/12/17 03/12/17 03/12/17 05:51 10:45 10:45 WBC RBC Hgb 7.4 L 8.5 L Hct 22.4 L 26.3 L RDW Plt Count Lymph % (Auto) [place] % (Auto) Lymph # [place] # Seg Neutrophils % Seg Neutrophils # PT INR APTT Sodium Potassium Chloride Carbon Dioxide Glucose POC Glucose Calcium Total Creatine Kinase 238 H CK-MB (CK-2) 12.7 H CK-MB (CK-2) Rel Index 5.3 H Troponin T 0.153 H* NT-Pro-B Natriuret Pep Total Protein Albumin LDL Cholesterol Direct HDL Cholesterol Urine WBC (Auto) Crossmatch 03/12/17 03/12/17 03/12/17 13:40 23:24 Unknown WBC RBC Hgb 8.2 L Hct 24.5 L RDW Plt Count Lymph % (Auto) [place] % (Auto) Lymph # [place] # Seg Neutrophils % Seg Neutrophils # PT INR APTT Sodium Potassium Chloride Carbon Dioxide Glucose POC Glucose 154 H Calcium Total Creatine Kinase 272 H CK-MB (CK-2) 16.4 H CK-MB (CK-2) Rel Index 6.0 H Troponin T 0.165 H* NT-Pro-B Natriuret Pep Total Protein Albumin LDL Cholesterol Direct 26 L HDL Cholesterol 34 L Urine WBC (Auto) Crossmatch 03/13/17 03/13/17 03/13/17 04:00 04:00 05:06 WBC 12.1 H RBC 2.57 L Hgb 7.8 L Hct 23.2 L RDW 16.7 H Plt Count 112 L Lymph % (Auto) 6.7 L [place] % (Auto) Lymph # 0.8 L [place] # 0.9 H Seg Neutrophils % 86.0 H Seg Neutrophils # 10.4 H PT INR APTT Sodium Potassium Chloride 108.1 H Carbon Dioxide Glucose 158 H POC Glucose 161 H Calcium 7.4 L Total Creatine Kinase CK-MB (CK-2) CK-MB (CK-2) Rel Index Troponin T NT-Pro-B Natriuret Pep Total Protein Albumin LDL Cholesterol Direct HDL Cholesterol Urine WBC (Auto) Crossmatch 03/13/17 03/13/17 03/13/17 11:52 17:19 21:14 WBC RBC Hgb Hct RDW Plt Count Lymph % (Auto) [place] % (Auto) Lymph # [place] # Seg Neutrophils % Seg Neutrophils # PT INR APTT Sodium Potassium Chloride Carbon Dioxide Glucose POC Glucose 206 H 136 H 120 H Calcium Total Creatine Kinase CK-MB (CK-2) CK-MB (CK-2) Rel Index Troponin T NT-Pro-B Natriuret Pep Total Protein Albumin LDL Cholesterol Direct HDL Cholesterol Urine WBC (Auto) Crossmatch 03/14/17 03/14/17 03/14/17 05:31 07:50 07:50 WBC RBC 2.35 L Hgb 7.1 L Hct 21.3 L RDW 16.8 H Plt Count 105 L Lymph % (Auto) [place] % (Auto) Lymph # [place] # Seg Neutrophils % Seg Neutrophils # PT INR APTT Sodium Potassium Chloride 110.4 H Carbon Dioxide Glucose 103 H POC Glucose 125 H Calcium 7.2 L Total Creatine Kinase CK-MB (CK-2) CK-MB (CK-2) Rel Index Troponin T NT-Pro-B Natriuret Pep Total Protein Albumin LDL Cholesterol Direct HDL Cholesterol Urine WBC (Auto) Crossmatch 03/14/17 03/14/17 03/14/17 11:51 16:10 22:10 WBC RBC Hgb 7.7 L Hct 23.3 L RDW Plt Count Lymph % (Auto) [place] % (Auto) Lymph # [place] # Seg Neutrophils % Seg Neutrophils # PT INR APTT Sodium Potassium Chloride Carbon Dioxide Glucose POC Glucose 135 H 144 H Calcium Total Creatine Kinase CK-MB (CK-2) CK-MB (CK-2) Rel Index Troponin T NT-Pro-B Natriuret Pep Total Protein Albumin LDL Cholesterol Direct HDL Cholesterol Urine WBC (Auto) Crossmatch 03/15/17 03/15/17 03/15/17 05:10 05:10 08:15 WBC RBC 2.46 L Hgb 7.6 L Hct 22.2 L RDW 16.2 H Plt Count 86 L Lymph % (Auto) [place] % (Auto) Lymph # [place] # Seg Neutrophils % Seg Neutrophils # PT INR APTT Sodium 147 H Potassium Chloride 113.0 H Carbon Dioxide 21 L Glucose 122 H POC Glucose 119 H Calcium 6.9 L Total Creatine Kinase CK-MB (CK-2) CK-MB (CK-2) Rel Index Troponin T NT-Pro-B Natriuret Pep Total Protein Albumin LDL Cholesterol Direct HDL Cholesterol Urine WBC (Auto) Crossmatch 03/15/17 03/15/17 03/15/17 11:55 11:57 17:10 WBC RBC Hgb 7.8 L Hct 23.1 L RDW Plt Count Lymph % (Auto) [place] % (Auto) Lymph # [place] # Seg Neutrophils % Seg Neutrophils # PT INR APTT Sodium Potassium Chloride Carbon Dioxide Glucose POC Glucose 130 H 123 H Calcium Total Creatine Kinase CK-MB (CK-2) CK-MB (CK-2) Rel Index Troponin T NT-Pro-B Natriuret Pep Total Protein Albumin LDL Cholesterol Direct HDL Cholesterol Urine WBC (Auto) Crossmatch 03/15/17 03/16/17 03/16/17 21:35 09:06 09:06 WBC RBC 2.51 L Hgb 7.5 L Hct 22.5 L RDW 16.2 H Plt Count 80 L Lymph % (Auto) 10.6 L [place] % (Auto) 8.3 H Lymph # 0.9 L [place] # Seg Neutrophils % 79.5 H Seg Neutrophils # PT INR APTT Sodium Potassium 3.3 L Chloride 111.5 H Carbon Dioxide Glucose 110 H POC Glucose 145 H Calcium 7.3 L Total Creatine Kinase CK-MB (CK-2) CK-MB (CK-2) Rel Index Troponin T NT-Pro-B Natriuret Pep Total Protein Albumin LDL Cholesterol Direct HDL Cholesterol Urine WBC (Auto) Crossmatch Chest x-ray: report reviewed, image reviewed
[2017-03-16] MEDS: HEPARIN SUB-Q SCH ×2 (15:45→23:45)
[2017-03-16] MEDS: NACL 0.45% 1000 ML 1,000 ML IV SCH (21:08)
[2017-03-16] MEDS: SENOKOT S PO SCH (23:46)
[2017-03-17] MEDS: TYLENOL PO PRN ×2 (06:51→11:44)
[2017-03-17] MEDS: SYNTHROID PO SCH (06:52)
[2017-03-17 07:21] LABS: Basophils % (Auto) 0.1 % (0.0-1.8); Eosinophils # (Auto) 0.1 K/mm3 (0.0-0.4); Hemoglobin 8.2 gm/dl (11.8-15.2); Lymphocytes % (Auto) 13.1 % (13.4-35.0); Mean Corpuscular HGB Conc 33 % (32-34); Mean Corpuscular Hemoglobin 30 pg (28-32); Mean Corpuscular Volume 90 fl (84-94); Monocytes # (Auto) 0.5 K/mm3 (0.0-0.8); Monocytes % (Auto) 7.1 % (0.0-7.3); Red Blood Count 2.76 M/mm3 (3.65-5.03); Red Cell Distribution Width 16.7 % (13.2-15.2)
[2017-03-17 07:27] LABS: Platelet Count 77 K/mm3 (140-440)
[2017-03-17 07:31] LABS: Alanine Aminotransferase 9 units/L (7-56); Albumin 1.6 g/dL (3.9-5); BUN/Creatinine Ratio 14; Blood Urea Nitrogen 13 mg/dL (9-20); Calcium 7.2 mg/dL (8.4-10.2); Hemolysis Index 5
[2017-03-17] MEDS: NOVOLOG SUB-Q SCH ×4 (08:05→21:59)
--- NOTE | 2017-03-17 09:24 | Gastroenterology Progress Note ---
Assessment and Plan 1.GI bleed -HGB 8.2- trending up -no active signs of bleeding overnight or this am -continue to monitor H/H and transfuse as needed -last colonoscopy 09/2016 with rectal ulcer -ensure adequate BMs with daily bowel regimen -Pt wishes to not have any further invasive procedures, no plans for a repeat colonoscopy -continue supportive care -no further GI recommendations at this time -will sign off, please re-consult if needed Subjective Date of service: 03/17/17 Principal diagnosis: GI bleed Interval history: Patient resting in bed. No signs of active bleeding overnight or this am per pt and nursing. Objective - Constitutional Vitals: Temp Pulse Resp BP Pulse Ox 98.6 F 62 12 105/80 100 03/17/17 08:00 03/17/17 08:51 03/17/17 08:51 03/17/17 08:00 03/17/17 08:51 General appearance: no acute distress - EENT Eyes: PERRL, EOM intact ENT: hearing intact - Respiratory Respiratory: bilateral: diminished - Cardiovascular Rhythm: irregularly irregular Heart Sounds: Present: S1 & S2 - Gastrointestinal General gastrointestinal: Present: soft, non-tender, non-distended, normal bowel sounds - Neurologic Neurological: alert and oriented x3 - Psychiatric Psychiatric: cooperative - Labs CBC & Chem 7: 03/17/17 06:00 03/17/17 06:00 Labs: Laboratory Results - last 24 hr 03/16/17 03/16/17 03/16/17 07:52 09:06 09:06 WBC 8.3 RBC 2.51 L Hgb 7.5 L Hct 22.5 L MCV 90 MCH 30 MCHC 33 RDW 16.2 H Plt Count 80 L Lymph % (Auto) 10.6 L [place] % (Auto) 8.3 H Eos % (Auto) 1.5 Baso % (Auto) 0.1 Lymph # 0.9 L [place] # 0.7 Eos # 0.1 Baso # 0.0 Seg Neutrophils % 79.5 H Seg Neutrophils # 6.6 Sodium 145 Potassium 3.3 L Chloride 111.5 H Carbon Dioxide 22 Anion Gap 15 BUN 13 Creatinine 1.0 Estimated GFR > 60 BUN/Creatinine Ratio 13 Glucose 110 H POC Glucose 107 H Calcium 7.3 L Total Bilirubin AST ALT Alkaline Phosphatase Total Protein Albumin Albumin/Globulin Ratio 1203/16/17 03/16/17 10:53 16:05 22:18 WBC RBC Hgb Hct MCV MCH MCHC RDW Plt Count Lymph % (Auto) [place] % (Auto) Eos % (Auto) Baso % (Auto) Lymph # [place] # Eos # Baso # Seg Neutrophils % Seg Neutrophils # Sodium Potassium Chloride Carbon Dioxide Anion Gap BUN Creatinine Estimated GFR BUN/Creatinine Ratio Glucose POC Glucose 104 121 H 195 H Calcium Total Bilirubin AST ALT Alkaline Phosphatase Total Protein Albumin Albumin/Globulin Ratio 03/17/17 03/17/17 03/17/17 05:22 06:00 06:00 WBC 7.7 RBC 2.76 L Hgb 8.2 L Hct 25.0 L MCV 90 MCH 30 MCHC 33 RDW 16.7 H Plt Count 77 L Lymph % (Auto) 13.1 L [place] % (Auto) 7.1 Eos % (Auto) 1.0 Baso % (Auto) 0.1 Lymph # 1.0 L [place] # 0.5 Eos # 0.1 Baso # 0.0 Seg Neutrophils % 78.7 H Seg Neutrophils # 6.1 Sodium 143 Potassium 3.4 L Chloride 110.3 H Carbon Dioxide 22 Anion Gap 14 BUN 13 Creatinine 0.9 Estimated GFR > 60 BUN/Creatinine Ratio 14 Glucose 78 POC Glucose 106 H Calcium 7.2 L Total Bilirubin 0.80 AST 19 ALT 9 Alkaline Phosphatase 146 H Total Protein 4.6 L Albumin 1.6 L Albumin/Globulin Ratio 0.5
[2017-03-17] MEDS: HEPARIN SUB-Q SCH ×2 (09:34→22:38)
[2017-03-17] MEDS: THERAGRAN-M Tab PO SCH (09:34)
[2017-03-17] MEDS: NACL 0.45% 1000 ML 1,000 ML IV SCH (09:35)
[2017-03-17] MEDS: COREG PO SCH (09:36)
--- NOTE | 2017-03-17 11:37 | Progress Note ---
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 Patient is considered not a candidate for invasive cardiac workup. Medical therapy for CAD with topical nitrates and beta blockers as his blood pressure will allow. Subjective Date of service: 03/17/17 Principal diagnosis: GI bleed Interval history: Patient is resting in bed comfortably. Objective Vital Signs Temp Pulse Pulse Resp BP Pulse Ox 03/17/17 09:36 62 98/72 03/17/17 08:51 62 12 100 03/17/17 08:00 98.6 F 62 12 105/80 03/17/17 07:00 79 12 105/80 100 03/17/17 06:00 72 17 106/79 100 03/17/17 05:00 75 19 95/77 03/17/17 04:00 67 17 101/73 100 03/17/17 03:46 98.8 F 03/17/17 03:19 68 03/17/17 03:00 68 11 L 102/65 100 03/17/17 02:00 65 13 100/72 100 03/17/17 01:00 69 14 94/73 100 03/17/17 00:00 68 18 101/70 100 03/16/17 23:29 99.4 F 03/16/17 23:00 64 14 99/69 03/16/17 22:30 100 03/16/17 22:00 69 15 101/67 100 03/16/17 21:00 64 14 97/68 100 03/16/17 20:00 72 12 88/64 100 03/16/17 19:53 98.8 F 03/16/17 19:00 81 17 86/60 86 03/16/17 16:00 97.9 F 03/16/17 12:00 98.7 F - Physical Examination General: No Apparent Distress Cardiac: Positive: Other (paced) - Labs and Meds Cardiac Enzymes 03/17/17 Range/Units 06:00 AST 19 (5-40) units/L CBC 03/17/17 Range/Units 06:00 WBC 7.7 (4.5-11.0) K/mm3 RBC 2.76 L (3.65-5.03) M/mm3 Hgb 8.2 L (11.8-15.2) gm/dl Hct 25.0 L (35.5-45.6) % Plt Count 77 L (140-440) K/mm3 Lymph # 1.0 L (1.2-5.4) K/mm3 [place] # 0.5 (0.0-0.8) K/mm3 Eos # 0.1 (0.0-0.4) K/mm3 Baso # 0.0 (0.0-0.1) K/mm3 Comprehensive Metabolic Panel 03/17/17 Range/Units 06:00 Sodium 143 (137-145) mmol/L Potassium 3.4 L (3.6-5.0) mmol/L Chloride 110.3 H (98-107) mmol/L Carbon Dioxide 22 (22-30) mmol/L BUN 13 (9-20) mg/dL Creatinine 0.9 (0.8-1.5) mg/dL Glucose 78 (75-100) mg/dL Calcium 7.2 L (8.4-10.2) mg/dL AST 19 (5-40) units/L ALT 9 (7-56) units/L Alkaline Phosphatase 146 H (35-129) units/L Total Protein 4.6 L (6.3-8.2) g/dL Albumin 1.6 L (3.9-5) g/dL
--- NOTE | 2017-03-17 15:02 | Progress Note ---
Assessment and Plan Assessment and plan: 66 year old man with history of Afib, diabetes, coronary artery disease, prostate cancer, hypothyroidism, recent C. difficile was sent to the emergency room from the [facility] for evaluaion of altered mental status and rectal bleed. and hypotension pmh includes ICM, sp stent, EF 30%, sp Dual chamber PM, no longer on antiplatelet therapy Cardiovascular NICM, Systolic CHF, PAF dw cardiology, recommend, consertative management with beta lesley and statin, nitrates -optimize afterload reducing and beta lesley therapy. -For atrial fibrillation, optimize rate control. Not a candidate at this time for oral anticoagulation. GI bleed, -dw GI -last colonoscopy 09/2016 with rectal ulcer -ensure adequate BMs with daily bowel regimen -Pt wishes to not have any further invasive procedures, no plans for a repeat colonoscopy stable w/o further signs bleeding - ok to transfer to floor from GI standpoint GI has signed off Hypovolemic, Hemorrhagic Shock -resolved -Secondary to acute GI bleeding Off Levophed Acute blood loss anemia sp multiple transfusions hg stable now - Hypernatremia given hypotonic IVF - Hemorrhagic shock with Hypotension. Improved - No evidence of C diff colitis abx were dc - Dementia: stable Supportive care - Sacral and heel decubiti: POA. Wound care -DNR per family Tentative tranfer to med surg floor with remote telemetry today or tomorrow if stable The high probability of a clinically significant, sudden or life threatening deterioration of the [cvs, gi, cvs] system(s) required my full and direct attention, intervention and personal management. The aggregate critical care time was [44] minutes. This time is in addition to time spent performing reported procedures but includes the following: [] Data Review and interpretation [] Patient assessment and monitoring of vital signs [] Documentation [] Medication orders and management History Interval history: patient is calm, cooperaitive, denies sob, denies nausea or vomiting no fevers no chills no agitation, no focal weakness no bloody stool, no melena Hospitalist Physical - Constitutional Vitals: Temp Pulse Resp BP Pulse Ox 98.4 F 62 12 105/71 100 03/17/17 12:00 03/17/17 14:00 03/17/17 14:00 03/17/17 14:00 03/17/17 14:00 General appearance: Present: no acute distress, well-nourished - EENT Eyes: Present: PERRL ENT: hearing intact - Neck Neck: Present: supple - Respiratory Respiratory effort: normal Respiratory: bilateral: CTA - Cardiovascular Rhythm: regular - Extremities Extremities: no ischemia Peripheral Pulses: within normal limits - Abdominal General gastrointestinal: soft, non-tender - Integumentary Integumentary: Present: clear, warm (Sacral and heel decubiti) - Psychiatric Psychiatric: appropriate mood/affect, intact judgment & insight - Neurologic Neurologic: CNII-XII intact, moves all extremities Results - Labs CBC & Chem 7: 03/18/17 04:50 03/18/17 04:50 Labs: Laboratory Last Values WBC 7.7 K/mm3 (4.5-11.0) 03/17/17 06:00 RBC 2.76 M/mm3 (3.65-5.03) L 03/17/17 06:00 Hgb 8.2 gm/dl (11.8-15.2) L 03/17/17 06:00 Hct 25.0 % (35.5-45.6) L 03/17/17 06:00 MCV 90 fl (84-94) 03/17/17 06:00 MCH 30 pg (28-32) 03/17/17 06:00 MCHC 33 % (32-34) 03/17/17 06:00 RDW 16.7 % (13.2-15.2) H 03/17/17 06:00 Plt Count 77 K/mm3 (140-440) L 03/17/17 06:00 Lymph % (Auto) 13.1 % (13.4-35.0) L 03/17/17 06:00 [place] % (Auto) 7.1 % (0.0-7.3) 03/17/17 06:00 Eos % (Auto) 1.0 % (0.0-4.3) 03/17/17 06:00 Baso % (Auto) 0.1 % (0.0-1.8) 03/17/17 06:00 Lymph # 1.0 K/mm3 (1.2-5.4) L 03/17/17 06:00 [place] # 0.5 K/mm3 (0.0-0.8) 03/17/17 06:00 Eos # 0.1 K/mm3 (0.0-0.4) 03/17/17 06:00 Baso # 0.0 K/mm3 (0.0-0.1) 03/17/17 06:00 Seg Neutrophils % 78.7 % (40.0-70.0) H 03/17/17 06:00 Seg Neutrophils # 6.1 K/mm3 (1.8-7.7) 03/17/17 06:00 PT 22.3 Sec. (12.2-14.9) H 03/11/17 22:59 INR 1.84 (0.87-1.13) H 03/11/17 22:59 APTT 52.8 Sec. (24.2-36.6) H 03/11/17 22:59 Sodium 143 mmol/L (137-145) 03/17/17 06:00 Potassium 3.4 mmol/L (3.6-5.0) L 03/17/17 06:00 Chloride 110.3 mmol/L (98-107) H 03/17/17 06:00 Carbon Dioxide 22 mmol/L (22-30) 03/17/17 06:00 Anion Gap 14 mmol/L 03/17/17 06:00 BUN 13 mg/dL (9-20) 03/17/17 06:00 Creatinine 0.9 mg/dL (0.8-1.5) 03/17/17 06:00 Estimated GFR > 60 ml/min 03/17/17 06:00 BUN/Creatinine Ratio 14 % 03/17/17 06:00 Glucose 78 mg/dL (75-100) 03/17/17 06:00 POC Glucose 106 (70-105) H 03/17/17 05:22 Calcium 7.2 mg/dL (8.4-10.2) L 03/17/17 06:00 Total Bilirubin 0.80 mg/dL (0.1-1.2) 03/17/17 06:00 AST 19 units/L (5-40) 03/17/17 06:00 ALT 9 units/L (7-56) 03/17/17 06:00 Alkaline Phosphatase 146 units/L (35-129) H 03/17/17 06:00 Total Creatine Kinase 272 units/L (55-170) H 03/12/17 Unknown CK-MB (CK-2) 16.4 ng/mL (0.0-4.0) H 03/12/17 Unknown CK-MB (CK-2) Rel Index 6.0 (0-4) H 03/12/17 Unknown Troponin T 0.165 ng/mL (0.00-0.029) H* 03/12/17 Unknown NT-Pro-B Natriuret Pep 4673 pg/mL (0-900) H 03/11/17 22:59 Total Protein 4.6 g/dL (6.3-8.2) L 03/17/17 06:00 Albumin 1.6 g/dL (3.9-5) L 03/17/17 06:00 Albumin/Globulin Ratio 0.5 % 03/17/17 06:00 Triglycerides 34 mg/dL (2-149) 03/12/17 Unknown Cholesterol 66 mg/dL (50-199) 03/12/17 Unknown LDL Cholesterol Direct 26 mg/dL (50-130) L 03/12/17 Unknown HDL Cholesterol 34 mg/dL (40-59) L 03/12/17 Unknown Cholesterol/HDL Ratio 1.94 % 03/12/17 Unknown Urine Color Aide (Yellow) 03/11/17 00:10 Urine Turbidity Clear (Clear) 03/11/17 00:10 Urine pH 5.0 (5.0-7.0) 03/11/17 00:10 Ur Specific [place] 1.018 (1.003-1.030) 03/11/17 00:10 Urine Protein <15 mg/dl mg/dL (Negative) 03/11/17 00:10 Urine Glucose (UA) Neg mg/dL (Negative) 03/11/17 00:10 Urine Ketones Neg mg/dL (Negative) 03/11/17 00:10 Urine Blood Mod (Negative) 03/11/17 00:10 Urine Nitrite Pos (Negative) 03/11/17 00:10 Urine Bilirubin Neg (Negative) 03/11/17 00:10 Urine Urobilinogen < 2.0 mg/dL (<2.0) 03/11/17 00:10 Ur Leukocyte Esterase Lg (Negative) 03/11/17 00:10 Urine WBC (Auto) 142.0 /HPF (0.0-6.0) H 03/11/17 00:10 Urine RBC (Auto) 9.0 /HPF (0.0-6.0) 03/11/17 00:10 U Epithel Cells (Auto) < 1.0 /HPF (0-13.0) 03/11/17 00:10 Urine Bacteria (Auto) 4+ /HPF (Negative) 03/11/17 00:10 Urine Mucus 3+ /HPF 03/11/17 00:10 Urine Opiates Screen Presumptive negative 03/11/17 00:10 Urine Methadone Screen Presumptive negative 03/11/17 00:10 Ur Barbiturates Screen Presumptive negative 03/11/17 00:10 Ur Phencyclidine Scrn Presumptive negative 03/11/17 00:10 Ur Amphetamines Screen Presumptive positive 03/11/17 00:10 U Benzodiazepines Scrn Presumptive negative 03/11/17 00:10 Urine Cocaine Screen Presumptive negative 03/11/17 00:10 U Marijuana (THC) Screen Presumptive negative 03/11/17 00:10 Drugs of Abuse Note Disclamer 03/11/17 00:10 Blood Type O POSITIVE 03/11/17 22:59 Antibody Screen Negative 03/11/17 22:59 Crossmatch See Detail 03/11/17 22:59
--- NOTE | 2017-03-17 15:22 | Progress Note ---
Assessment and Plan Imp: 1. GI bleed 2. Acute blood loss anemia 3. Hemorrhagic shock 4. Cardiomyopathy 5. P-afib 5. Dementia per chart 6. Hypernatremia Rec: 1. H/H stable; monitor 2. F/u GI recs 3. Stable off Levophed; recommend holding NTG patch and Coreg for now due to hypotension 4. Changed to 1/2 NS for hypernatremia -> decrease rate 5. DVT PPx 6. Family has made him DNR/DNI No family present Subjective Date of service: 03/17/17 Principal diagnosis: GI bleed Interval history: No bleeding. Stool brown per RN. BP still borderline low but has not required pressors, MAP consistently > 65. Coreg held today. Awake, alert, no complaints except back and leg pain. Active Medications Acetaminophen (Tylenol) 650 mg PO Q4H PRN PRN Reason: Pain MILD(1-3)/Fever >100.5/GUAJARDO Last Admin: 03/17/17 11:44 Dose: 650 mg Atorvastatin Calcium (Lipitor) 20 mg PO QHS [facility] Heparin Sodium (Porcine) (Heparin) 5,000 unit SUB-Q Q12HR [facility] Last Admin: 03/17/17 09:34 Dose: 5,000 unit Norepinephrine 8 mg/ Sodium (Chloride) 250 mls @ 3.75 mls/hr IV TITR CORNELIO; 2 MCG /MIN PRN Reason: Protocol Last Titration: 03/15/17 17:03 Dose: 0 mcg/min, 0 mls/hr Sodium Chloride (Nacl 0.45% 1000 Ml) 1,000 mls @ 75 mls/hr IV DIRECT [facility] Last Admin: 03/17/17 09:35 Dose: 75 mls/hr Insulin Aspart (Novolog) 0 units SUB-Q ACHS CORNELIO PRN Reason: Protocol Last Admin: 03/17/17 11:46 Dose: Not Given Levothyroxine Sodium (Synthroid) 200 mcg PO DAILY@0600 [facility] Last Admin: 03/17/17 06:52 Dose: 200 mcg Multivitamins/Minerals (Theragran-M Tab) 1 each PO QDAY [facility] Last Admin: 03/17/17 09:34 Dose: 1 each Nitroglycerin (Nitro Dur) 0.1 mg TD QDAY@0600 [facility] Ondansetron HCl (Zofran) 4 mg IV Q8H PRN PRN Reason: N/V unrelieved by Reglan Senna/Docusate Sodium (Senokot S) 2 tab PO QHS CORNELIO Last Admin: 03/16/17 23:46 Dose: 2 tab Objective Vital Signs - 12hr 03/17/17 03/17/17 03/17/17 03:46 04:00 05:00 Temperature 98.8 F Pulse Rate 67 75 Pulse Rate [ From Monitor] Respiratory 17 19 Rate Blood Pressure 101/73 95/77 O2 Sat by Pulse 100 Oximetry 03/17/17 03/17/17 03/17/17 06:00 07:00 08:00 Temperature 98.6 F Pulse Rate 72 79 62 Pulse Rate [ From Monitor] Respiratory 17 12 12 Rate Blood Pressure 106/79 105/80 105/80 O2 Sat by Pulse 100 100 Oximetry 03/17/17 03/17/17 03/17/17 08:51 09:00 09:36 Temperature Pulse Rate 65 62 Pulse Rate [ 62 From Monitor] Respiratory 12 6 L Rate Blood Pressure 98/72 98/72 O2 Sat by Pulse 100 98 Oximetry 03/17/17 03/17/17 03/17/17 10:00 11:00 12:00 Temperature 98.4 F Pulse Rate 60 61 70 Pulse Rate [ 70 From Monitor] Respiratory 12 13 15 Rate Blood Pressure 99/68 99/68 91/72 O2 Sat by Pulse 98 96 98 Oximetry 03/17/17 03/17/17 13:00 14:00 Temperature Pulse Rate 62 62 Pulse Rate [ From Monitor] Respiratory 9 L 12 Rate Blood Pressure 105/71 105/71 O2 Sat by Pulse 100 100 Oximetry Constitutional: no acute distress, alert Eyes: non-icteric ENT: oropharynx moist Neck: other (rigid in all directions) Effort: normal Ascultation: Bilateral: clear Cardiovascular: regular rate and rhythm (no mrg) Gastrointestinal: normoactive bowel sounds, soft, non-tender, non-distended Integumentary: decubitus ulcer Extremities: edema (1+ bilateral LE edema), other (contracture deformities of upper and lower extremities) Neurologic: pupils equal and round, CN II-XII normal, other (awake, alert, follows commands, answers questions) Psychiatric: mood appropriate, affect normal CBC and BMP: 03/17/17 06:00 03/17/17 06:00 ABG, PT/INR, D-dimer: PT/INR, D-dimer PT 22.3 Sec. (12.2-14.9) H 03/11/17 22:59 INR 1.84 (0.87-1.13) H 03/11/17 22:59 Abnormal lab findings: Abnormal Labs 03/11/17 03/11/17 03/11/17 00:10 22:59 22:59 WBC RBC 2.40 L Hgb 7.2 L Hct 22.1 L RDW 18.0 H Plt Count 104 L Lymph % (Auto) [place] % (Auto) Lymph # [place] # Seg Neutrophils % Seg Neutrophils # PT 22.3 H INR 1.84 H APTT 52.8 H Sodium Potassium Chloride Carbon Dioxide Glucose POC Glucose Calcium Alkaline Phosphatase Total Creatine Kinase CK-MB (CK-2) CK-MB (CK-2) Rel Index Troponin T NT-Pro-B Natriuret Pep Total Protein Albumin LDL Cholesterol Direct HDL Cholesterol Urine WBC (Auto) 142.0 H Crossmatch 03/11/17 03/11/17 03/12/17 22:59 22:59 05:51 WBC RBC Hgb Hct RDW Plt Count Lymph % (Auto) [place] % (Auto) Lymph # [place] # Seg Neutrophils % Seg Neutrophils # PT INR APTT Sodium Potassium Chloride 108.7 H Carbon Dioxide Glucose 72 L POC Glucose Calcium 7.6 L Alkaline Phosphatase Total Creatine Kinase 251 H CK-MB (CK-2) 15.2 H CK-MB (CK-2) Rel Index 6.0 H Troponin T 0.151 H* NT-Pro-B Natriuret Pep 4673 H Total Protein 4.9 L Albumin 1.6 L LDL Cholesterol Direct HDL Cholesterol Urine WBC (Auto) Crossmatch See Detail 03/12/17 03/12/17 03/12/17 05:51 10:45 10:45 WBC RBC Hgb 7.4 L 8.5 L Hct 22.4 L 26.3 L RDW Plt Count Lymph % (Auto) [place] % (Auto) Lymph # [place] # Seg Neutrophils % Seg Neutrophils # PT INR APTT Sodium Potassium Chloride Carbon Dioxide Glucose POC Glucose Calcium Alkaline Phosphatase Total Creatine Kinase 238 H CK-MB (CK-2) 12.7 H CK-MB (CK-2) Rel Index 5.3 H Troponin T 0.153 H* NT-Pro-B Natriuret Pep Total Protein Albumin LDL Cholesterol Direct HDL Cholesterol Urine WBC (Auto) Crossmatch 03/12/17 03/12/17 03/12/17 13:40 23:24 Unknown WBC RBC Hgb 8.2 L Hct 24.5 L RDW Plt Count Lymph % (Auto) [place] % (Auto) Lymph # [place] # Seg Neutrophils % Seg Neutrophils # PT INR APTT Sodium Potassium Chloride Carbon Dioxide Glucose POC Glucose 154 H Calcium Alkaline Phosphatase Total Creatine Kinase 272 H CK-MB (CK-2) 16.4 H CK-MB (CK-2) Rel Index 6.0 H Troponin T 0.165 H* NT-Pro-B Natriuret Pep Total Protein Albumin LDL Cholesterol Direct 26 L HDL Cholesterol 34 L Urine WBC (Auto) Crossmatch 03/13/17 03/13/17 03/13/17 04:00 04:00 05:06 WBC 12.1 H RBC 2.57 L Hgb 7.8 L Hct 23.2 L RDW 16.7 H Plt Count 112 L Lymph % (Auto) 6.7 L [place] % (Auto) Lymph # 0.8 L [place] # 0.9 H Seg Neutrophils % 86.0 H Seg Neutrophils # 10.4 H PT INR APTT Sodium Potassium Chloride 108.1 H Carbon Dioxide Glucose 158 H POC Glucose 161 H Calcium 7.4 L Alkaline Phosphatase Total Creatine Kinase CK-MB (CK-2) CK-MB (CK-2) Rel Index Troponin T NT-Pro-B Natriuret Pep Total Protein Albumin LDL Cholesterol Direct HDL Cholesterol Urine WBC (Auto) Crossmatch 03/13/17 03/13/17 03/13/17 11:52 17:19 21:14 WBC RBC Hgb Hct RDW Plt Count Lymph % (Auto) [place] % (Auto) Lymph # [place] # Seg Neutrophils % Seg Neutrophils # PT INR APTT Sodium Potassium Chloride Carbon Dioxide Glucose POC Glucose 206 H 136 H 120 H Calcium Alkaline Phosphatase Total Creatine Kinase CK-MB (CK-2) CK-MB (CK-2) Rel Index Troponin T NT-Pro-B Natriuret Pep Total Protein Albumin LDL Cholesterol Direct HDL Cholesterol Urine WBC (Auto) Crossmatch 03/14/17 03/14/17 03/14/17 05:31 07:50 07:50 WBC RBC 2.35 L Hgb 7.1 L Hct 21.3 L RDW 16.8 H Plt Count 105 L Lymph % (Auto) [place] % (Auto) Lymph # [place] # Seg Neutrophils % Seg Neutrophils # PT INR APTT Sodium Potassium Chloride 110.4 H Carbon Dioxide Glucose 103 H POC Glucose 125 H Calcium 7.2 L Alkaline Phosphatase Total Creatine Kinase CK-MB (CK-2) CK-MB (CK-2) Rel Index Troponin T NT-Pro-B Natriuret Pep Total Protein Albumin LDL Cholesterol Direct HDL Cholesterol Urine WBC (Auto) Crossmatch 03/14/17 03/14/17 03/14/17 11:51 16:10 22:10 WBC RBC Hgb 7.7 L Hct 23.3 L RDW Plt Count Lymph % (Auto) [place] % (Auto) Lymph # [place] # Seg Neutrophils % Seg Neutrophils # PT INR APTT Sodium Potassium Chloride Carbon Dioxide Glucose POC Glucose 135 H 144 H Calcium Alkaline Phosphatase Total Creatine Kinase CK-MB (CK-2) CK-MB (CK-2) Rel Index Troponin T NT-Pro-B Natriuret Pep Total Protein Albumin LDL Cholesterol Direct HDL Cholesterol Urine WBC (Auto) Crossmatch 03/15/17 03/15/17 03/15/17 05:10 05:10 08:15 WBC RBC 2.46 L Hgb 7.6 L Hct 22.2 L RDW 16.2 H Plt Count 86 L Lymph % (Auto) [place] % (Auto) Lymph # [place] # Seg Neutrophils % Seg Neutrophils # PT INR APTT Sodium 147 H Potassium Chloride 113.0 H Carbon Dioxide 21 L Glucose 122 H POC Glucose 119 H Calcium 6.9 L Alkaline Phosphatase Total Creatine Kinase CK-MB (CK-2) CK-MB (CK-2) Rel Index Troponin T NT-Pro-B Natriuret Pep Total Protein Albumin LDL Cholesterol Direct HDL Cholesterol Urine WBC (Auto) Crossmatch 03/15/17 03/15/17 03/15/17 11:55 11:57 17:10 WBC RBC Hgb 7.8 L Hct 23.1 L RDW Plt Count Lymph % (Auto) [place] % (Auto) Lymph # [place] # Seg Neutrophils % Seg Neutrophils # PT INR APTT Sodium Potassium Chloride Carbon Dioxide Glucose POC Glucose 130 H 123 H Calcium Alkaline Phosphatase Total Creatine Kinase CK-MB (CK-2) CK-MB (CK-2) Rel Index Troponin T NT-Pro-B Natriuret Pep Total Protein Albumin LDL Cholesterol Direct HDL Cholesterol Urine WBC (Auto) Crossmatch 03/15/17 03/16/17 03/16/17 21:35 07:52 09:06 WBC RBC 2.51 L Hgb 7.5 L Hct 22.5 L RDW 16.2 H Plt Count 80 L Lymph % (Auto) 10.6 L [place] % (Auto) 8.3 H Lymph # 0.9 L [place] # Seg Neutrophils % 79.5 H Seg Neutrophils # PT INR APTT Sodium Potassium Chloride Carbon Dioxide Glucose POC Glucose 145 H 107 H Calcium Alkaline Phosphatase Total Creatine Kinase CK-MB (CK-2) CK-MB (CK-2) Rel Index Troponin T NT-Pro-B Natriuret Pep Total Protein Albumin LDL Cholesterol Direct HDL Cholesterol Urine WBC (Auto) Crossmatch 03/16/17 03/16/17 03/16/17 09:06 16:05 22:18 WBC RBC Hgb Hct RDW Plt Count Lymph % (Auto) [place] % (Auto) Lymph # [place] # Seg Neutrophils % Seg Neutrophils # PT INR APTT Sodium Potassium 3.3 L Chloride 111.5 H Carbon Dioxide Glucose 110 H POC Glucose 121 H 195 H Calcium 7.3 L Alkaline Phosphatase Total Creatine Kinase CK-MB (CK-2) CK-MB (CK-2) Rel Index Troponin T NT-Pro-B Natriuret Pep Total Protein Albumin LDL Cholesterol Direct HDL Cholesterol Urine WBC (Auto) Crossmatch 03/17/17 03/17/17 03/17/17 05:22 06:00 06:00 WBC RBC 2.76 L Hgb 8.2 L Hct 25.0 L RDW 16.7 H Plt Count 77 L Lymph % (Auto) 13.1 L [place] % (Auto) Lymph # 1.0 L [place] # Seg Neutrophils % 78.7 H Seg Neutrophils # PT INR APTT Sodium Potassium 3.4 L Chloride 110.3 H Carbon Dioxide Glucose POC Glucose 106 H Calcium 7.2 L Alkaline Phosphatase 146 H Total Creatine Kinase CK-MB (CK-2) CK-MB (CK-2) Rel Index Troponin T NT-Pro-B Natriuret Pep Total Protein 4.6 L Albumin 1.6 L LDL Cholesterol Direct HDL Cholesterol Urine WBC (Auto) Crossmatch Chest x-ray: report reviewed, image reviewed
[2017-03-17] MEDS: SENOKOT S PO SCH (22:38)
[2017-03-18] MEDS: NACL 0.45% 1000 ML 1,000 ML IV SCH ×2 (04:47→11:44)
[2017-03-18 05:14] LABS: Basophils % (Auto) 0.1 % (0.0-1.8); Eosinophils % (Auto) 0.3 % (0.0-4.3); Hematocrit 24.4 % (35.5-45.6); Hemoglobin 8.4 gm/dl (11.8-15.2); Lymphocytes # (Auto) 0.4 K/mm3 (1.2-5.4); Lymphocytes % (Auto) 6.1 % (13.4-35.0); Mean Corpuscular HGB Conc 34 % (32-34); Mean Corpuscular Hemoglobin 31 pg (28-32); Mean Corpuscular Volume 90 fl (84-94); Monocytes # (Auto) 0.4 K/mm3 (0.0-0.8); Monocytes % (Auto) 5.7 % (0.0-7.3); Red Blood Count 2.71 M/mm3 (3.65-5.03)
[2017-03-18 05:20] LABS: Platelet Count 60 K/mm3 (140-440)
[2017-03-18 05:36] LABS: Alanine Aminotransferase 9 units/L (7-56); Albumin 1.5 g/dL (3.9-5); BUN/Creatinine Ratio 14; Blood Urea Nitrogen 13 mg/dL (9-20); Calcium 7.3 mg/dL (8.4-10.2); Hemolysis Index 4
[2017-03-18] MEDS ORDERED: NITRO DUR TD SCH (06:00)
[2017-03-18] MEDS: SYNTHROID PO SCH (06:09)
[2017-03-18] MEDS: NOVOLOG SUB-Q SCH ×4 (07:50→22:58)
--- NOTE | 2017-03-18 08:16 | Progress Note ---
Assessment and Plan Assessment and plan: 66-year-old male with past medical history significant for CHF, A. fib, CAD status post stent was admitted to ICU after he was presented with hemorrhagic shock, rectal bleeding Rectal bleeding - No active bleeding - H&H is holding a 8.4/24 - GI consult appreciated Shock, ?hemorrhagic VS septic - Patient was off levophed 2days ago - This morning patient was hypotensive with MAP of 55, will give NS 250ml bolus , Put him back on Levophed - Assistant Head Cashier is following him - blood culture A. fib, CAD, cardiomyopathy - Continue rate control, recent on an anticoagulant, cardiology consult appreciated Hypokalemia -Repleted CODE STATUS - DO NOT RESUSCITATE Disposition - Continue ICU care History Interval history: Patient was seen and evaluated at the bedside, patient complains pain, patient is alert and oriented. Patient was hypotensive this morning with MAP of 55. No active bleeding. Hospitalist Physical - Physical exam Narrative exam: Not in cardiopulmonary distress. The patient appeared well nourished and normally developed. Vital signs as documented. Head exam is unremarkable. No scleral icterus . Neck is without jugular venous distension, thyromegaly, or carotid bruits. Lungs are clear to auscultation. Cardiac exam reveals regular rate and Rhythm. First and second heart sounds normal. No murmurs, rubs or gallops. Abdominal exam reveals normal bowel sounds, no masses, no organomegaly and no aortic enlargement. Extremities are nonedematous and both femoral and pedal pulses are normal. 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: - Constitutional Vitals: Temp Pulse Resp BP Pulse Ox 91.2 F L 83 15 83/56 96 03/18/17 04:00 03/18/17 06:12 03/18/17 06:00 03/18/17 06:12 03/18/17 06:00 General appearance: Present: no acute distress, well-nourished Results - Labs CBC & Chem 7: 03/18/17 04:50 03/18/17 04:50 Labs: Laboratory Last Values WBC 7.2 K/mm3 (4.5-11.0) 03/18/17 04:50 RBC 2.71 M/mm3 (3.65-5.03) L 03/18/17 04:50 Hgb 8.4 gm/dl (11.8-15.2) L 03/18/17 04:50 Hct 24.4 % (35.5-45.6) L 03/18/17 04:50 MCV 90 fl (84-94) 03/18/17 04:50 MCH 31 pg (28-32) 03/18/17 04:50 MCHC 34 % (32-34) 03/18/17 04:50 RDW 17.0 % (13.2-15.2) H 03/18/17 04:50 Plt Count 60 K/mm3 (140-440) L 03/18/17 04:50 Lymph % (Auto) 6.1 % (13.4-35.0) L 03/18/17 04:50 [place] % (Auto) 5.7 % (0.0-7.3) 03/18/17 04:50 Eos % (Auto) 0.3 % (0.0-4.3) 03/18/17 04:50 Baso % (Auto) 0.1 % (0.0-1.8) 03/18/17 04:50 Lymph # 0.4 K/mm3 (1.2-5.4) L 03/18/17 04:50 [place] # 0.4 K/mm3 (0.0-0.8) 03/18/17 04:50 Eos # 0.0 K/mm3 (0.0-0.4) 03/18/17 04:50 Baso # 0.0 K/mm3 (0.0-0.1) 03/18/17 04:50 Seg Neutrophils % 87.8 % (40.0-70.0) H 03/18/17 04:50 Seg Neutrophils # 6.4 K/mm3 (1.8-7.7) 03/18/17 04:50 PT 22.3 Sec. (12.2-14.9) H 03/11/17 22:59 INR 1.84 (0.87-1.13) H 03/11/17 22:59 APTT 52.8 Sec. (24.2-36.6) H 03/11/17 22:59 Sodium 142 mmol/L (137-145) 03/18/17 04:50 Potassium 3.1 mmol/L (3.6-5.0) L 03/18/17 04:50 Chloride 108.4 mmol/L (98-107) H 03/18/17 04:50 Carbon Dioxide 19 mmol/L (22-30) L 03/18/17 04:50 Anion Gap 18 mmol/L 03/18/17 04:50 BUN 13 mg/dL (9-20) 03/18/17 04:50 Creatinine 0.9 mg/dL (0.8-1.5) 03/18/17 04:50 Estimated GFR > 60 ml/min 03/18/17 04:50 BUN/Creatinine Ratio 14 % 03/18/17 04:50 Glucose 121 mg/dL (75-100) H 03/18/17 04:50 POC Glucose 126 (70-105) H 03/18/17 07:41 Calcium 7.3 mg/dL (8.4-10.2) L 03/18/17 04:50 Total Bilirubin 0.90 mg/dL (0.1-1.2) 03/18/17 04:50 AST 28 units/L (5-40) 03/18/17 04:50 ALT 9 units/L (7-56) 03/18/17 04:50 Alkaline Phosphatase 183 units/L (35-129) H 03/18/17 04:50 Total Creatine Kinase 272 units/L (55-170) H 03/12/17 Unknown CK-MB (CK-2) 16.4 ng/mL (0.0-4.0) H 03/12/17 Unknown CK-MB (CK-2) Rel Index 6.0 (0-4) H 03/12/17 Unknown Troponin T 0.165 ng/mL (0.00-0.029) H* 03/12/17 Unknown NT-Pro-B Natriuret Pep 4673 pg/mL (0-900) H 03/11/17 22:59 Total Protein 4.3 g/dL (6.3-8.2) L 03/18/17 04:50 Albumin 1.5 g/dL (3.9-5) L 03/18/17 04:50 Albumin/Globulin Ratio 0.5 % 03/18/17 04:50 Triglycerides 34 mg/dL (2-149) 03/12/17 Unknown Cholesterol 66 mg/dL (50-199) 03/12/17 Unknown LDL Cholesterol Direct 26 mg/dL (50-130) L 03/12/17 Unknown HDL Cholesterol 34 mg/dL (40-59) L 03/12/17 Unknown Cholesterol/HDL Ratio 1.94 % 03/12/17 Unknown Urine Color Aide (Yellow) 03/11/17 00:10 Urine Turbidity Clear (Clear) 03/11/17 00:10 Urine pH 5.0 (5.0-7.0) 03/11/17 00:10 Ur Specific [place] 1.018 (1.003-1.030) 03/11/17 00:10 Urine Protein <15 mg/dl mg/dL (Negative) 03/11/17 00:10 Urine Glucose (UA) Neg mg/dL (Negative) 03/11/17 00:10 Urine Ketones Neg mg/dL (Negative) 03/11/17 00:10 Urine Blood Mod (Negative) 03/11/17 00:10 Urine Nitrite Pos (Negative) 03/11/17 00:10 Urine Bilirubin Neg (Negative) 03/11/17 00:10 Urine Urobilinogen < 2.0 mg/dL (<2.0) 03/11/17 00:10 Ur Leukocyte Esterase Lg (Negative) 03/11/17 00:10 Urine WBC (Auto) 142.0 /HPF (0.0-6.0) H 03/11/17 00:10 Urine RBC (Auto) 9.0 /HPF (0.0-6.0) 03/11/17 00:10 U Epithel Cells (Auto) < 1.0 /HPF (0-13.0) 03/11/17 00:10 Urine Bacteria (Auto) 4+ /HPF (Negative) 03/11/17 00:10 Urine Mucus 3+ /HPF 03/11/17 00:10 Urine Opiates Screen Presumptive negative 03/11/17 00:10 Urine Methadone Screen Presumptive negative 03/11/17 00:10 Ur Barbiturates Screen Presumptive negative 03/11/17 00:10 Ur Phencyclidine Scrn Presumptive negative 03/11/17 00:10 Ur Amphetamines Screen Presumptive positive 03/11/17 00:10 U Benzodiazepines Scrn Presumptive negative 03/11/17 00:10 Urine Cocaine Screen Presumptive negative 03/11/17 00:10 U Marijuana (THC) Screen Presumptive negative 03/11/17 00:10 Drugs of Abuse Note Disclamer 03/11/17 00:10 Blood Type O POSITIVE 03/11/17 22:59 Antibody Screen Negative 03/11/17 22:59 Crossmatch See Detail 03/11/17 22:59
[2017-03-18] MEDS: POTASSIUM CHLORIDE FEEDTUBE ONE ×2 (08:21→09:05)
[2017-03-18] MEDS: LEVOPHED 8 MG in NACL 0.9% 250ML 242 ML IV SCH ×2 (09:35→22:56)
[2017-03-18] MEDS: THERAGRAN-M Tab PO SCH (09:37)
[2017-03-18] MEDS: HEPARIN SUB-Q SCH ×2 (10:00→23:16)
[2017-03-18] MEDS: KCL 20MEQ/100ML 20 MEQ/100 ML BAG IV SCH ×2 (10:52→13:11)
[2017-03-18] MEDS ORDERED: MORPHINE IV PRN (12:41)
[2017-03-18] MEDS ORDERED: VANCOMYCIN PHARMACY TO DOSE IV SCH (13:00)
--- NOTE | 2017-03-18 13:06 | Progress Note ---
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 Medical therapy for CAD with statins, afterload reduction, nitrates and beta blockers as his blood pressure will allow. Conservative cardiac management. Subjective Date of service: 03/18/17 Principal diagnosis: GI bleed Interval history: Patient is resting in bed comfortably. No cardiac events reported. Objective Vital Signs Temp Pulse Pulse Resp BP Pulse Ox 03/18/17 12:00 100 H 28 H 80/57 98 03/18/17 11:00 88 29 H 91/70 100 03/18/17 10:00 83 19 79/53 100 03/18/17 09:00 102 H 20 106/62 97 03/18/17 08:30 76 16 96 03/18/17 08:00 76 16 66/45 96 03/18/17 07:00 80 13 97/47 95 03/18/17 06:12 83 83/56 03/18/17 06:00 81 15 83/56 96 03/18/17 05:00 79 17 77/57 94 03/18/17 04:00 91.2 F L 71 16 77/57 94 03/18/17 03:00 74 17 96/73 100 03/18/17 02:00 74 20 101/66 98 03/18/17 01:00 67 22 101/77 99 03/18/17 00:00 65 17 112/74 99 03/17/17 23:57 98.2 F 03/17/17 23:00 61 10 L 119/83 99 03/17/17 22:42 61 23 116/80 99 03/17/17 22:00 62 14 110/80 98 03/17/17 21:20 62 03/17/17 21:00 58 L 10 L 107/80 03/17/17 20:13 98.1 F 03/17/17 20:00 75 60 18 109/79 03/17/17 19:00 60 9 L 91/73 100 03/17/17 18:00 62 11 L 91/73 99 03/17/17 17:00 67 22 96/69 97 03/17/17 16:00 98.6 F 62 62 14 120/71 99 03/17/17 15:00 64 15 89/70 99 03/17/17 14:00 62 12 105/71 100 - Physical Examination General: No Apparent Distress Cardiac: Positive: Reg Rate and Rhythm - Labs and Meds Cardiac Enzymes 03/18/17 Range/Units 04:50 AST 28 (5-40) units/L CBC 03/18/17 Range/Units 04:50 WBC 7.2 (4.5-11.0) K/mm3 RBC 2.71 L (3.65-5.03) M/mm3 Hgb 8.4 L (11.8-15.2) gm/dl Hct 24.4 L (35.5-45.6) % Plt Count 60 L (140-440) K/mm3 Lymph # 0.4 L (1.2-5.4) K/mm3 [place] # 0.4 (0.0-0.8) K/mm3 Eos # 0.0 (0.0-0.4) K/mm3 Baso # 0.0 (0.0-0.1) K/mm3 Comprehensive Metabolic Panel 03/18/17 Range/Units 04:50 Sodium 142 (137-145) mmol/L Potassium 3.1 L (3.6-5.0) mmol/L Chloride 108.4 H (98-107) mmol/L Carbon Dioxide 19 L (22-30) mmol/L BUN 13 (9-20) mg/dL Creatinine 0.9 (0.8-1.5) mg/dL Glucose 121 H (75-100) mg/dL Calcium 7.3 L (8.4-10.2) mg/dL AST 28 (5-40) units/L ALT 9 (7-56) units/L Alkaline Phosphatase 183 H (35-129) units/L Total Protein 4.3 L (6.3-8.2) g/dL Albumin 1.5 L (3.9-5) g/dL
--- NOTE | 2017-03-18 13:34 | Progress Note ---
Assessment and Plan Imp: 1. GI bleed 2. Acute blood loss anemia 3. Hemorrhagic shock 4. Cardiomyopathy 5. P-afib 5. Dementia per chart 6. Hypernatremia 7. SIRS/hypothermia/hypotension, r/o sepsis Rec: 1. H/H stable; monitor; consider transfusing him to try to help with his hypotension 2. F/u GI recs 3. Hold all BP meds including NTG patch and Coreg; wean Levo to keep MAP > 65 4. Check TFTs 5. Cont. gentle hydration with 1/2 NS pending CXR 6. Pham-culture, repeat CXR, and start empiric ABX pending work-up 7. DVT PPx 8. Family has made him DNR/DNI; long-term prognosis is poor due to multiple issues 9. Complex decision-making Plan of care reviewed with patient/family, they understand/agree Subjective Date of service: 03/18/17 Principal diagnosis: GI bleed Interval history: No bleeding. Hypotensive this AM, back on 2mcg of Levophed. Also hypothermic on Dottie hugger and hypoxic now on 2L NC. Denies SOB, cough, sputum, chest pain. Active Medications Acetaminophen (Tylenol) 650 mg PO Q4H PRN PRN Reason: Pain MILD(1-3)/Fever >100.5/GUAJARDO Last Admin: 03/17/17 11:44 Dose: 650 mg Atorvastatin Calcium (Lipitor) 20 mg PO QHS CORNELIO Last Admin: 03/17/17 22:38 Dose: 20 mg Heparin Sodium (Porcine) (Heparin) 5,000 unit SUB-Q Q12HR CORNELIO Last Admin: 03/18/17 10:00 Dose: Not Given Norepinephrine 8 mg/ Sodium (Chloride) 250 mls @ 3.75 mls/hr IV TITR CORNELIO; 2 MCG /MIN PRN Reason: Protocol Last Titration: 03/18/17 13:18 Dose: 4 mcg/min, 7.5 mls/hr Sodium Chloride (Nacl 0.45% 1000 Ml) 1,000 mls @ 42 mls/hr IV DIRECT CORNELIO Last Admin: 03/18/17 11:44 Dose: 42 mls/hr Aztreonam (Azactam/Ns 1 Gm/50 Ml) 1 gm in 50 mls @ 50 mls/hr IV Q8HR CORNELIO PRN Reason: Protocol Vancomycin HCl 1,750 mg/ (Sodium Chloride) 517.5 mls @ 333.333 mls/hr IV ONCE ONE Stop: 03/18/17 15:33 Insulin Aspart (Novolog) 0 units SUB-Q ACHS [facility] PRN Reason: Protocol Last Admin: 03/18/17 07:50 Dose: Not Given Levothyroxine Sodium (Synthroid) 200 mcg PO DAILY@0600 [facility] Last Admin: 03/18/17 06:09 Dose: 200 mcg Morphine Sulfate (Morphine) 1 mg IV Q4H PRN PRN Reason: Pain, Moderate (4-6) Last Admin: 03/18/17 13:11 Dose: 1 mg Multivitamins/Minerals (Theragran-M Tab) 1 each PO QDAY [facility] Last Admin: 03/18/17 09:37 Dose: 1 each Ondansetron HCl (Zofran) 4 mg IV Q8H PRN PRN Reason: N/V unrelieved by [place] Last Admin: 03/18/17 08:46 Dose: 4 mg Senna/Docusate Sodium (Senokot S) 2 tab PO QHS [facility] Last Admin: 03/17/17 22:38 Dose: 2 tab Vancomycin HCl (Vancomycin Pharmacy To Dose) 1 each IV PKCONSULT [facility] PRN Reason: Protocol Objective Vital Signs - 12hr 03/18/17 03/18/17 03/18/17 02:00 03:00 04:00 Temperature 91.2 F L Pulse Rate 74 74 71 Pulse Rate [ From Monitor] Respiratory 20 17 16 Rate Blood Pressure 101/66 96/73 77/57 O2 Sat by Pulse 98 100 94 Oximetry 03/18/17 03/18/17 03/18/17 05:00 06:00 06:12 Temperature Pulse Rate 79 81 83 Pulse Rate [ From Monitor] Respiratory 17 15 Rate Blood Pressure 77/57 83/56 83/56 O2 Sat by Pulse 94 96 Oximetry 03/18/17 03/18/17 03/18/17 07:00 08:00 08:30 Temperature Pulse Rate 80 76 Pulse Rate [ 76 From Monitor] Respiratory 13 16 16 Rate Blood Pressure 97/47 66/45 O2 Sat by Pulse 95 96 96 Oximetry 03/18/17 03/18/17 03/18/17 09:00 10:00 11:00 Temperature Pulse Rate 102 H 83 88 Pulse Rate [ From Monitor] Respiratory 20 19 29 H Rate Blood Pressure 106/62 79/53 91/70 O2 Sat by Pulse 97 100 100 Oximetry 03/18/17 12:00 Temperature Pulse Rate 100 H Pulse Rate [ From Monitor] Respiratory 28 H Rate Blood Pressure 80/57 O2 Sat by Pulse 98 Oximetry Constitutional: no acute distress, alert Eyes: non-icteric ENT: oropharynx moist Neck: other (rigid in all directions) Effort: normal Ascultation: Bilateral: clear Cardiovascular: regular rate and rhythm (no mrg) Gastrointestinal: normoactive bowel sounds, soft, non-tender, non-distended Integumentary: decubitus ulcer Extremities: edema (1+ bilateral LE edema), other (contracture deformities of upper and lower extremities) Neurologic: pupils equal and round, CN II-XII normal, other (awake, alert, follows commands, answers questions) Psychiatric: mood appropriate, affect normal CBC and BMP: 03/18/17 04:50 03/18/17 04:50 ABG, PT/INR, D-dimer: PT/INR, D-dimer PT 22.3 Sec. (12.2-14.9) H 03/11/17 22:59 INR 1.84 (0.87-1.13) H 03/11/17 22:59 Abnormal lab findings: Abnormal Labs 03/11/17 03/11/17 03/11/17 00:10 22:59 22:59 WBC RBC 2.40 L Hgb 7.2 L Hct 22.1 L RDW 18.0 H Plt Count 104 L Lymph % (Auto) [place] % (Auto) Lymph # [place] # Seg Neutrophils % Seg Neutrophils # PT 22.3 H INR 1.84 H APTT 52.8 H Sodium Potassium Chloride Carbon Dioxide Glucose POC Glucose Calcium Alkaline Phosphatase Total Creatine Kinase CK-MB (CK-2) CK-MB (CK-2) Rel Index Troponin T NT-Pro-B Natriuret Pep Total Protein Albumin LDL Cholesterol Direct HDL Cholesterol Urine WBC (Auto) 142.0 H Crossmatch 03/11/17 03/11/17 03/12/17 22:59 22:59 05:51 WBC RBC Hgb Hct RDW Plt Count Lymph % (Auto) [place] % (Auto) Lymph # [place] # Seg Neutrophils % Seg Neutrophils # PT INR APTT Sodium Potassium Chloride 108.7 H Carbon Dioxide Glucose 72 L POC Glucose Calcium 7.6 L Alkaline Phosphatase Total Creatine Kinase 251 H CK-MB (CK-2) 15.2 H CK-MB (CK-2) Rel Index 6.0 H Troponin T 0.151 H* NT-Pro-B Natriuret Pep 4673 H Total Protein 4.9 L Albumin 1.6 L LDL Cholesterol Direct HDL Cholesterol Urine WBC (Auto) Crossmatch See Detail 03/12/17 03/12/17 03/12/17 05:51 10:45 10:45 WBC RBC Hgb 7.4 L 8.5 L Hct 22.4 L 26.3 L RDW Plt Count Lymph % (Auto) [place] % (Auto) Lymph # [place] # Seg Neutrophils % Seg Neutrophils # PT INR APTT Sodium Potassium Chloride Carbon Dioxide Glucose POC Glucose Calcium Alkaline Phosphatase Total Creatine Kinase 238 H CK-MB (CK-2) 12.7 H CK-MB (CK-2) Rel Index 5.3 H Troponin T 0.153 H* NT-Pro-B Natriuret Pep Total Protein Albumin LDL Cholesterol Direct HDL Cholesterol Urine WBC (Auto) Crossmatch 03/12/17 03/12/17 03/12/17 13:40 23:24 Unknown WBC RBC Hgb 8.2 L Hct 24.5 L RDW Plt Count Lymph % (Auto) [place] % (Auto) Lymph # [place] # Seg Neutrophils % Seg Neutrophils # PT INR APTT Sodium Potassium Chloride Carbon Dioxide Glucose POC Glucose 154 H Calcium Alkaline Phosphatase Total Creatine Kinase 272 H CK-MB (CK-2) 16.4 H CK-MB (CK-2) Rel Index 6.0 H Troponin T 0.165 H* NT-Pro-B Natriuret Pep Total Protein Albumin LDL Cholesterol Direct 26 L HDL Cholesterol 34 L Urine WBC (Auto) Crossmatch 03/13/17 03/13/17 03/13/17 04:00 04:00 05:06 WBC 12.1 H RBC 2.57 L Hgb 7.8 L Hct 23.2 L RDW 16.7 H Plt Count 112 L Lymph % (Auto) 6.7 L [place] % (Auto) Lymph # 0.8 L [place] # 0.9 H Seg Neutrophils % 86.0 H Seg Neutrophils # 10.4 H PT INR APTT Sodium Potassium Chloride 108.1 H Carbon Dioxide Glucose 158 H POC Glucose 161 H Calcium 7.4 L Alkaline Phosphatase Total Creatine Kinase CK-MB (CK-2) CK-MB (CK-2) Rel Index Troponin T NT-Pro-B Natriuret Pep Total Protein Albumin LDL Cholesterol Direct HDL Cholesterol Urine WBC (Auto) Crossmatch 03/13/17 03/13/17 03/13/17 11:52 17:19 21:14 WBC RBC Hgb Hct RDW Plt Count Lymph % (Auto) [place] % (Auto) Lymph # [place] # Seg Neutrophils % Seg Neutrophils # PT INR APTT Sodium Potassium Chloride Carbon Dioxide Glucose POC Glucose 206 H 136 H 120 H Calcium Alkaline Phosphatase Total Creatine Kinase CK-MB (CK-2) CK-MB (CK-2) Rel Index Troponin T NT-Pro-B Natriuret Pep Total Protein Albumin LDL Cholesterol Direct HDL Cholesterol Urine WBC (Auto) Crossmatch 03/14/17 03/14/17 03/14/17 05:31 07:50 07:50 WBC RBC 2.35 L Hgb 7.1 L Hct 21.3 L RDW 16.8 H Plt Count 105 L Lymph % (Auto) [place] % (Auto) Lymph # [place] # Seg Neutrophils % Seg Neutrophils # PT INR APTT Sodium Potassium Chloride 110.4 H Carbon Dioxide Glucose 103 H POC Glucose 125 H Calcium 7.2 L Alkaline Phosphatase Total Creatine Kinase CK-MB (CK-2) CK-MB (CK-2) Rel Index Troponin T NT-Pro-B Natriuret Pep Total Protein Albumin LDL Cholesterol Direct HDL Cholesterol Urine WBC (Auto) Crossmatch 03/14/17 03/14/17 03/14/17 11:51 16:10 22:10 WBC RBC Hgb 7.7 L Hct 23.3 L RDW Plt Count Lymph % (Auto) [place] % (Auto) Lymph # [place] # Seg Neutrophils % Seg Neutrophils # PT INR APTT Sodium Potassium Chloride Carbon Dioxide Glucose POC Glucose 135 H 144 H Calcium Alkaline Phosphatase Total Creatine Kinase CK-MB (CK-2) CK-MB (CK-2) Rel Index Troponin T NT-Pro-B Natriuret Pep Total Protein Albumin LDL Cholesterol Direct HDL Cholesterol Urine WBC (Auto) Crossmatch 03/15/17 03/15/17 03/15/17 05:10 05:10 08:15 WBC RBC 2.46 L Hgb 7.6 L Hct 22.2 L RDW 16.2 H Plt Count 86 L Lymph % (Auto) [place] % (Auto) Lymph # [place] # Seg Neutrophils % Seg Neutrophils # PT INR APTT Sodium 147 H Potassium Chloride 113.0 H Carbon Dioxide 21 L Glucose 122 H POC Glucose 119 H Calcium 6.9 L Alkaline Phosphatase Total Creatine Kinase CK-MB (CK-2) CK-MB (CK-2) Rel Index Troponin T NT-Pro-B Natriuret Pep Total Protein Albumin LDL Cholesterol Direct HDL Cholesterol Urine WBC (Auto) Crossmatch 03/15/17 03/15/17 03/15/17 11:55 11:57 17:10 WBC RBC Hgb 7.8 L Hct 23.1 L RDW Plt Count Lymph % (Auto) [place] % (Auto) Lymph # [place] # Seg Neutrophils % Seg Neutrophils # PT INR APTT Sodium Potassium Chloride Carbon Dioxide Glucose POC Glucose 130 H 123 H Calcium Alkaline Phosphatase Total Creatine Kinase CK-MB (CK-2) CK-MB (CK-2) Rel Index Troponin T NT-Pro-B Natriuret Pep Total Protein Albumin LDL Cholesterol Direct HDL Cholesterol Urine WBC (Auto) Crossmatch 03/15/17 03/16/17 03/16/17 21:35 07:52 09:06 WBC RBC 2.51 L Hgb 7.5 L Hct 22.5 L RDW 16.2 H Plt Count 80 L Lymph % (Auto) 10.6 L [place] % (Auto) 8.3 H Lymph # 0.9 L [place] # Seg Neutrophils % 79.5 H Seg Neutrophils # PT INR APTT Sodium Potassium Chloride Carbon Dioxide Glucose POC Glucose 145 H 107 H Calcium Alkaline Phosphatase Total Creatine Kinase CK-MB (CK-2) CK-MB (CK-2) Rel Index Troponin T NT-Pro-B Natriuret Pep Total Protein Albumin LDL Cholesterol Direct HDL Cholesterol Urine WBC (Auto) Crossmatch 03/16/17 03/16/17 03/16/17 09:06 16:05 22:18 WBC RBC Hgb Hct RDW Plt Count Lymph % (Auto) [place] % (Auto) Lymph # [place] # Seg Neutrophils % Seg Neutrophils # PT INR APTT Sodium Potassium 3.3 L Chloride 111.5 H Carbon Dioxide Glucose 110 H POC Glucose 121 H 195 H Calcium 7.3 L Alkaline Phosphatase Total Creatine Kinase CK-MB (CK-2) CK-MB (CK-2) Rel Index Troponin T NT-Pro-B Natriuret Pep Total Protein Albumin LDL Cholesterol Direct HDL Cholesterol Urine WBC (Auto) Crossmatch 03/17/17 03/17/17 03/17/17 05:22 06:00 06:00 WBC RBC 2.76 L Hgb 8.2 L Hct 25.0 L RDW 16.7 H Plt Count 77 L Lymph % (Auto) 13.1 L [place] % (Auto) Lymph # 1.0 L [place] # Seg Neutrophils % 78.7 H Seg Neutrophils # PT INR APTT Sodium Potassium 3.4 L Chloride 110.3 H Carbon Dioxide Glucose POC Glucose 106 H Calcium 7.2 L Alkaline Phosphatase 146 H Total Creatine Kinase CK-MB (CK-2) CK-MB (CK-2) Rel Index Troponin T NT-Pro-B Natriuret Pep Total Protein 4.6 L Albumin 1.6 L LDL Cholesterol Direct HDL Cholesterol Urine WBC (Auto) Crossmatch 03/17/17 03/17/17 03/18/17 16:12 21:36 04:50 WBC RBC 2.71 L Hgb 8.4 L Hct 24.4 L RDW 17.0 H Plt Count 60 L Lymph % (Auto) 6.1 L [place] % (Auto) Lymph # 0.4 L [place] # Seg Neutrophils % 87.8 H Seg Neutrophils # PT INR APTT Sodium Potassium Chloride Carbon Dioxide Glucose POC Glucose 111 H 134 H Calcium Alkaline Phosphatase Total Creatine Kinase CK-MB (CK-2) CK-MB (CK-2) Rel Index Troponin T NT-Pro-B Natriuret Pep Total Protein Albumin LDL Cholesterol Direct HDL Cholesterol Urine WBC (Auto) Crossmatch 03/18/17 03/18/17 03/18/17 04:50 07:41 12:30 WBC RBC Hgb Hct RDW Plt Count Lymph % (Auto) [place] % (Auto) Lymph # [place] # Seg Neutrophils % Seg Neutrophils # PT INR APTT Sodium Potassium 3.1 L Chloride 108.4 H Carbon Dioxide 19 L Glucose 121 H POC Glucose 126 H 113 H Calcium 7.3 L Alkaline Phosphatase 183 H Total Creatine Kinase CK-MB (CK-2) CK-MB (CK-2) Rel Index Troponin T NT-Pro-B Natriuret Pep Total Protein 4.3 L Albumin 1.5 L LDL Cholesterol Direct HDL Cholesterol Urine WBC (Auto) Crossmatch Chest x-ray: report reviewed, image reviewed
[2017-03-18] MEDS ORDERED: VANCOMYCIN 1,750 MG in NACL 0.9% 500 ML 500 ML IV ONE (14:00)
--- NOTE | 2017-03-18 14:25 | XRay Report ---
AP CHEST: HISTORY: Hypoxia Mild cardiomegaly, mild vascular congestion and small to medium left pleural effusion have developed since 03/12/17. There are mild atelectatic changes in the lower lung zones. No pneumothorax. Right venous catheter and pacemaker device are unchanged. IMPRESSION: Volume overload.
[2017-03-18] MEDS: AZACTAM/NS 1 GM/50 ML 1 GM/50 ML VIAL IV SCH ×2 (15:24→22:58)
[2017-03-18] MEDS ORDERED: LASIX IV ONE (16:30)
[2017-03-18] MEDS: SENOKOT S PO SCH (23:17)
[2017-03-19 05:20] LABS: Hematocrit 26.9 % (35.5-45.6); Hemoglobin 9.1 gm/dl (11.8-15.2); Mean Corpuscular HGB Conc 34 % (32-34); Mean Corpuscular Hemoglobin 31 pg (28-32); Mean Corpuscular Volume 92 fl (84-94); Red Blood Count 2.93 M/mm3 (3.65-5.03); Red Cell Distribution Width 17.8 % (13.2-15.2)
[2017-03-19 05:26] LABS: Platelet Count 77 K/mm3 (140-440)
[2017-03-19 05:51] LABS: Alanine Aminotransferase 11 units/L (7-56); Albumin 1.4 g/dL (3.9-5); BUN/Creatinine Ratio 12; Blood Urea Nitrogen 16 mg/dL (9-20); Calcium 7.6 mg/dL (8.4-10.2); Hemolysis Index 9
[2017-03-19 06:04] LABS: Band Neutrophils # (Manual) 2.3 K/mm3; Basophils % (Manual) 0 % (0.0-1.8); Eosinophils % (Manual) 0 % (0.0-4.3); Total Cells Counted 100
[2017-03-19 06:05] LABS: Acanthocytes Few; Burr Cells 1+
[2017-03-19 06:06] LABS: Anisocytosis 2+; Basophilic Stippling Rare; Target Cells 2+
[2017-03-19 06:07] LABS: Platelet Estimate Consistent w Auto
[2017-03-19] MEDS: LEVOPHED 8 MG in NACL 0.9% 250ML 242 ML IV SCH ×3 (07:00→21:53)
[2017-03-19] MEDS: NOVOLOG SUB-Q SCH ×3 (08:00→17:16)
[2017-03-19] MEDS: THERAGRAN-M Tab PO SCH (10:00)
[2017-03-19] MEDS: HEPARIN SUB-Q SCH (10:00)
--- NOTE | 2017-03-19 12:12 | Progress Note ---
Assessment and Plan - Patient Problems (1) Cardiac enzymes elevated Current Visit: Yes Status: Acute Plan to address problem: The patient was admitted from the [facility] with complaints of rectal bleeding, found with severe anemia, hematocrit of 22. GI workup is in progress. Cardiac enzymes measured on presentation are elevated, with the CPK of 251, MB index of 6%, and troponin of 0.15. Notably, the ECG reveals no acute ischemic changes. We will empirically treat with topical nitrates and oral beta blockers, get an echocardiogram for left ventricle function assessment. Patient is not a candidate for oral antiplatelet therapy due to GI bleed and anemia. Further cardiac evaluation would depend on clinical course. (2) Atrial fibrillation Current Visit: Yes Status: Acute Plan to address problem: We will continue rate control of atrial fibrillation. Patient was on Xarelto oral anticoagulation on presentation. Due to GI bleed and anemia, he is no longer a candidate for continued oral anticoagulation going forward. Subjective Date of service: 03/19/17 Principal diagnosis: GI bleed Interval history: The patient is on BiPAP, rhythm on the fine arts model is ventricular paced at 97. Blood pressure is 85 systolic. Objective Vital Signs Temp Pulse Pulse Pulse Pulse Pulse Resp 03/19/17 12:00 97.3 F L 96 H 22 03/19/17 11:00 98 H 24 03/19/17 10:00 97 H 24 03/19/17 09:00 93 H 22 03/19/17 08:00 95.0 F L 90 20 03/19/17 07:00 94 H 24 03/19/17 06:00 96 H 24 03/19/17 05:00 99 H 19 03/19/17 04:01 107 H 25 H 03/19/17 04:00 93.0 F L 94 H 94 H 94 H 22 03/19/17 03:00 105 H 26 H 03/19/17 02:00 105 H 30 H 03/19/17 01:00 108 H 25 H 03/19/17 00:15 87 87 87 87 25 H 03/19/17 00:00 93.0 F L 117 H 23 03/18/17 23:00 138 H 25 H 03/18/17 22:00 117 H 26 H 03/18/17 21:00 107 H 22 03/18/17 20:28 121 H 24 03/18/17 20:12 121 H 26 H 03/18/17 20:00 125 H 86 22 03/18/17 19:57 03/18/17 19:00 107 H 22 03/18/17 18:00 105 H 23 03/18/17 17:34 93 H 26 H 03/18/17 17:00 105 H 37 H 03/18/17 16:00 92.8 F L 117 H 117 H 25 H 03/18/17 15:00 120 H 26 H 03/18/17 14:00 105 H 26 H 03/18/17 13:00 97 H 27 H BP Pulse Ox 03/19/17 12:00 85/61 94 03/19/17 11:00 81/56 93 03/19/17 10:00 90/62 94 03/19/17 09:00 93/60 96 03/19/17 08:00 91/64 96 03/19/17 07:00 79/53 96 03/19/17 06:00 72/52 95 03/19/17 05:00 89/58 93 03/19/17 04:01 89/47 92 03/19/17 04:00 96 03/19/17 03:00 83/57 95 03/19/17 02:00 74/48 96 03/19/17 01:00 72/43 97 03/19/17 00:15 100 03/19/17 00:00 91/61 95 03/18/17 23:00 102/71 100 03/18/17 22:00 103/55 100 03/18/17 21:00 85/61 95 03/18/17 20:28 94/38 97 03/18/17 20:12 82/58 96 03/18/17 20:00 103/58 99 03/18/17 19:57 100 03/18/17 19:00 94/64 98 03/18/17 18:00 87/63 100 03/18/17 17:34 66/51 93 03/18/17 17:00 78/53 94 03/18/17 16:00 96/63 91 03/18/17 15:00 87/53 89 03/18/17 14:00 92/68 98 03/18/17 13:00 85/62 98 - Physical Examination General: Cachectic, Other (on BiPAP) HEENT: Positive: PERRL Neck: Positive: neck supple Cardiac: Positive: Irregularly Regular Lungs: Positive: Decreased Breath Sounds Neuro: Positive: Grossly Intact Abdomen: Positive: Soft Skin: Positive: Clear Extremities: Absent: edema - Labs and Meds Cardiac Enzymes 03/19/17 Range/Units 04:50 AST 35 (5-40) units/L CBC 03/19/17 Range/Units 04:50 WBC 12.3 H (4.5-11.0) K/mm3 RBC 2.93 L (3.65-5.03) M/mm3 Hgb 9.1 L (11.8-15.2) gm/dl Hct 26.9 L (35.5-45.6) % Plt Count 77 L (140-440) K/mm3 Comprehensive Metabolic Panel 03/19/17 Range/Units 04:50 Sodium 141 (137-145) mmol/L Potassium 4.2 D (3.6-5.0) mmol/L Chloride 108.0 H (98-107) mmol/L Carbon Dioxide 17 L (22-30) mmol/L BUN 16 (9-20) mg/dL Creatinine 1.3 (0.8-1.5) mg/dL Glucose 86 (75-100) mg/dL Calcium 7.6 L (8.4-10.2) mg/dL AST 35 (5-40) units/L ALT 11 (7-56) units/L Alkaline Phosphatase 300 H (35-129) units/L Total Protein 4.7 L (6.3-8.2) g/dL Albumin 1.4 L (3.9-5) g/dL
[2017-03-19] MEDS: VANCOMYCIN 1,500 MG in NACL 0.9% 500 ML 500 ML IV SCH ×2 (12:15→21:53)
--- NOTE | 2017-03-19 16:00 | Progress Note ---
Assessment and Plan Assessment and plan: 66-year-old male with past medical history significant for CHF, A. fib, CAD status post stent, dementia was admitted to ICU after he was presented with hemorrhagic shock, rectal bleeding Rectal bleeding - No active bleeding - H&H is holding - GI consult appreciated Shock, ?hemorrhagic VS septic -Patient is hypotensive and on Levophed - Pl[facility] [employer] [employer] is following him - blood culture was negative so far Respiratory failure likely due to CHF - IV Lasix, patient is on nonrebreather mask A. fib, CAD, cardiomyopathy - Hold all BP medications Hypokalemia -Repleted Severe malnutrition CODE STATUS - DO NOT RESUSCITATE Disposition - Continue ICU care Hospitalist Physical - Constitutional Vitals: Temp Pulse Resp BP Pulse Ox 97.3 F L 89 23 117/69 94 03/19/17 15:52 03/19/17 13:00 03/19/17 13:00 03/19/17 13:00 03/19/17 13:00 General appearance: Present: no acute distress, well-nourished Results - Labs CBC & Chem 7: 03/19/17 04:50 03/19/17 04:50 Labs: Laboratory Last Values WBC 12.3 K/mm3 (4.5-11.0) H 03/19/17 04:50 RBC 2.93 M/mm3 (3.65-5.03) L 03/19/17 04:50 Hgb 9.1 gm/dl (11.8-15.2) L 03/19/17 04:50 Hct 26.9 % (35.5-45.6) L 03/19/17 04:50 MCV 92 fl (84-94) 03/19/17 04:50 MCH 31 pg (28-32) 03/19/17 04:50 MCHC 34 % (32-34) 03/19/17 04:50 RDW 17.8 % (13.2-15.2) H 03/19/17 04:50 Plt Count 77 K/mm3 (140-440) L 03/19/17 04:50 Lymph % (Auto) 6.1 % (13.4-35.0) L 03/18/17 04:50 [place] % (Auto) 5.7 % (0.0-7.3) 03/18/17 04:50 Eos % (Auto) 0.3 % (0.0-4.3) 03/18/17 04:50 Baso % (Auto) 0.1 % (0.0-1.8) 03/18/17 04:50 Lymph # 0.4 K/mm3 (1.2-5.4) L 03/18/17 04:50 [place] # 0.4 K/mm3 (0.0-0.8) 03/18/17 04:50 Eos # 0.0 K/mm3 (0.0-0.4) 03/18/17 04:50 Baso # 0.0 K/mm3 (0.0-0.1) 03/18/17 04:50 Add Manual Diff Complete 03/19/17 04:50 Total Counted 100 03/19/17 04:50 Seg Neutrophils % 87.8 % (40.0-70.0) H 03/18/17 04:50 Seg Neuts % (Manual) 77.0 % (40.0-70.0) H 03/19/17 04:50 Band Neutrophils % 19.0 % 03/19/17 04:50 Lymphocytes % (Manual) 0 % (13.4-35.0) L 03/19/17 04:50 Reactive Lymphs % (Man) 0 % 03/19/17 04:50 Monocytes % (Manual) 4.0 % (0.0-7.3) 03/19/17 04:50 Eosinophils % (Manual) 0 % (0.0-4.3) 03/19/17 04:50 Basophils % (Manual) 0 % (0.0-1.8) 03/19/17 04:50 Metamyelocytes % 0 % 03/19/17 04:50 Myelocytes % 0 % 03/19/17 04:50 Promyelocytes % 0 % 03/19/17 04:50 Blast Cells % 0 % 03/19/17 04:50 Nucleated RBC % 1.0 % (0.0-0.9) H 03/19/17 04:50 Seg Neutrophils # 6.4 K/mm3 (1.8-7.7) 03/18/17 04:50 Seg Neutrophils # Man 9.5 K/mm3 (1.8-7.7) H 03/19/17 04:50 Band Neutrophils # 2.3 K/mm3 03/19/17 04:50 Lymphocytes # (Manual) 0.0 K/mm3 (1.2-5.4) L 03/19/17 04:50 Abs React Lymphs (Man) 0.0 K/mm3 03/19/17 04:50 Monocytes # (Manual) 0.5 K/mm3 (0.0-0.8) 03/19/17 04:50 Eosinophils # (Manual) 0.0 K/mm3 (0.0-0.4) 03/19/17 04:50 Basophils # (Manual) 0.0 K/mm3 (0.0-0.1) 03/19/17 04:50 Metamyelocytes # 0.0 K/mm3 03/19/17 04:50 Myelocytes # 0.0 K/mm3 03/19/17 04:50 Promyelocytes # 0.0 K/mm3 03/19/17 04:50 Blast Cells # 0.0 K/mm3 03/19/17 04:50 WBC Morphology Not Reportable 03/19/17 04:50 Hypersegmented Neuts Not Reportable 03/19/17 04:50 Hyposegmented Neuts Not Reportable 03/19/17 04:50 Hypogranular Neuts Not Reportable 03/19/17 04:50 Smudge Cells Not Reportable 03/19/17 04:50 Toxic Granulation Not Reportable 03/19/17 04:50 Toxic Vacuolation Not Reportable 03/19/17 04:50 Dohle Bodies Not Reportable 03/19/17 04:50 Pelger-Huet Anomaly Not Reportable 03/19/17 04:50 [place] Rods Not Reportable 03/19/17 04:50 Platelet Estimate Consistent w auto 03/19/17 04:50 Clumped Platelets Not Reportable 03/19/17 04:50 Plt Clumps, EDTA Not Reportable 03/19/17 04:50 Large Platelets Not Reportable 03/19/17 04:50 Giant Platelets Not Reportable 03/19/17 04:50 Platelet Satelliting Not Reportable 03/19/17 04:50 Plt Morphology Comment Not Reportable 03/19/17 04:50 RBC Morphology Not Reportable 03/19/17 04:50 Dimorphic RBCs Not Reportable 03/19/17 04:50 Polychromasia Not Reportable 03/19/17 04:50 Hypochromasia Not Reportable 03/19/17 04:50 Poikilocytosis Not Reportable 03/19/17 04:50 Basophilic Stippling Rare 03/19/17 04:50 Anisocytosis 2+ 03/19/17 04:50 Microcytosis Not Reportable 03/19/17 04:50 Macrocytosis Not Reportable 03/19/17 04:50 Spherocytes Not Reportable 03/19/17 04:50 Pappenheimer Bodies Not Reportable 03/19/17 04:50 Sickle Cells Not Reportable 03/19/17 04:50 Target Cells 2+ 03/19/17 04:50 Tear Drop Cells Not Reportable 03/19/17 04:50 Ovalocytes Not Reportable 03/19/17 04:50 Helmet Cells Not Reportable 03/19/17 04:50 [place] Bodies Not Reportable 03/19/17 04:50 [place] Rings Not Reportable 03/19/17 04:50 Nino Cells 1+ 03/19/17 04:50 Bite Cells Not Reportable 03/19/17 04:50 Crenated Cell Not Reportable 03/19/17 04:50 Elliptocytes Not Reportable 03/19/17 04:50 Acanthocytes (Spur) Few 03/19/17 04:50 Rouleaux Not Reportable 03/19/17 04:50 Hemoglobin C Crystals Not Reportable 03/19/17 04:50 Schistocytes Not Reportable 03/19/17 04:50 Malaria parasites Not Reportable 03/19/17 04:50 Jacky Bodies Not Reportable 03/19/17 04:50 Hem Pathologist Commnt No 03/19/17 04:50 PT 22.3 Sec. (12.2-14.9) H 03/11/17 22:59 INR 1.84 (0.87-1.13) H 03/11/17 22:59 APTT 52.8 Sec. (24.2-36.6) H 03/11/17 22:59 Sodium 141 mmol/L (137-145) 03/19/17 04:50 Potassium 4.2 mmol/L (3.6-5.0) D 03/19/17 04:50 Chloride 108.0 mmol/L (98-107) H 03/19/17 04:50 Carbon Dioxide 17 mmol/L (22-30) L 03/19/17 04:50 Anion Gap 20 mmol/L 03/19/17 04:50 BUN 16 mg/dL (9-20) 03/19/17 04:50 Creatinine 1.3 mg/dL (0.8-1.5) 03/19/17 04:50 Estimated GFR > 60 ml/min 03/19/17 04:50 BUN/Creatinine Ratio 12 % 03/19/17 04:50 Glucose 86 mg/dL (75-100) 03/19/17 04:50 POC Glucose 89 (70-105) 03/19/17 15:41 Calcium 7.6 mg/dL (8.4-10.2) L 03/19/17 04:50 Total Bilirubin 1.10 mg/dL (0.1-1.2) 03/19/17 04:50 AST 35 units/L (5-40) 03/19/17 04:50 ALT 11 units/L (7-56) 03/19/17 04:50 Alkaline Phosphatase 300 units/L (35-129) H 03/19/17 04:50 Total Creatine Kinase 272 units/L (55-170) H 03/12/17 Unknown CK-MB (CK-2) 16.4 ng/mL (0.0-4.0) H 03/12/17 Unknown CK-MB (CK-2) Rel Index 6.0 (0-4) H 03/12/17 Unknown Troponin T 0.165 ng/mL (0.00-0.029) H* 03/12/17 Unknown NT-Pro-B Natriuret Pep 4673 pg/mL (0-900) H 03/11/17 22:59 Total Protein 4.7 g/dL (6.3-8.2) L 03/19/17 04:50 Albumin 1.4 g/dL (3.9-5) L 03/19/17 04:50 Albumin/Globulin Ratio 0.4 % 03/19/17 04:50 Triglycerides 34 mg/dL (2-149) 03/12/17 Unknown Cholesterol 66 mg/dL (50-199) 03/12/17 Unknown LDL Cholesterol Direct 26 mg/dL (50-130) L 03/12/17 Unknown HDL Cholesterol 34 mg/dL (40-59) L 03/12/17 Unknown Cholesterol/HDL Ratio 1.94 % 03/12/17 Unknown TSH 16.870 mlU/mL (0.270-4.200) H 03/18/17 15:19 Free T4 1.24 ng/dL (0.76-1.46) 03/18/17 15:19 Urine Color Aide (Yellow) 03/11/17 00:10 Urine Turbidity Clear (Clear) 03/11/17 00:10 Urine pH 5.0 (5.0-7.0) 03/11/17 00:10 Ur Specific [place] 1.018 (1.003-1.030) 03/11/17 00:10 Urine Protein <15 mg/dl mg/dL (Negative) 03/11/17 00:10 Urine Glucose (UA) Neg mg/dL (Negative) 03/11/17 00:10 Urine Ketones Neg mg/dL (Negative) 03/11/17 00:10 Urine Blood Mod (Negative) 03/11/17 00:10 Urine Nitrite Pos (Negative) 03/11/17 00:10 Urine Bilirubin Neg (Negative) 03/11/17 00:10 Urine Urobilinogen < 2.0 mg/dL (<2.0) 03/11/17 00:10 Ur Leukocyte Esterase Lg (Negative) 03/11/17 00:10 Urine WBC (Auto) 142.0 /HPF (0.0-6.0) H 03/11/17 00:10 Urine RBC (Auto) 9.0 /HPF (0.0-6.0) 03/11/17 00:10 U Epithel Cells (Auto) < 1.0 /HPF (0-13.0) 03/11/17 00:10 Urine Bacteria (Auto) 4+ /HPF (Negative) 03/11/17 00:10 Urine Mucus 3+ /HPF 03/11/17 00:10 Urine Opiates Screen Presumptive negative 03/11/17 00:10 Urine Methadone Screen Presumptive negative 03/11/17 00:10 Ur Barbiturates Screen Presumptive negative 03/11/17 00:10 Ur Phencyclidine Scrn Presumptive negative 03/11/17 00:10 Ur Amphetamines Screen Presumptive positive 03/11/17 00:10 U Benzodiazepines Scrn Presumptive negative 03/11/17 00:10 Urine Cocaine Screen Presumptive negative 03/11/17 00:10 U Marijuana (THC) Screen Presumptive negative 03/11/17 00:10 Drugs of Abuse Note Disclamer 03/11/17 00:10 Blood Type O POSITIVE 03/11/17 22:59 Antibody Screen Negative 03/11/17 22:59 Crossmatch See Detail 03/11/17 22:59
[2017-03-19] MEDS: AZACTAM/NS 1 GM/50 ML 1 GM/50 ML VIAL IV SCH ×3 (16:12→21:52)
--- NOTE | 2017-03-19 16:59 | Progress Note ---
Assessment and Plan 1. GI bleed. No evidence of bleeding at this time. 2. Hypoxemia. No weight increase oxygen requirement. Minimal chest congestion 3. Acute blood loss anemia 4. Hemorrhagic shock. Controlled 5. Cardiomyopathy 6. afib 7. Dementia per chart 8. Hypernatremia 9. SIRS/hypothermia/hypotension, r/o sepsis Rec: Continue monitoring H/H F/u GI recs Blood pressure monitoring Continue venturi mask. I discussed with RT using high flow oxygen also as an alternative if needed. Prior notes, family has made him DNR/DNI; long-term prognosis is poor due to multiple issues Critical care time was 31 minutes of [id number] evaluation and coordination of care. Subjective Date of service: 03/19/17 Principal diagnosis: GI bleed Interval history: Reports no complaints. No chest pain or shortness of breath reported. Noted with some desaturation to 89% on Venturi mask as earlier today. Objective Vital Signs - 12hr 03/19/17 03/19/17 03/19/17 05:00 06:00 07:00 Temperature Pulse Rate 99 H 96 H 94 H Respiratory 19 24 24 Rate Blood Pressure 89/58 72/52 79/53 O2 Sat by Pulse 93 95 96 Oximetry 03/19/17 03/19/17 03/19/17 08:00 09:00 10:00 Temperature 95.0 F L Pulse Rate 90 93 H 70 Respiratory 20 22 24 Rate Blood Pressure 91/64 93/60 90/62 O2 Sat by Pulse 100 96 94 Oximetry 03/19/17 03/19/17 03/19/17 11:00 12:00 13:00 Temperature 97.3 F L Pulse Rate 98 H 96 H 89 Respiratory 24 22 23 Rate Blood Pressure 81/56 85/61 117/69 O2 Sat by Pulse 93 98 94 Oximetry 03/19/17 03/19/17 03/19/17 14:01 15:00 15:52 Temperature 97.3 F L Pulse Rate 90 99 H Respiratory 24 26 H Rate Blood Pressure 119/58 108/66 O2 Sat by Pulse 92 92 Oximetry 03/19/17 16:00 Temperature Pulse Rate 94 H Respiratory 26 H Rate Blood Pressure 97/65 O2 Sat by Pulse 92 Oximetry Constitutional: no acute distress, alert Eyes: non-icteric ENT: oropharynx moist Effort: normal Ascultation: Bilateral: clear Cardiovascular: regular rate and rhythm (no mrg) Gastrointestinal: normoactive bowel sounds, soft, non-tender, non-distended Integumentary: decubitus ulcer Extremities: edema (1+ bilateral LE edema) Neurologic: pupils equal and round, CN II-XII normal, other (awake, alert, follows commands, answers questions) Psychiatric: mood appropriate, affect normal CBC and BMP: 03/19/17 04:50 03/19/17 04:50 ABG, PT/INR, D-dimer: PT/INR, D-dimer PT 22.3 Sec. (12.2-14.9) H 03/11/17 22:59 INR 1.84 (0.87-1.13) H 03/11/17 22:59 Abnormal lab findings: Abnormal Labs 03/11/17 03/11/17 03/11/17 00:10 22:59 22:59 WBC RBC 2.40 L Hgb 7.2 L Hct 22.1 L RDW 18.0 H Plt Count 104 L Lymph % (Auto) [place] % (Auto) Lymph # [place] # Seg Neutrophils % Seg Neuts % (Manual) Lymphocytes % (Manual) Nucleated RBC % Seg Neutrophils # Seg Neutrophils # Man Lymphocytes # (Manual) PT 22.3 H INR 1.84 H APTT 52.8 H Sodium Potassium Chloride Carbon Dioxide Glucose POC Glucose Calcium Alkaline Phosphatase Total Creatine Kinase CK-MB (CK-2) CK-MB (CK-2) Rel Index Troponin T NT-Pro-B Natriuret Pep Total Protein Albumin LDL Cholesterol Direct HDL Cholesterol TSH Urine WBC (Auto) 142.0 H Crossmatch 03/11/17 03/11/17 03/12/17 22:59 22:59 05:51 WBC RBC Hgb Hct RDW Plt Count Lymph % (Auto) [place] % (Auto) Lymph # [place] # Seg Neutrophils % Seg Neuts % (Manual) Lymphocytes % (Manual) Nucleated RBC % Seg Neutrophils # Seg Neutrophils # Man Lymphocytes # (Manual) PT INR APTT Sodium Potassium Chloride 108.7 H Carbon Dioxide Glucose 72 L POC Glucose Calcium 7.6 L Alkaline Phosphatase Total Creatine Kinase 251 H CK-MB (CK-2) 15.2 H CK-MB (CK-2) Rel Index 6.0 H Troponin T 0.151 H* NT-Pro-B Natriuret Pep 4673 H Total Protein 4.9 L Albumin 1.6 L LDL Cholesterol Direct HDL Cholesterol TSH Urine WBC (Auto) Crossmatch See Detail 03/12/17 03/12/17 03/12/17 05:51 10:45 10:45 WBC RBC Hgb 7.4 L 8.5 L Hct 22.4 L 26.3 L RDW Plt Count Lymph % (Auto) [place] % (Auto) Lymph # [place] # Seg Neutrophils % Seg Neuts % (Manual) Lymphocytes % (Manual) Nucleated RBC % Seg Neutrophils # Seg Neutrophils # Man Lymphocytes # (Manual) PT INR APTT Sodium Potassium Chloride Carbon Dioxide Glucose POC Glucose Calcium Alkaline Phosphatase Total Creatine Kinase 238 H CK-MB (CK-2) 12.7 H CK-MB (CK-2) Rel Index 5.3 H Troponin T 0.153 H* NT-Pro-B Natriuret Pep Total Protein Albumin LDL Cholesterol Direct HDL Cholesterol TSH Urine WBC (Auto) Crossmatch 03/12/17 03/12/17 03/12/17 13:40 23:24 Unknown WBC RBC Hgb 8.2 L Hct 24.5 L RDW Plt Count Lymph % (Auto) [place] % (Auto) Lymph # [place] # Seg Neutrophils % Seg Neuts % (Manual) Lymphocytes % (Manual) Nucleated RBC % Seg Neutrophils # Seg Neutrophils # Man Lymphocytes # (Manual) PT INR APTT Sodium Potassium Chloride Carbon Dioxide Glucose POC Glucose 154 H Calcium Alkaline Phosphatase Total Creatine Kinase 272 H CK-MB (CK-2) 16.4 H CK-MB (CK-2) Rel Index 6.0 H Troponin T 0.165 H* NT-Pro-B Natriuret Pep Total Protein Albumin LDL Cholesterol Direct 26 L HDL Cholesterol 34 L TSH Urine WBC (Auto) Crossmatch 03/13/17 03/13/17 03/13/17 04:00 04:00 05:06 WBC 12.1 H RBC 2.57 L Hgb 7.8 L Hct 23.2 L RDW 16.7 H Plt Count 112 L Lymph % (Auto) 6.7 L [place] % (Auto) Lymph # 0.8 L [place] # 0.9 H Seg Neutrophils % 86.0 H Seg Neuts % (Manual) Lymphocytes % (Manual) Nucleated RBC % Seg Neutrophils # 10.4 H Seg Neutrophils # Man Lymphocytes # (Manual) PT INR APTT Sodium Potassium Chloride 108.1 H Carbon Dioxide Glucose 158 H POC Glucose 161 H Calcium 7.4 L Alkaline Phosphatase Total Creatine Kinase CK-MB (CK-2) CK-MB (CK-2) Rel Index Troponin T NT-Pro-B Natriuret Pep Total Protein Albumin LDL Cholesterol Direct HDL Cholesterol TSH Urine WBC (Auto) Crossmatch 03/13/17 03/13/17 03/13/17 11:52 17:19 21:14 WBC RBC Hgb Hct RDW Plt Count Lymph % (Auto) [place] % (Auto) Lymph # [place] # Seg Neutrophils % Seg Neuts % (Manual) Lymphocytes % (Manual) Nucleated RBC % Seg Neutrophils # Seg Neutrophils # Man Lymphocytes # (Manual) PT INR APTT Sodium Potassium Chloride Carbon Dioxide Glucose POC Glucose 206 H 136 H 120 H Calcium Alkaline Phosphatase Total Creatine Kinase CK-MB (CK-2) CK-MB (CK-2) Rel Index Troponin T NT-Pro-B Natriuret Pep Total Protein Albumin LDL Cholesterol Direct HDL Cholesterol TSH Urine WBC (Auto) Crossmatch 03/14/17 03/14/17 03/14/17 05:31 07:50 07:50 WBC RBC 2.35 L Hgb 7.1 L Hct 21.3 L RDW 16.8 H Plt Count 105 L Lymph % (Auto) [place] % (Auto) Lymph # [place] # Seg Neutrophils % Seg Neuts % (Manual) Lymphocytes % (Manual) Nucleated RBC % Seg Neutrophils # Seg Neutrophils # Man Lymphocytes # (Manual) PT INR APTT Sodium Potassium Chloride 110.4 H Carbon Dioxide Glucose 103 H POC Glucose 125 H Calcium 7.2 L Alkaline Phosphatase Total Creatine Kinase CK-MB (CK-2) CK-MB (CK-2) Rel Index Troponin T NT-Pro-B Natriuret Pep Total Protein Albumin LDL Cholesterol Direct HDL Cholesterol TSH Urine WBC (Auto) Crossmatch 03/14/17 03/14/17 03/14/17 11:51 16:10 22:10 WBC RBC Hgb 7.7 L Hct 23.3 L RDW Plt Count Lymph % (Auto) [place] % (Auto) Lymph # [place] # Seg Neutrophils % Seg Neuts % (Manual) Lymphocytes % (Manual) Nucleated RBC % Seg Neutrophils # Seg Neutrophils # Man Lymphocytes # (Manual) PT INR APTT Sodium Potassium Chloride Carbon Dioxide Glucose POC Glucose 135 H 144 H Calcium Alkaline Phosphatase Total Creatine Kinase CK-MB (CK-2) CK-MB (CK-2) Rel Index Troponin T NT-Pro-B Natriuret Pep Total Protein Albumin LDL Cholesterol Direct HDL Cholesterol TSH Urine WBC (Auto) Crossmatch 03/15/17 03/15/17 03/15/17 05:10 05:10 08:15 WBC RBC 2.46 L Hgb 7.6 L Hct 22.2 L RDW 16.2 H Plt Count 86 L Lymph % (Auto) [place] % (Auto) Lymph # [place] # Seg Neutrophils % Seg Neuts % (Manual) Lymphocytes % (Manual) Nucleated RBC % Seg Neutrophils # Seg Neutrophils # Man Lymphocytes # (Manual) PT INR APTT Sodium 147 H Potassium Chloride 113.0 H Carbon Dioxide 21 L Glucose 122 H POC Glucose 119 H Calcium 6.9 L Alkaline Phosphatase Total Creatine Kinase CK-MB (CK-2) CK-MB (CK-2) Rel Index Troponin T NT-Pro-B Natriuret Pep Total Protein Albumin LDL Cholesterol Direct HDL Cholesterol TSH Urine WBC (Auto) Crossmatch 03/15/17 03/15/17 03/15/17 11:55 11:57 17:10 WBC RBC Hgb 7.8 L Hct 23.1 L RDW Plt Count Lymph % (Auto) [place] % (Auto) Lymph # [place] # Seg Neutrophils % Seg Neuts % (Manual) Lymphocytes % (Manual) Nucleated RBC % Seg Neutrophils # Seg Neutrophils # Man Lymphocytes # (Manual) PT INR APTT Sodium Potassium Chloride Carbon Dioxide Glucose POC Glucose 130 H 123 H Calcium Alkaline Phosphatase Total Creatine Kinase CK-MB (CK-2) CK-MB (CK-2) Rel Index Troponin T NT-Pro-B Natriuret Pep Total Protein Albumin LDL Cholesterol Direct HDL Cholesterol TSH Urine WBC (Auto) Crossmatch 03/15/17 03/16/17 03/16/17 21:35 07:52 09:06 WBC RBC 2.51 L Hgb 7.5 L Hct 22.5 L RDW 16.2 H Plt Count 80 L Lymph % (Auto) 10.6 L [place] % (Auto) 8.3 H Lymph # 0.9 L [place] # Seg Neutrophils % 79.5 H Seg Neuts % (Manual) Lymphocytes % (Manual) Nucleated RBC % Seg Neutrophils # Seg Neutrophils # Man Lymphocytes # (Manual) PT INR APTT Sodium Potassium Chloride Carbon Dioxide Glucose POC Glucose 145 H 107 H Calcium Alkaline Phosphatase Total Creatine Kinase CK-MB (CK-2) CK-MB (CK-2) Rel Index Troponin T NT-Pro-B Natriuret Pep Total Protein Albumin LDL Cholesterol Direct HDL Cholesterol TSH Urine WBC (Auto) Crossmatch 03/16/17 03/16/17 03/16/17 09:06 16:05 22:18 WBC RBC Hgb Hct RDW Plt Count Lymph % (Auto) [place] % (Auto) Lymph # [place] # Seg Neutrophils % Seg Neuts % (Manual) Lymphocytes % (Manual) Nucleated RBC % Seg Neutrophils # Seg Neutrophils # Man Lymphocytes # (Manual) PT INR APTT Sodium Potassium 3.3 L Chloride 111.5 H Carbon Dioxide Glucose 110 H POC Glucose 121 H 195 H Calcium 7.3 L Alkaline Phosphatase Total Creatine Kinase CK-MB (CK-2) CK-MB (CK-2) Rel Index Troponin T NT-Pro-B Natriuret Pep Total Protein Albumin LDL Cholesterol Direct HDL Cholesterol TSH Urine WBC (Auto) Crossmatch 03/17/17 03/17/17 03/17/17 05:22 06:00 06:00 WBC RBC 2.76 L Hgb 8.2 L Hct 25.0 L RDW 16.7 H Plt Count 77 L Lymph % (Auto) 13.1 L [place] % (Auto) Lymph # 1.0 L [place] # Seg Neutrophils % 78.7 H Seg Neuts % (Manual) Lymphocytes % (Manual) Nucleated RBC % Seg Neutrophils # Seg Neutrophils # Man Lymphocytes # (Manual) PT INR APTT Sodium Potassium 3.4 L Chloride 110.3 H Carbon Dioxide Glucose POC Glucose 106 H Calcium 7.2 L Alkaline Phosphatase 146 H Total Creatine Kinase CK-MB (CK-2) CK-MB (CK-2) Rel Index Troponin T NT-Pro-B Natriuret Pep Total Protein 4.6 L Albumin 1.6 L LDL Cholesterol Direct HDL Cholesterol TSH Urine WBC (Auto) Crossmatch 03/17/17 03/17/17 03/18/17 16:12 21:36 04:50 WBC RBC 2.71 L Hgb 8.4 L Hct 24.4 L RDW 17.0 H Plt Count 60 L Lymph % (Auto) 6.1 L [place] % (Auto) Lymph # 0.4 L [place] # Seg Neutrophils % 87.8 H Seg Neuts % (Manual) Lymphocytes % (Manual) Nucleated RBC % Seg Neutrophils # Seg Neutrophils # Man Lymphocytes # (Manual) PT INR APTT Sodium Potassium Chloride Carbon Dioxide Glucose POC Glucose 111 H 134 H Calcium Alkaline Phosphatase Total Creatine Kinase CK-MB (CK-2) CK-MB (CK-2) Rel Index Troponin T NT-Pro-B Natriuret Pep Total Protein Albumin LDL Cholesterol Direct HDL Cholesterol TSH Urine WBC (Auto) Crossmatch 03/18/17 03/18/17 03/18/17 04:50 07:41 12:30 WBC RBC Hgb Hct RDW Plt Count Lymph % (Auto) [place] % (Auto) Lymph # [place] # Seg Neutrophils % Seg Neuts % (Manual) Lymphocytes % (Manual) Nucleated RBC % Seg Neutrophils # Seg Neutrophils # Man Lymphocytes # (Manual) PT INR APTT Sodium Potassium 3.1 L Chloride 108.4 H Carbon Dioxide 19 L Glucose 121 H POC Glucose 126 H 113 H Calcium 7.3 L Alkaline Phosphatase 183 H Total Creatine Kinase CK-MB (CK-2) CK-MB (CK-2) Rel Index Troponin T NT-Pro-B Natriuret Pep Total Protein 4.3 L Albumin 1.5 L LDL Cholesterol Direct HDL Cholesterol TSH Urine WBC (Auto) Crossmatch 03/18/17 03/18/17 03/19/17 15:19 16:23 04:50 WBC 12.3 H RBC 2.93 L Hgb 9.1 L Hct 26.9 L RDW 17.8 H Plt Count 77 L Lymph % (Auto) [place] % (Auto) Lymph # [place] # Seg Neutrophils % Seg Neuts % (Manual) 77.0 H Lymphocytes % (Manual) 0 L Nucleated RBC % 1.0 H Seg Neutrophils # Seg Neutrophils # Man 9.5 H Lymphocytes # (Manual) 0.0 L PT INR APTT Sodium Potassium Chloride Carbon Dioxide Glucose POC Glucose 124 H Calcium Alkaline Phosphatase Total Creatine Kinase CK-MB (CK-2) CK-MB (CK-2) Rel Index Troponin T NT-Pro-B Natriuret Pep Total Protein Albumin LDL Cholesterol Direct HDL Cholesterol TSH 16.870 H Urine WBC (Auto) Crossmatch 03/19/17 04:50 WBC RBC Hgb Hct RDW Plt Count Lymph % (Auto) [place] % (Auto) Lymph # [place] # Seg Neutrophils % Seg Neuts % (Manual) Lymphocytes % (Manual) Nucleated RBC % Seg Neutrophils # Seg Neutrophils # Man Lymphocytes # (Manual) PT INR APTT Sodium Potassium Chloride 108.0 H Carbon Dioxide 17 L Glucose POC Glucose Calcium 7.6 L Alkaline Phosphatase 300 H Total Creatine Kinase CK-MB (CK-2) CK-MB (CK-2) Rel Index Troponin T NT-Pro-B Natriuret Pep Total Protein 4.7 L Albumin 1.4 L LDL Cholesterol Direct HDL Cholesterol TSH Urine WBC (Auto) Crossmatch
[2017-03-19 17:21] LABS: Bacteria,Urine 4+ /HPF (Negative); Bilirubin,Urine SM (Negative); Blood,Urine LG (Negative); Color,Urine Amber (Yellow); Nitrite,Urine NEG (Negative); Urobilinogen,Urine < 2.0 mg/dL (<2.0)
[2017-03-19 17:23] LABS: RBC,Urine > 182.0 /HPF (0.0-6.0); WBC,Urine > 182.0 /HPF (0.0-6.0)
[2017-03-19 17:30] LABS: Ictotest,Urine Positive (Negative)
[2017-03-19] MEDS: SENOKOT S PO SCH (21:55)
[2017-03-20 06:17] LABS: Hemoglobin 8.4 gm/dl (11.8-15.2); Mean Corpuscular HGB Conc 32 % (32-34); Mean Corpuscular Hemoglobin 31 pg (28-32); Mean Corpuscular Volume 95 fl (84-94); Red Blood Count 2.73 M/mm3 (3.65-5.03); Red Cell Distribution Width 18.7 % (13.2-15.2)
[2017-03-20 06:20] LABS: Platelet Count 71 K/mm3 (140-440)
[2017-03-20 06:23] LABS: Calcium 7.4 mg/dL (8.4-10.2)
--- NOTE | 2017-03-20 07:03 | Event Note ---
Date: 03/20/17 time of [id number]
--- NOTE | 2017-03-20 08:14 | Death Summary ---
Summary - Providers Date of service: 03/20/17 Consults: 03/12/17 05:18 Consult to Physician [CONS] Routine Consulting Provider: JUDY DIEZ Reason For Exam: afib on anticoagulation, gib Place consult to:: Dr. Garcia Notified:: Answering Service Phone number called:: [phone] Was contact made?: Yes If yes, spoke with:: Dr. Garcia Time called:: 06:05 Comment:: Dr. Velasquez (hospitalist) spoke with Dr. Garcia Consult to Physician [CONS] Urgent Consulting Provider: VALERIY MARTINEZ Reason For Exam: rectal bleed Place consult to:: Dr. Martinez Notified:: Answering Service Phone number called:: [phone] Was contact made?: Yes If yes, spoke with:: Dr. Martinez Time called:: 05:22 Comment:: Dr. Velasquez (Hospitalist) spoke with Dr. Martinez 03/12/17 05:23 Consult to Physician [CONS] Routine Consulting Provider: LASHAWN FRANCO Reason For Exam: cc Place consult to:: Dr. Franco Notified:: Answering Service Phone number called:: [phone] Was contact made?: No 03/12/17 06:24 Consult to Wound/ET Nurse [CONS] Routine Reason For Exam: wound eval 03/19/17 15:47 Consult to Dietitian/Nutrition [CONS] Routine Physician Instructions: Reason For Exam: Reason for Consult: Malnutrition Attending: SLY DC MD - summary Date of admission: 03/12/17 05:18 Date of : 03/20/17 Reason for admission: GI bleed Significant findings: Admission H/P 66 year old man with history of Afib, diabetes, coronary artery disease, prostate cancer, hypothyroidism, recent C. difficile was [facility] from [facility] for evaluaion of altered mental status and rectal bleed. The patient is awake, he is unable to give a history. He had 1 episode of rectal bleed here in the ER. Blood pressure upon arrival was systolic 83 and dropped to 50s. Review of system is unobtainable. Patient was admitted to the floor and he was anemic and was transfused with PRBCs. GI was consulted and patient doesn't want any invasive procedures. Patient 's BP was dropped down and he had hypothermia and patient was on pressors and despite that pressure was dropped and patient . patient had acute hypoxemic respiratory failure was on non rebreather mask and patient was desaturating. Patient was DNR and DNI. He was treated with IV antibiotics for possible septic shock with multiorgan failure. patient's poor prognosis was communicated with the patient and family members. Procedures/treatments rendered: As stated in the pertinent studies. Pertinent studies: ECHO EF 30-35% CXR volume overload Disposition: to [facility] [place] - Final diagnosis (1) Septic shock Note: Final diagnosis: (2) Hemorrhagic shock Note: Final diagnosis: (3) Acute hypoxemic respiratory failure Note: Final diagnosis: (4) NSTEMI (non-ST elevated myocardial infarction) Note: Final diagnosis: (5) Altered mental status Note: Final diagnosis: (6) Atrial fibrillation Note: Final diagnosis: (7) Cardiac enzymes elevated Note: Final diagnosis: (8) Fecal impaction in rectum Note: Final diagnosis: (9) GI bleed Note: Final diagnosis: (10) UTI (urinary tract infection) Note: Final diagnosis:
[2017-03-20 08:20] VITALS: BP 60/30
[2017-03-20 08:30] LABS: Acanthocytes Few; Anisocytosis 2+; Band Neutrophils # (Manual) 1.6 K/mm3; Basophils % (Manual) 0 % (0.0-1.8); Burr Cells 1+; Eosinophils % (Manual) 0 % (0.0-4.3); Total Cells Counted 100
[2017-03-20 08:31] LABS: Basophilic Stippling Rare; Platelet Estimate Consistent w Auto
[2017-03-20] MEDS ORDERED: VANCOMYCIN 1,500 MG in NACL 0.9% 500 ML 500 ML IV SCH (12:00)
== END 2017-03-20 12:05 | DRG 871 ==
LOC: ED 21:38 → CC1 03-12 05:18
PROVIDERS: ADMIT Internal Medicine; ATTEND Internal Medicine
PROC: 02HV33Z Insertion of Infusion Device into Superior Vena Cava, Percutaneous Approach (ICD-10-PCS; principal; 2017-03-12)
PROC: 30233L1 Transfusion of Nonautologous Fresh Plasma into Peripheral Vein, Percutaneous Approach (ICD-10-PCS; 2017-03-12)
PROC: 30233N1 Transfusion of Nonautologous Red Blood Cells into Peripheral Vein, Percutaneous Approach (ICD-10-PCS; 2017-03-12)
PROC: 30233K1 Transfusion of Nonautologous Frozen Plasma into Peripheral Vein, Percutaneous Approach (ICD-10-PCS; 2017-03-12)
PROC: 5A09457 Assistance with Respiratory Ventilation, 24-96 Consecutive Hours, Continuous Positive Airway Pressure (ICD-10-PCS; 2017-03-18)
DX: A41.9 Sepsis, unspecified organism (principal); J18.9 Pneumonia, unspecified organism; R65.21 Severe sepsis with septic shock; J96.01 Acute respiratory failure with hypoxia; I21.4 Non-ST elevation (NSTEMI) myocardial infarction; E43 Unspecified severe protein-calorie malnutrition; K62.5 Hemorrhage of anus and rectum; D62 Acute posthemorrhagic anemia; N39.0 Urinary tract infection, site not specified; E87.0 Hyperosmolality and hypernatremia; D68.9 Coagulation defect, unspecified; R57.8 Other shock; I95.9 Hypotension, unspecified; I50.9 Heart failure, unspecified; L89.609 Pressure ulcer of unspecified heel, unspecified stage; L89.159 Pressure ulcer of sacral region, unspecified stage; T68.XXXA Hypothermia, initial encounter; E11.9 Type 2 diabetes mellitus without complications; I25.10 Atherosclerotic heart disease of native coronary artery without angina pectoris; I11.0 Hypertensive heart disease with heart failure; E03.9 Hypothyroidism, unspecified; Z66 Do not resuscitate; K56.41 Fecal impaction; F03.90 Unspecified dementia, unspecified severity, without behavioral disturbance, psychotic disturbance, mood disturbance, and anxiety; I48.0 Paroxysmal atrial fibrillation; I25.5 Ischemic cardiomyopathy; E87.6 Hypokalemia; Z68.28 Body mass index [BMI] 28.0-28.9, adult; Z85.46 Personal history of malignant neoplasm of prostate; Z95.0 Presence of cardiac pacemaker; Z86.73 Personal history of transient ischemic attack (TIA), and cerebral infarction without residual deficits; Z86.718 Personal history of other venous thrombosis and embolism; Z79.01 Long term (current) use of anticoagulants; Z79.899 Other long term (current) drug therapy; Z90.49 Acquired absence of other specified parts of digestive tract
CPT/HCPCS: 36415; 36430; 70450; 71010; 74000; 74177; 80048; 80053; 80061; 80307; 81001; 82270; 82550; 82553; 82962; 83880; 84439; 84443; 84484; 85007; 85014; 85018; 85025; 85027; 85610; 85730; 86850; 86900; 86901; 86920; 87040; 93005; 93010; 93306; 94660; 94760; 96365; 96375; A9270-GY; J1644; J1815; J1940; J1956; J2270; J2405; J3370; J3480; J7030; J7040; J7050; P9016; P9017; Q9967